=== PATIENT | female | born 1975 | race Hispanic/Latino ===

== ENCOUNTER 2021-07-12 13:44 | Emergency (ER) | payer OTHER ==
[2021-07-12 15:25] LABS: Absolute Lymphocytes (CBC) 1.6 K/uL (0.7-4.9); Basophils % 0.4 % (0-1.3); Hematocrit 39.4 % (36.0-45.0); Lymphocytes % 23.2 % (15.3-44.8); MPV 9.3 fL (7.6-11.3); RBC Red Blood Cell Count 4.36 M/uL (3.86-4.86)
[2021-07-12 15:27] LABS: Protime INR 1.03
[2021-07-12 15:28] LABS: Urine Blood 1+ (Negative); Urine Glucose 2+ (Negative); Urine Protein Negative (Negative)
--- NOTE | 2021-07-12 15:33 | RAD REPORT ---
EXAM DESCRIPTION: RAD - Chest Single View - 07/12/2021 3:18 pm CLINICAL HISTORY: CHEST PAIN Chest pain. COMPARISON: No comparisons FINDINGS: Portable technique limits examination quality. The lungs are grossly clear. The heart is normal in size. No displaced fractures. IMPRESSION: No acute intrathoracic process suspected.
[2021-07-12 15:42] LABS: ALT/SGPT 24 U/L (12-78); AST/SGOT 15 U/L (15-37); Albumin 4.1 g/dL (3.4-5.0); Alkaline Phosphatase 49 U/L (45-117); BUN Blood Urea Nitrogen 22 mg/dL (7-18); Bicarbonate 21 mmol/L (21-32); Bilirubin Direct < 0.1 mg/dL (0-0.2); Bilirubin Total 0.4 mg/dL (0.2-1.0); Glucose Level 186 mg/dL (74-106); Magnesium 2.2 mg/dL (1.8-2.4); NT PRO-BNP 55 pg/mL (<125); Potassium 3.6 mmol/L (3.5-5.1); Protein, Total 7.7 g/dL (6.4-8.2); Sodium Level 141 mmol/L (136-145); Troponin (Emerg Dept Use Only) < 0.02 ng/mL (0.0-0.045)
--- NOTE | 2021-07-12 16:28 | ER ---
Nurse's Notes [facility] Name: Pablito Bonner Age: 46 yrs Sex: Female : 1975 Arrival Date: 07/12/2021 Time: 13:48 Bed 5 Private MD: Diagnosis: Constipation Presentation: 07/12 14:09 Chief complaint: Patient states: intermittent shortness of breath x 2-3 weeks, worse ss today. Constipation, abd pain, R sided chest wall pain and headache x a couple of days. Coronavirus screen: Client denies travel out of the [place] in the last 14 days. Ebola Screen: Patient denies exposure to infectious person. Patient denies travel to an Ebola-affected area in the 21 days before illness onset. Initial Sepsis Screen: Does the patient meet any 2 criteria? No. Patient's initial sepsis screen is negative. Does the patient have a suspected source of infection? No. Patient's initial sepsis screen is negative. Risk Assessment: Do you want to hurt yourself or someone else? Patient reports no desire to harm self or others. Onset of symptoms is unknown. 14:09 Method Of Arrival: Ambulatory ss 14:09 Acuity: KALLI 3 ss Triage Assessment: 14:18 General: Appears in no apparent distress. Respiratory: Reports shortness of breath at 5 rest labored breathing since x3 weeks on and off Onset: The symptoms/episode began/occurred x3 weeks on and off, the patient has mild shortness of breath. 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 - Social history:: Smoking status: Patient denies any tobacco usage or history of. Patient/guardian denies using alcohol, street drugs, The patient lives with family, with spouse. - Family history:: not pertinent. Screenin:17 Abuse screen: Denies threats or abuse. Denies injuries from another. Nutritional jh5 screening: No deficits noted. Tuberculosis screening: No symptoms or risk factors identified. Fall Risk None identified. Assessment: 14:13 General: Appears distressed, well groomed, well developed, Behavior is calm, jh5 cooperative, appropriate for age, anxious. Pain: Denies pain. Neuro: No deficits noted. Level of Consciousness is awake, alert, obeys commands, Oriented to person, place, time, situation, Speech is normal. Cardiovascular: No deficits noted. Capillary refill < 3 seconds Patient's skin is warm and dry. Cardiovascular: Rhythm is regular. Respiratory: Airway is patent Trachea midline Respiratory effort is even, unlabored, Respiratory pattern is symmetrical. 14:15 Reassessment: 46 y/o female with PMHX; kidney stones, DM2, and migraines states she jh5 feels as if she isnt getting enough air. Pt 100% on room air, Pt respirations are even and unlabored, however, every so often, she will take an exaggerated breath. Pt is AAOX4, ambulatory without assist, color is appropriate for ethnicity, skin warm and dry, pt in NAD at this time. Respiratory: Breath sounds are clear bilaterally. Vital Signs: 14:09 Resp 16; Weight 66.22 kg; Height 5 ft. 3 in. (160.02 cm); Pain 5/10; ss 14:17 BP 174 / 81; Pulse 79; Resp 16; Pulse Ox 100% ; jh5 14:09 Body Mass Index 25.86 (66.22 kg, 160.02 cm) ED Course: 13:48 Patient arrived in ED. mr 14:12 Triage completed. 14:13 Anabel Farrell, RN is Primary Nurse. [facility] 14:13 Arm band placed on right wrist. 14:19 Patient has correct armband on for positive identification. Bed in low position. Call [facility] light in reach. Side rails up X 1. 14:19 No provider procedures requiring assistance completed. [facility] 14:27 Marcie Shafer MD is Attending Physician. [facility] 15:18 XRAY Chest (1 view) In Process Unspecified. EDMS Administered Medications: No medications were administered Outcome: 16:28 Discharge ordered by . [facility] 17:00 Patient left the ED. ss Signatures: Dispatcher [employer] EDMS Fabián Sanaz WilliamFarrah saunders, MANDY RN Marcie Shafer MD MD idAnabel De La Vega RN RN [facility] Corrections: (The following items were deleted from the chart) 18:08 18:07 Patient left the ED. ss ss
--- NOTE | 2021-07-12 16:28 | EDPHYS ---
Physician Documentation [facility] Name: Pablito Bonner Age: 46 yrs Sex: Female : 1975 Arrival Date: 07/12/2021 Time: 13:48 Bed 5 Private MD: ED Physician Marcie Shafer HPI: 07/12 14:55 This 46 yrs old Female presents to ER via Ambulatory with complaints of ma2 Breathing Difficulty. 14:55 Onset: The symptoms/episode began/occurred gradually, 3 month(s) ago. Associated signs ma2 and symptoms: Pertinent positives: constipation, Pertinent negatives: chest pain, non-productive cough, productive cough, diaphoresis, fever, hemoptysis, loss of consciousness, nausea, numbness in extremities, visual changes. Severity of symptoms: At their worst the symptoms were moderate in the emergency department the symptoms are unchanged. The patient has not experienced similar symptoms in the past. 14:56 Patient also patient has constipation last bowel movement was 7 days ago.. 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 - Social history:: Smoking status: Patient denies any tobacco usage or history of. Patient/guardian denies using alcohol, street drugs, The patient lives with family, with spouse. - Family history:: not pertinent. ROS: 14:55 Constitutional: Negative for fever, chills, and weight loss. ma2 14:55 All other systems are negative. Exam: 14:55 Constitutional: This is a well developed, well nourished patient who is awake, alert, ma2 and in no acute distress. Head/Face: Normocephalic, atraumatic. Eyes: Pupils equal round and reactive to light, extra-ocular motions intact. Lids and lashes normal. Conjunctiva and sclera are non-icteric and not injected. Cornea within normal limits. Periorbital areas with no swelling, redness, or edema. ENT: Nares patent. No nasal discharge, no septal abnormalities noted. Tympanic membranes are normal and external auditory canals are clear. Oropharynx with no redness, swelling, or masses, exudates, or evidence of obstruction, uvula midline. Mucous membranes moist. Neck: Trachea midline, no thyromegaly or masses palpated, and no cervical lymphadenopathy. Supple, full range of motion without nuchal rigidity, or vertebral point tenderness. No Meningismus. Chest/axilla: Normal chest wall appearance and motion. Nontender with no deformity. No lesions are appreciated. Cardiovascular: Regular rate and rhythm with a normal S1 and S2. No gallops, murmurs, or rubs. Normal PMI, no JVD. No pulse deficits. Respiratory: Lungs have equal breath sounds bilaterally, clear to auscultation and percussion. No rales, rhonchi or wheezes noted. No increased work of breathing, no retractions or nasal flaring. Abdomen/GI: Soft, non-tender, with normal bowel sounds. No distension or tympany. No guarding or rebound. No evidence of tenderness throughout. Back: No spinal tenderness. No costovertebral tenderness. Full range of motion. Skin: Warm, dry with normal turgor. Normal color with no rashes, no lesions, and no evidence of cellulitis. MS/ Extremity: Pulses equal, no cyanosis. Neurovascular intact. Full, normal range of motion. Neuro: Awake and alert, GCS 15, oriented to person, place, time, and situation. Cranial nerves II-XII grossly intact. Motor strength 5/5 in all extremities. Sensory grossly intact. Cerebellar exam normal. Normal gait. Psych: Awake, alert, with orientation to person, place and time. Behavior, mood, and affect are within normal limits. Vital Signs: 14:09 Resp 16; Weight 66.22 kg; Height 5 ft. 3 in. (160.02 cm); Pain 5/10; ss 14:17 BP 174 / 81; Pulse 79; Resp 16; Pulse Ox 100% ; jh5 14:09 Body Mass Index 25.86 (66.22 kg, 160.02 cm) ss MDM: 14:27 Patient medically screened. ma2 14:55 Differential diagnosis: Anemia Anxiety Reaction Bronchitis reactive airway disease. ma2 15:04 ED course: patient had negative covid test few days ado, symptoms are chronic for few ma2 months and she has seen many doctors and got tired and unable to find cause . 16:27 Data reviewed: vital signs, nurses notes, EMS record, [facility] records. Counseling: ma2 I had a detailed discussion with the patient and/or guardian regarding: the historical points, exam findings, and any diagnostic results supporting the discharge/admit diagnosis, the presence of at least one elevated blood pressure reading (>120/80) during this emergency department visit, the need for outpatient follow up. Response to treatment: the patient's symptoms have resolved after treatment. 07/12 14:54 Order name: Basic Metabolic Panel; Complete Time: 16:03 ak2 07/12 14:54 Order name: CBC with Diff; Complete Time: 16:03 ak2 07/12 14:54 Order name: LFT's; Complete Time: 16:03 [facility] 07/12 14:54 Order name: Magnesium; Complete Time: 16:03 ak2 07/12 14:54 Order name: NT PRO-BNP; Complete Time: 16:03 ak2 07/12 14:54 Order name: PT-INR; Complete Time: 16: [facility] 07/12 14:54 Order name: Troponin (emerg Dept Use Only); Complete Time: 16:03 ak2 07/12 14:54 Order name: XRAY Chest (1 view); Complete Time: 16:03 ak2 07/12 14:54 Order name: EKG; Complete Time: 14:54 ak2 07/12 14:54 Order name: Cardiac monitoring; Complete Time: 15:03 ak2 07/12 14:54 Order name: EKG - Nurse/Tech; Complete Time: 15:12 ak2 07/12 14:54 Order name: IV Saline Lock; Complete Time: 15:03 ak2 07/12 14:54 Order name: Labs collected and sent; Complete Time: 15:03 ak2 07/12 15:27 Order name: Urine Dipstick-Ancillary; Complete Time: 16:03 EDMS 07/12 14:54 Order name: O2 Per Protocol; Complete Time: 15:03 ak2 07/12 14:54 Order name: O2 Sat Monitoring; Complete Time: 15:03 ak2 07/12 14:54 Order name: Urine Dipstick-Ancillary (obtain specimen); Complete Time: 15:28 ma2 Administered Medications: No medications were administered Disposition Summary: 07/12/21 16:28 Discharge Ordered Location: Home ma2 Condition: Stable ma2 Diagnosis - Constipation ma2 Followup: ma2 - With: Private Physician - When: Tomorrow - Reason: If symptoms return, Continuance of care Discharge Instructions: - Discharge Summary Sheet ma2 - Constipation, Adult, [id number] ma2 Forms: - Medication Reconciliation Form ma2 - Thank You Letter ma2 - Antibiotic Education ma2 - Prescription Opioid Use ma2 Prescriptions: - Fleet Enema - take 2 unit by RECTAL route 2-4 times daily; 5 vial; Refills: 0, Product ma2 Selection Permitted - Colace 100 mg Oral Tablet - take 1 tablet by ORAL route every 12 hours; 14 tablet; Refills: 0, Product ma2 Selection Permitted Signatures: Dispatcher [employer] Farrah Herrera RN RN ss Alzahri, Mohammad, MD MD ma2
[2021-07-12 18:26] VITALS: BP 174/81; O2SAT 100
--- NOTE | 2021-07-14 20:43 | EKG ---
Test Date: 2021-07-12 Test Time: 15:12:09 Ciaio Lumite Injector: MANDY MEASUREMENT RESULTS: Intervals: Rate: 83 MA: 128 QRSD: 86 QT: 390 QTc: 458 [place]: P: 52 MA: 128 QRS: 71 T: 72 INTERPRETIVE STATEMENTS: Normal sinus rhythm Normal ECG No previous ECG available for comparison Electronically Signed On 07-14-21 20:35:45 APPLICATION DBA by Louis Clay
--- OUTSIDE RECORDS SUMMARY | 2021-07-15 19:35 | XMS REPORT | Continuity of Care Document ---
:1975 Author Organization [facility] t Address [facility] Stephan Malloy [address] [place] [id number] Care Team Providers Name Role Phone Daniel_Charlie Attending Clinician Unavailable Doctor Unassigned, Name Attending Clinician Unavailable Tye ESTEVEZ Attending Clinician RADIOLOGY Attending Clinician Unavailable Raoul SOLIS Attending Clinician Unavailable ARIES FIELDS Attending Clinician Unavailable Aries Fields DO Attending Clinician Beronica EVERETT, S Attending Clinician Stella Pagan MD Attending Clinician Eli FITTING ROOM OPERATOR, J Attending Clinician Lab, Fam Pob I Attending Clinician Unavailable [place] WILLIAM Attending Clinician Pc, Echo Room 1 - Attending Clinician Unavailable Casey ESTEVEZ, K.H. Attending Clinician TYE Attending Clinician Unavailable Stella PAGAN Attending Clinician Unavailable Genaro Attending Clinician Monique ESTEVEZ Attending Clinician MONIQUE Attending Clinician Unavailable Radiology Attending Clinician Unavailable KALI JOYCE Attending Clinician Unavailable Thomas ESTEVEZ Attending Clinician THOMAS Attending Clinician Unavailable KWADWO Attending Clinician Unavailable Dominic ESTEVEZ Attending Clinician Rolando WILLIAM Attending Clinician Pob1, [facility] Attending Clinician Unavailable ROLANDO Attending Clinician Unavailable Mesfin Damico MD Attending Clinician Unavailable Juan Admitting Clinician Unavailable Payers Payer Name Policy Type Policy Number Effective Date Expiration Date Vitor manuel [facility] [id number] 2020 BENEFITS MANAGEMENT 00:00:00 ADMINISTRATIVE [id number] 2019 [employer] 00:00:00 [place] [place] - OUT [id number] 2018 OF STATE 00:00:00 Problems Condition Condition Condition Status Onset Resolution Last Treating Co mments Source Name Details Category Date Date Treatment Clinician Date Abnormal Abnormal Disease Active 2019-09 Unive rs EKG EKG 0-22 ity of 00:00: [place] 00 Medical Branch Insomnia Insomnia Problem Active [place] ge 8-20 Family 00:00: Practic 00 e Finding Finding Problem Active [place] related to Related to 8-20 Fa merlin sleep Sleep 00:00: Practic 00 e Type 2 Type 2 Problem Active [facility] diabetes Diabetes 6-26 Family mellitus Mellitus 00:00: Practi c without without 00 e complicati Complicati on on Vitamin Vitamin Problem Active [place] deficiency Deficiency 6-26 Fa merlin 00:00: Practic 00 e Hyperlipid Hyperlipid Problem Active [facility] illage emia emia 6-26 Family 00:00: Practic 00 e Obesity Obesity Problem Active [place] 6-26 Family 00:00: Practic 00 e Anemia Anemia Problem Active [place] 6-26 Family 00:00: Practic 00 e Migraine Migraine Problem Active [place] 6-26 Family 00:00: Practic 00 e Essential Essential Problem Active Dave arjun hypertensi Hypertensi 6-26 Fa [place]lin on on 00:00: Practic 00 e Weight Weight Problem Active [place] gain Gain 6-26 Family 00:00: Practic 00 e Status Status Problem Active [place] migrainosu Migrainosu 6-26 Fa merlin s s 00:00: Practic 00 e Hypertensi Hypertensi Problem Active V illage ve ve 6-26 Family disorder Disorder 00:00: Practi c 00 e Abnormal Abnormal Problem Active [place] weight Weight 6-26 Family gain Gain 00:00: Practic 00 e Clinical Clinical Problem Active [place] [facility] finding Finding 6-26 Family 00:00: Practic 00 e General General Problem Active [place] finding of Finding of 6-26 Fa merlin observatio Observatio 00:00: Pr actic n of n of 00 e patient Patient Obesity Obesity Disease Active Univers (BMI (BMI 5-23 ity of 30-39.9) 30-39.9) 00:00: [place] 00 Medical Branch Vitamin D Vitamin D Disease Active Uni vers deficiency deficiency 5-13 it y of 00:00: [place] 00 Medical Branch Need for Need for Disease Active Unive rs hepatitis hepatitis 2-20 ity of A A 00:00: [place] immunizati immunizati 00 Me dical on on Branch Abnormal Abnormal Disease Active Unive rs liver liver 2-20 ity of function function 00:00: [place] test test 00 Medical Branch Nodule of Nodule of Disease Active Overview: Univers kidney kidney 1-16 Formattin ity of 00:00: g of this [place] 00 note Medical might be Branch different from the original. Right kidney, Per CT scan done 10/04/17 at [facility]: "focal fatty tissue is seen on the anterolat eral surface near the upper pole of the right kidney, consisten t with a developme ntal variation " Right Right Disease Active Univers flank pain flank pain -09 it y of 00:00: [place] Medical Branch Type 2 Type 2 Disease Active Univers diabetes diabetes 05-08 ity of mellitus mellitus 00:00: [place] with with 00 Medical proteinuri proteinuri Br anch c diabetic c diabetic nephropath nephropath y y Dyslipidem Dyslipidem Disease Active U nivers ia ia 05-08 ity of 00:00: [place] Medical [facility] Essential Essential Disease Active Uni vers hypertensi hypertensi 05-08 it y of on on 00:00: [place] Medical [facility] Proteinuri Proteinuri Disease Active U nivers a a 05-08 ity of 00:00: [place] 00 Medical Branch General General Disease Active 2015-09 Univers counseling counseling 2-21 it y of [place] advice [place] female 00 Medi marian contracept contracept Br anch ion ion Excessive Excessive Disease Active Uni vers or or 05-24 ity of frequent frequent 00:00: [place] menstruati menstruati 00 Me dical on on Branch On On Disease Active Univers Depo-Prove Depo-Prove 9 it y of ra for ra for 00:00: [place] contracept contracept 00 Me dical ion ion Branch Fatty Fatty Disease Active Univers liver liver ity of [place] [facility] H. pylori H. pylori Disease Active Uni vers infection infection ity [facility] Allergies, Adverse Reactions, Alerts Allergy Allergy Status Severity Reaction(s) Onset Inactive Treating Comm ents Source Name Type Date Date Clinician Amoxicil Propensi Active Nausea Univer s mehran-Pot ty to and/or 4-15 ity of Clavulan adverse Vomiting 00:00: [place] ate reaction 00 Medical s Branch AMOXICIL DRUG Active Med Diarrhea Univer s MEHRAN-POT 4-15 ity of CLAVULAN 00:00: [place] ATE 00 Medical Branch Amoxicil Allergy Active Anaphylaxis Vi llage mehran to Family substanc Practic e e Social History Social Habit Start Date Stop Date Quantity Comments Source Exposure to Not sure [facility] SARS-CoV-2 [facility] (event) Essie Alcohol intake 2020-09-16 2020-09-16 Current drinker of Un iversity of 00:00:00 00:00:00 alcohol (finding) [facility] Tobacco use and 2020-09-16 2020-09-16 Never used Universit y of exposure 00:00:00 00:00:00 [facility] Alcohol Comment 2018-07-08 2018-07-08 occaisonal Universit y of 00:00:00 00:00:00 [facility] Sex [birth year] At [birth year] Universit y of 00:00:00 00:00:00 [facility] Smoking Status Start Date Stop Date Source Never smoker [facility] Medications Ordered Filled Start Stop Current Ordering Indication Dosage Frequency Signature Comments Components Source Medication Medication Date Date Medication? Clinician (SIG) Name Name methocarbam Yes [id number] 500mg Take 1 Univers oL 500 mg 1-15 tablet by ity o f tablet 00:00: mouth 4 [place] 00 (four) Medical times Essie daily as needed for Pain (scale 4-6). naproxen Yes [id number] 500mg Take 1 U nivers (NAPROSYN) 1-15 tablet by ity of 500 mg 00:00: mouth 2 [place] tablet 00 (two) Medical times Essie daily with meals. methocarbam Yes [id number] 500mg Take 1 Univers oL 500 mg 1-15 tablet by ity o f tablet 00:00: mouth 4 [place] 00 (four) Medical times Branch daily as needed for Pain (scale 4-6). naproxen 2021-0 Yes [id number] 500mg Take 1 U nivers (NAPROSYN) 1-15 tablet by ity of 500 mg 00:00: mouth 2 [place] tablet 00 (two) Medical times Branch daily with meals. methocarbam 2021-0 Yes [id number] 500mg Take 1 Univers oL 500 mg 1-15 tablet by ity o f tablet 00:00: mouth (four) Medical times Branch daily as needed for Pain (scale 4-6). naproxen 2021-0 Yes [id number] 500mg Take 1 U nivers (NAPROSYN) 1-15 tablet by ity of 500 mg 00:00: mouth 2 [place] tablet 00 (two) Medical times Branch daily with meals. methocarbam 2021-0 Yes [id number] 500mg Take 1 Univers oL 500 mg 1-15 tablet by ity o f tablet 00:00: mouth (four) Medical times Branch daily as needed for Pain (scale 4-6). naproxen 2021-0 Yes [id number] 500mg Take 1 U nivers (NAPROSYN) 1-15 tablet by ity of 500 mg 00:00: mouth 2 [place] tablet 00 (two) Medical times Branch daily with meals. methocarbam 2021-0 Yes [id number] 500mg Take 1 Univers oL 500 mg 1-15 tablet by ity o f tablet 00:00: mouth (four) Medical times Branch daily as needed for Pain (scale 4-6). naproxen 2021-0 Yes [id number] 500mg Take 1 U nivers (NAPROSYN) 1-15 tablet by ity of 500 mg 00:00: mouth 2 [place] tablet 00 (two) Medical times Branch daily with meals. methocarbam 2021-0 Yes [id number] 500mg Take 1 Univers oL 500 mg 1-15 tablet by ity o f tablet 00:00: mouth 4 (four) Medical times Branch daily as needed for Pain (scale 4-6). naproxen 2021-0 Yes [id number] 500mg Take 1 U nivers (NAPROSYN) 1-15 tablet by ity of 500 mg 00:00: mouth 2 [place] tablet 00 (two) Medical times Branch daily with meals. methocarbam 2020-0 Yes [id number] 500mg Take 1 Univers oL 500 mg 1-15 tablet by ity o f tablet 00:00: mouth 4 [place] 00 (four) Medical times Branch daily as needed for Pain (scale 4-6). naproxen 2020-0 Yes [id number] 500mg Take 1 U nivers (NAPROSYN) 1-15 tablet by ity of 500 mg 00:00: mouth 2 [place] tablet 00 (two) Medical times Branch daily with meals. methocarbam 0 Yes [id number] 500mg Take 1 Univers oL 500 mg 1-15 tablet by ity o f tablet 00:00: mouth 4 [place] 00 (four) Medical times Branch daily as needed for Pain (scale 4-6). naproxen 2020- Yes [id number] 500mg Take 1 U nivers (NAPROSYN) 1-15 tablet by ity of 500 mg 00:00: mouth 2 [place] tablet 00 (two) Medical times Branch daily with meals. SITagliptin 2019-09 Yes [id number] 100mg Take 1 Univers (JANUVIA) 0-27 tablet by ity o f 100 mg 00:00: mouth [place] tablet 00 daily. Medical Branch SITagliptin 2019-09 Yes [id number] 100mg Take 1 Univers (JANUVIA) 0-27 tablet by ity o f 100 mg 00:00: mouth [place] tablet 00 daily. Medical Branch SITagliptin 2019-09 Yes [id number] 100mg Take 1 Univers (JANUVIA) 0-27 tablet by ity o f 100 mg 00:00: mouth [place] tablet 00 daily. Medical Branch SITagliptin 2019-09 Yes [id number] 100mg Take 1 Univers (JANUVIA) 0-27 tablet by ity o f 100 mg 00:00: mouth [place] tablet 00 daily. Medical Branch SITagliptin 2020- Yes [id number] 100mg Take 1 Univers (JANUVIA) 0-27 tablet by ity o f 100 mg 00:00: mouth [place] tablet 00 daily. Medical Branch SITagliptin 2019-09 Yes [id number] 100mg Take 1 Univers (JANUVIA) 0-27 tablet by ity o f 100 mg 00:00: mouth [place] tablet 00 daily. Medical Branch SITagliptin 2019-09 Yes [id number] 100mg Take 1 Univers (JANUVIA) 0-27 tablet by ity o f 100 mg 00:00: mouth [place] tablet 00 daily. Medical Branch SITagliptin 2019-09 Yes [id number] 100mg Take 1 Univers (JANUVIA) 0-27 tablet by ity o f 100 mg 00:00: mouth [place] tablet 00 daily. [facility] Branch SITagliptin 2019-09 Yes [id number] 100mg Take 1 Univers (JANUVIA) 0-27 tablet by ity o f 100 mg 00:00: mouth [place] tablet 00 daily. [facility] Branch SITagliptin 2019-09 Yes [id number] 100mg Take 1 Univers (JANUVIA) 0-27 tablet by ity o f 100 mg 00:00: mouth [place] tablet 00 daily. [facility] Branch SITagliptin 2019-09 Yes [id number] 100mg Take 1 Univers (JANUVIA) 0-27 tablet by ity o f 100 mg 00:00: mouth [place] tablet 00 daily. [facility] Branch SITagliptin 2019-09 Yes [id number] 100mg Take 1 Univers (JANUVIA) 0-27 tablet by ity o f 100 mg 00:00: mouth [place] tablet 00 daily. [facility] Branch SITagliptin 2019-09 Yes [id number] 100mg Take 1 Univers (JANUVIA) 0-27 tablet by ity o f 100 mg 00:00: mouth [place] tablet 00 daily. [facility] Branch SITagliptin 2019-09 Yes [id number] 100mg Take 1 Univers (JANUVIA) 0-27 tablet by ity o f 100 mg 00:00: mouth [place] tablet 00 daily. [facility] Branch SITagliptin 2019-09 Yes [id number] 100mg Take 1 Univers (JANUVIA) 0-27 tablet by ity o f 100 mg 00:00: mouth [place] tablet 00 daily. [facility] Branch SITagliptin 2019-09 Yes [id number] 100mg Take 1 Univers (JANUVIA) 0-27 tablet by ity o f 100 mg 00:00: mouth [place] tablet 00 daily. [facility] Branch SITagliptin 2019-09 Yes [id number] 100mg Take 1 Univers (JANUVIA) 0-27 tablet by ity o f 100 mg 00:00: mouth [place] tablet 00 daily. [facility] Branch SITagliptin 2019-09 Yes [id number] 100mg Take 1 Univers (JANUVIA) 0-27 tablet by ity o f 100 mg 00:00: mouth [place] tablet 00 daily. [facility] Branch SITagliptin 2019-09 Yes [id number] 100mg Take 1 Univers (JANUVIA) 0-27 tablet by ity o f 100 mg 00:00: mouth [place] tablet 00 daily. Medical Branch SITagliptin 2020-1 Yes [id number] 100mg Take 1 Univers (JANUVIA) 0-27 tablet by ity o f 100 mg 00:00: mouth [place] tablet 00 daily. Medical Branch nortriptyli 2020-1 Yes TAKE 1 Univ ers ne 10 mg 0-07 CAPSULE BY ity o f capsule 00:00: MOUTH AT [place] BEDTIME Medical INCREASE Branch TO 2 CAPSULES IN TWO WEEKS IF SYMPTOMS NOT IMPROVED nortriptyli 2020-1 Yes TAKE 1 Univ ers ne 10 mg 0-07 CAPSULE BY ity o f capsule 00:00: MOUTH AT [place] BEDTIME Medical INCREASE Branch TO 2 CAPSULES IN TWO WEEKS IF SYMPTOMS NOT IMPROVED nortriptyli 2020- Yes TAKE 1 Univ ers ne 10 mg 0-07 CAPSULE BY ity o f capsule 00:00: MOUTH AT [place] BEDTIME Medical INCREASE Branch TO 2 CAPSULES IN TWO WEEKS IF SYMPTOMS NOT IMPROVED nortriptyli 2020- Yes TAKE 1 Univ ers ne 10 mg 0-07 CAPSULE BY ity o f capsule 00:00: MOUTH AT [place] BEDTIME Medical INCREASE Branch TO 2 CAPSULES IN TWO WEEKS IF SYMPTOMS NOT IMPROVED nortriptyli 2020- Yes TAKE 1 Univ ers ne 10 mg 0-07 CAPSULE BY ity o f capsule 00:00: MOUTH AT [place] BEDTIME Medical INCREASE Branch TO 2 CAPSULES IN TWO WEEKS IF SYMPTOMS NOT IMPROVED nortriptyli 2020- Yes TAKE 1 Univ ers ne 10 mg 0-07 CAPSULE BY ity o f capsule 00:00: MOUTH AT [place] BEDTIME Medical INCREASE Branch TO 2 CAPSULES IN TWO WEEKS IF SYMPTOMS NOT IMPROVED nortriptyli 2020-1 Yes TAKE 1 Univ ers ne 10 mg 0-07 CAPSULE BY ity o f capsule 00:00: MOUTH AT [place] BEDTIME Medical INCREASE Branch TO 2 CAPSULES IN TWO WEEKS IF SYMPTOMS NOT IMPROVED nortriptyli 2020-1 Yes TAKE 1 Univ ers ne 10 mg 0-07 CAPSULE BY ity o f capsule 00:00: MOUTH AT [place] BEDTIME Medical INCREASE Branch TO 2 CAPSULES IN TWO WEEKS IF SYMPTOMS NOT IMPROVED nortriptyli 2020- Yes TAKE 1 Univ ers ne 10 mg 0-07 CAPSULE BY ity o f capsule 00:00: MOUTH AT BEDTIME Medical INCREASE Branch TO 2 CAPSULES IN TWO WEEKS IF SYMPTOMS NOT IMPROVED nortriptyli 2020-1 Yes TAKE 1 Univ ers ne 10 mg 0-07 CAPSULE BY ity o f capsule 00:00: MOUTH AT [place] BEDTIME Medical INCREASE Branch TO 2 CAPSULES IN TWO WEEKS IF SYMPTOMS NOT IMPROVED nortriptyli 2020-1 Yes TAKE 1 Univ ers ne 10 mg 0-07 CAPSULE BY ity o f capsule 00:00: MOUTH AT [place] BEDTIME Medical INCREASE Branch TO 2 CAPSULES IN TWO WEEKS IF SYMPTOMS NOT IMPROVED nortriptyli 2020-1 Yes TAKE 1 Univ ers ne 10 mg 0-07 CAPSULE BY ity o f capsule 00:00: MOUTH AT [place] BEDTIME Medical INCREASE Branch TO 2 CAPSULES IN TWO WEEKS IF SYMPTOMS NOT IMPROVED nortriptyli 2020-1 Yes TAKE 1 Univ ers ne 10 mg 0-07 CAPSULE BY ity o f capsule 00:00: MOUTH AT [place] BEDTIME Medical INCREASE Branch TO 2 CAPSULES IN TWO WEEKS IF SYMPTOMS NOT IMPROVED nortriptyli 2020- Yes TAKE 1 Univ ers ne 10 mg 0-07 CAPSULE BY ity o f capsule 00:00: MOUTH AT [place] BEDTIME Medical INCREASE Branch TO 2 CAPSULES IN TWO WEEKS IF SYMPTOMS NOT IMPROVED nortriptyli 2020-1 Yes TAKE 1 Univ ers ne 10 mg 0-07 CAPSULE BY ity o f capsule 00:00: MOUTH AT [place] BEDTIME Medical INCREASE Branch TO 2 CAPSULES IN TWO WEEKS IF SYMPTOMS NOT IMPROVED nortriptyli 2020-1 Yes TAKE 1 Univ ers ne 10 mg 0-07 CAPSULE BY ity o f capsule 00:00: MOUTH AT [place] BEDTIME Medical INCREASE Branch TO 2 CAPSULES IN TWO WEEKS IF SYMPTOMS NOT IMPROVED nortriptyli 2020-1 Yes TAKE 1 Univ ers ne 10 mg 0-07 CAPSULE BY ity o f capsule 00:00: MOUTH AT [place] BEDTIME Medical INCREASE Branch TO 2 CAPSULES IN TWO WEEKS IF SYMPTOMS NOT IMPROVED nortriptyli 2020-1 Yes TAKE 1 Univ ers ne 10 mg 0-07 CAPSULE BY ity o f capsule 00:00: MOUTH AT [place] BEDTIME Medical INCREASE Branch TO 2 CAPSULES IN TWO WEEKS IF SYMPTOMS NOT IMPROVED nortriptyli 2020-1 Yes TAKE 1 Univ ers ne 10 mg 0-07 CAPSULE BY ity o f capsule 00:00: MOUTH AT [place] BEDTIME Medical INCREASE Branch TO 2 CAPSULES IN TWO WEEKS IF SYMPTOMS NOT IMPROVED nortriptyli 2020-1 Yes TAKE 1 Univ ers ne 10 mg 0-07 CAPSULE BY ity o f capsule 00:00: MOUTH AT [place] 00 BEDTIME Medical INCREASE Branch TO 2 CAPSULES IN TWO WEEKS IF SYMPTOMS NOT IMPROVED nortriptyli 2020-1 Yes TAKE 1 Univ ers ne 10 mg 0-07 CAPSULE BY ity o f capsule 00:00: MOUTH AT [place] 00 BEDTIME Medical INCREASE Branch TO 2 CAPSULES IN TWO WEEKS IF SYMPTOMS NOT IMPROVED nortriptyli 2020- Yes TAKE 1 Univ ers ne 10 mg 0-07 CAPSULE BY ity o f capsule 00:00: MOUTH AT [place] 00 BEDTIME Medical INCREASE Branch TO 2 CAPSULES IN TWO WEEKS IF SYMPTOMS NOT IMPROVED nortriptyli 2020- Yes TAKE 1 Univ ers ne 10 mg 0-07 CAPSULE BY ity o f capsule 00:00: MOUTH AT [place] 00 BEDTIME Medical INCREASE Branch TO 2 CAPSULES IN TWO WEEKS IF SYMPTOMS NOT IMPROVED doxycycline 2020-0 Yes [id number] 100mg Take 1 Univers monohydrate 8-25 capsule by it y of 100 mg 00:00: mouth 2 [place] capsule 00 (two) Medical times Branch daily. doxycycline 2020-0 Yes [id number] 100mg Take 1 Univers monohydrate 8-25 capsule by it y of 100 mg 00:00: mouth 2 [place] capsule 00 (two) Medical times Branch daily. doxycycline 2020-0 Yes [id number] 100mg Take 1 Univers monohydrate 8-25 capsule by it y of 100 mg 00:00: mouth 2 [place] capsule 00 (two) Medical times Branch daily. doxycycline 2020-0 Yes [id number] 100mg Take 1 Univers monohydrate 8-25 capsule by it y of 100 mg 00:00: mouth 2 [place] capsule 00 (two) Medical times Branch daily. doxycycline 2020-0 Yes [id number] 100mg Take 1 Univers monohydrate 8-25 capsule by it y of 100 mg 00:00: mouth 2 [place] capsule 00 (two) Medical times Branch daily. doxycycline 2020-0 Yes [id number] 100mg Take 1 Univers monohydrate 8-25 capsule by it y of 100 mg 00:00: mouth 2 [place] capsule 00 (two) Medical times Branch daily. doxycycline 2020-0 Yes [id number] 100mg Take 1 Univers monohydrate 8-25 capsule by it y of 100 mg 00:00: mouth 2 [place] capsule 00 (two) Medical times Branch daily. doxycycline 2020-0 2020- No [id number] 100mg Take 1 Univers monohydrate 8-25 10-20 capsule by i ty of 100 mg 00:00: 00:00 mouth 2 [place] capsule 00 :00 (two) Medical times Branch daily. doxycycline 2020-0 2020- No [id number] 100mg Take 1 Univers monohydrate 8-25 10-20 capsule by i ty of 100 mg 00:00: 00:00 mouth 2 [place] capsule 00 :00 (two) Medical times Branch daily. doxycycline 2020-0 2020- No [id number] 100mg Take 1 Univers monohydrate 8-25 10-20 capsule by i ty of 100 mg 00:00: 00:00 mouth 2 [place] capsule 00 :00 (two) Medical times Branch daily. traMADol 50 2020-0 Yes [id number] 50mg Take 1 Univers mg tablet 6-03 9107 tablet by ity o f 00:00: mouth [place] 00 every 6 Medical (six) Branch hours as needed for Pain (scale 4-6). traMADol 50 2020-0 Yes [id number] 50mg Take 1 Univers mg tablet 6-03 9107 tablet by ity o f 00:00: mouth [place] 00 every 6 Medical (six) Branch hours as needed for Pain (scale 4-6). traMADol 50 2020-0 Yes [id number] 50mg Take 1 Univers mg tablet 6-03 9107 tablet by ity o f 00:00: mouth [place] 00 every 6 Medical (six) Branch hours as needed for Pain (scale 4-6). traMADol 50 2020-0 Yes [id number] 50mg Take 1 Univers mg tablet 6-03 9107 tablet by ity o f 00:00: mouth [place] 00 every 6 Medical (six) Branch hours as needed for Pain (scale 4-6). traMADol 50 2020-0 Yes [id number] 50mg Take 1 Univers mg tablet 6-03 9107 tablet by ity o f 00:00: mouth [place] 00 every 6 Medical (six) Branch hours as needed for Pain (scale 4-6). traMADol 50 2020-0 Yes [id number] 50mg Take 1 Univers mg tablet 6-03 9107 tablet by ity o f 00:00: mouth [place] 00 every 6 Medical (six) Branch hours as needed for Pain (scale 4-6). traMADol 50 2020-0 Yes [id number] 50mg Take 1 Univers mg tablet 02-02 9107 tablet by ity o f 00:00: mouth [place] 00 every 6 Medical (six) Branch hours as needed for Pain (scale 4-6). traMADol 50 2020-0 Yes [id number] 50mg Take 1 Univers mg tablet 02-02 9107 tablet by ity o f 00:00: mouth [place] 00 every 6 Medical (six) Branch hours as needed for Pain (scale 4-6). traMADol 50 2020-0 Yes [id number] 50mg Take 1 Univers mg tablet 02-02 9107 tablet by ity o f 00:00: mouth [place] 00 every 6 Medical (six) Branch hours as needed for Pain (scale 4-6). traMADol 50 2020-0 Yes [id number] 50mg Take 1 Univers mg tablet 02-02 9107 tablet by ity o f 00:00: mouth [place] 00 every 6 Medical (six) Branch hours as needed for Pain (scale 4-6). traMADol 50 2019-0 Yes [id number] 50mg Take 1 Univers mg tablet 02-02 9107 tablet by ity o f 00:00: mouth [place] 00 every 6 Medical (six) Branch hours as needed for Pain (scale 4-6). traMADol 50 2019-0 2020- No [id number] 50mg Take 1 Univers mg tablet 02-02 9107 tablet by ity of 00:00: 00:00 mouth [place] 00 :00 every 6 Medical (six) Branch hours as needed for Pain (scale 4-6). traMADol 50 2019-0 2020- No [id number] 50mg Take 1 Univers mg tablet 02-02 9107 tablet by ity of 00:00: 00:00 mouth [place] 00 :00 every 6 Medical (six) Branch hours as needed for Pain (scale 4-6). traMADol 50 2020-0 2020- No [id number] 50mg Take 1 Univers mg tablet 02-02 9107 tablet by ity of 00:00: 00:00 mouth [place] 00 :00 every 6 Medical (six) Branch hours as needed for Pain (scale 4-6). azithromyci 2020-0 Yes [id number] 250mg Take 1 Univers n 250 mg 4-06 tablet by ity of tablet 00:00: mouth [place] 00 daily. Medical Take 500 Branch mg day 1, then 250 mg days 2 to 5. azithromyci 2020-0 Yes [id number] 250mg Take 1 Univers n 250 mg 4-06 tablet by ity of tablet 00:00: mouth [place] 00 daily. Medical Take 500 Branch mg day 1, then 250 mg days 2 to 5. azithromyci 2020-0 Yes [id number] 250mg Take 1 Univers n 250 mg 4-06 tablet by ity of tablet 00:00: mouth [place] 00 daily. Medical Take 500 Branch mg day 1, then 250 mg days 2 to 5. azithromyci 2020-0 Yes [id number] 250mg Take 1 Univers n 250 mg 4-06 tablet by ity of tablet 00:00: mouth [place] 00 daily. Medical Take 500 Branch mg day 1, then 250 mg days 2 to 5. azithromyci 2020-0 Yes [id number] 250mg Take 1 Univers n 250 mg 4-06 tablet by ity of tablet 00:00: mouth [place] 00 daily. Medical Take 500 Branch mg day 1, then 250 mg days 2 to 5. azithromyci 2020-0 Yes [id number] 250mg Take 1 Univers n 250 mg 4-06 tablet by ity of tablet 00:00: mouth [place] 00 daily. Medical Take 500 Branch mg day 1, then 250 mg days 2 to 5. azithromyci 2020-0 Yes [id number] 250mg Take 1 Univers n 250 mg 4-06 tablet by ity of tablet 00:00: mouth [place] 00 daily. Medical Take 500 Branch mg day 1, then 250 mg days 2 to 5. azithromyci 2020-0 Yes [id number] 250mg Take 1 Univers n 250 mg 4-06 tablet by ity of tablet 00:00: mouth [place] 00 daily. Medical Take 500 Branch mg day 1, then 250 mg days 2 to 5. azithromyci 2020-0 Yes [id number] 250mg Take 1 Univers n 250 mg 4-06 tablet by ity of tablet 00:00: mouth [place] 00 daily. Medical Take 500 Branch mg day 1, then 250 mg days 2 to 5. azithromyci 2020-0 Yes [id number] 250mg Take 1 Univers n 250 mg 4-06 tablet by ity of tablet 00:00: mouth [place] 00 daily. Medical Take 500 Branch mg day 1, then 250 mg days 2 to 5. azithromyci 2020-0 Yes [id number] 250mg Take 1 Univers n 250 mg 4-06 tablet by ity of tablet 00:00: mouth [place] 00 daily. Medical Take 500 Branch mg day 1, then 250 mg days 2 to 5. azithromyci 2020-0 Yes [id number] 250mg Take 1 Univers n 250 mg 4-06 tablet by ity of tablet 00:00: mouth [place] 00 daily. Medical Take 500 Branch mg day 1, then 250 mg days 2 to 5. azithromyci 2020-0 Yes [id number] 250mg Take 1 Univers n 250 mg 4-06 tablet by [facility] tablet 00:00: mouth [place] 00 daily. Medical Take 500 Branch mg day 1, then 250 mg days 2 to 5. azithromyci 2020-0 2020- No [id number] 250mg Take 1 [facility] 250 mg 4-06 10-20 tablet by [facility] f tablet 00:00: 00:00 mouth [place] 00 :00 daily. Medical Take 500 Branch mg day 1, then 250 mg days 2 to 5. azithromyci 2020-0 2020- No [id number] 250mg Take 1 [facility] 250 mg 4-06 10-20 tablet by [facility] f tablet 00:00: 00:00 mouth [place] 00 :00 daily. Medical Take 500 Branch mg day 1, then 250 mg days 2 to 5. azithromyci 2020-0 2020- No [id number] 250mg Take 1 [facility] 250 mg 4-06 10-20 tablet by [facility] f tablet 00:00: 00:00 mouth [place] 00 :00 daily. Medical Take 500 Branch mg day 1, then 250 mg days 2 to 5. LISINOPRIL 2020-0 Yes [id number] TAKE 1 [facility] 10 mg 2-21 TABLET BY [facility] tablet 00:00: MOUTH ONCE [place] 00 DAILY Medical Branch LISINOPRIL 2020-0 Yes [id number] TAKE 1 [facility] 10 mg 2-21 TABLET BY [facility] tablet 00:00: MOUTH ONCE [place] 00 DAILY Medical Branch LISINOPRIL 2020-0 Yes [id number] TAKE 1 [facility] 10 mg 2-21 TABLET BY [facility] tablet 00:00: MOUTH ONCE [place] 00 DAILY Medical Branch LISINOPRIL 2020-0 Yes [id number] TAKE 1 [facility] 10 mg 2-21 TABLET BY [facility] tablet 00:00: MOUTH ONCE DAILY Medical Branch LISINOPRIL 2020-0 Yes [id number] TAKE 1 [facility] 10 mg 2-21 TABLET BY [facility] tablet 00:00: MOUTH ONCE DAILY [facility] LISINOPRIL 2020-0 Yes [id number] TAKE 1 [facility] 10 mg 2-21 TABLET BY [facility] tablet 00:00: MOUTH ONCE DAILY [facility] LISINOPRIL 2020-0 Yes [id number] TAKE 1 [facility] 10 mg 2-21 TABLET BY [facility] tablet 00:00: MOUTH ONCE DAILY [facility] LISINOPRIL 2020-0 Yes [id number] TAKE 1 [facility] 10 mg 2-21 TABLET BY [facility] tablet 00:00: MOUTH ONCE DAILY [facility] LISINOPRIL 2020-0 Yes [id number] TAKE 1 [facility] 10 mg 2-21 TABLET BY [facility] tablet 00:00: MOUTH ONCE DAILY [facility] LISINOPRIL 2020-0 Yes [id number] TAKE 1 [facility] 10 mg 2-21 TABLET BY [facility] tablet 00:00: MOUTH ONCE DAILY [facility] LISINOPRIL 2020-0 Yes [id number] TAKE 1 [facility] 10 mg 2-21 TABLET BY [facility] tablet 00:00: MOUTH ONCE DAILY [facility] LISINOPRIL 2020-0 Yes [id number] TAKE 1 [facility] 10 mg 2-21 TABLET BY [facility] tablet 00:00: MOUTH ONCE DAILY [facility] LISINOPRIL 2020-0 Yes [id number] TAKE 1 [facility] 10 mg 2-21 TABLET BY [facility] tablet 00:00: MOUTH ONCE DAILY [facility] LISINOPRIL 2020-0 Yes [id number] TAKE 1 [facility] 10 mg 2-21 TABLET BY [facility] tablet 00:00: MOUTH ONCE DAILY [facility] LISINOPRIL 2020-0 Yes [id number] TAKE 1 [facility] 10 mg 2-21 TABLET BY [facility] tablet 00:00: MOUTH ONCE DAILY [facility] LISINOPRIL 2020-0 Yes [id number] TAKE 1 [facility] 10 mg 2-21 TABLET BY [facility] tablet 00:00: MOUTH ONCE [place] 00 DAILY Medical [facility] LISINOPRIL 2019-0 2020- No [id number] TAKE 1 [facility] 10 mg 2-21 10-20 TABLET BY [facility] tablet 00:00: 00:[place] DA[place] [facility] LISINOPRIL 2019-0 2020- No [id number] TAKE 1 [facility] 10 mg 2-21 10-20 TABLET BY [facility] tablet 00:00: 00:[place]CE [place] 00 :[place] DAILY [facility] LISINOPRIL 2019-0 2020- No [id number] TAKE 1 [facility] 10 mg 2-21 10-20 TABLET BY [facility] tablet 00:00: 00:[place]TH [place]CE [place] 00 :00 DAILY [facility] lisinopril Yes [id number] 10mg Take 1 [facility] 10 mg 8-08 tablet by [facility] tablet 00:00: mouth [place] 00 daily. Medical [facility] lisinopril 2018- 2020- No [id number] 10mg Take 1 [facility] 10 mg 8-08 02-21 tablet by [facility] tablet 00:00: 00:00 mouth [place] 00 :00 daily. Medical Branch metroNIDAZO 2019-0 Yes [id number] 500mg Take 1 [facility] 500 mg 5-24 tablet by [facility] f tablet 00:00: mouth [place] 00 every 12 Medical (twelve) Branch hours. metroNIDAZO 2018-0 Yes [id number] 500mg Take 1 [facility] 500 mg 5-24 tablet by [facility] f tablet 00:00: mouth [place] 00 every 12 Medical (twelve) Branch hours. metroNIDAZO 2018- Yes [id number] 500mg Take 1 [facility] 500 mg 5-24 tablet by [facility] f tablet 00:00: mouth [place] 00 every 12 Medical (twelve) Branch hours. metroNIDAZO 2018- Yes [id number] 500mg Take 1 [facility] 500 mg 5-24 tablet by [facility] f tablet 00:00: mouth [place] 00 every 12 Medical (twelve) Branch hours. metroNIDAZO 2019-0 Yes [id number] 500mg Take 1 [facility] 500 mg 5-24 tablet by [facility] f tablet 00:00: mouth [place] 00 every 12 Medical (twelve) Branch hours. metroNIDAZO 2018-0 Yes [id number] 500mg Take 1 [facility] 500 mg 5-24 tablet by [facility] f tablet 00:00: mouth [place] 00 every 12 Medical (twelve) Branch hours. metroNIDAZO 2019-0 Yes [id number] 500mg Take 1 [facility] 500 mg 5-24 tablet by [facility] f tablet 00:00: mouth [place] 00 every 12 Medical (twelve) Branch hours. metroNIDAZO 2019-0 Yes [id number] 500mg Take 1 [facility] 500 mg 5-24 tablet by [facility] f tablet 00:00: mouth [place] 00 every 12 Medical (twelve) Branch hours. metroNIDAZO 2019-0 Yes [id number] 500mg Take 1 [facility] 500 mg 5-24 tablet by [facility] f tablet 00:00: mouth [place] 00 every 12 Medical (twelve) Branch hours. metroNIDAZO 2019-0 Yes [id number] 500mg Take 1 [facility] 500 mg 5-24 tablet by [facility] f tablet 00:00: mouth [place] 00 every 12 Medical (twelve) Branch hours. metroNIDAZO 2019-0 Yes [id number] 500mg Take 1 [facility] 500 mg 5-24 tablet by [facility] f tablet 00:00: mouth [place] 00 every 12 Medical (twelve) Branch hours. metroNIDAZO 2019-0 Yes [id number] 500mg Take 1 [facility] 500 mg 5-24 tablet by [facility] f tablet 00:00: mouth [place] 00 every 12 Medical (twelve) Branch hours. metroNIDAZO 2019-0 Yes [id number] 500mg Take 1 [facility] 500 mg 5-24 tablet by [facility] f tablet 00:00: mouth [place] 00 every 12 Medical (twelve) Branch hours. metroNIDAZO 2019-0 Yes [id number] 500mg Take 1 [facility] 500 mg 5-24 tablet by [facility] f tablet 00:00: mouth [place] 00 every 12 Medical (twelve) Branch hours. metroNIDAZO 2019-0 Yes [id number] 500mg Take 1 [facility] 500 mg 5-24 tablet by [facility] f tablet 00:00: mouth [place] 00 every 12 Medical (twelve) Branch hours. metroNIDAZO 2019-0 Yes [id number] 500mg Take 1 [facility] 500 mg 5-24 tablet by [facility] f tablet 00:00: mouth [place] 00 every 12 Medical (twelve) Branch hours. metroNIDAZO 2019-0 Yes [id number] 500mg Take 1 [facility] 500 mg 5-24 tablet by [facility] f tablet 00:00: mouth [place] 00 every 12 Medical (twelve) Branch hours. metroNIDAZO 2019-0 Yes [id number] 500mg Take 1 [facility] 500 mg 5-24 tablet by [facility] f tablet 00:00: mouth [place] 00 every 12 Medical (twelve) Branch hours. metroNIDAZO 2020- No [id number] 500mg Take 1 [facility] 500 mg 5-24 10-20 tablet by [facility] tablet 00:00: 00:00 mouth [place] 00 :00 every 12 Medical (twelve) Branch hours. metroNIDAZO 2018- 2020- No [id number] 500mg Take 1 [facility] 500 mg 5-24 10-20 tablet by [facility] tablet 00:00: 00:00 mouth [place] 00 :00 every 12 Medical (twelve) Branch hours. metroNIDAZO 2018- 2020- No [id number] 500mg Take 1 [facility] 500 mg 5-24 10-20 tablet by [facility] tablet 00:00: 00:00 mouth [place] 00 :00 every 12 Medical (twelve) Branch hours. METFORMIN 2019-0 Yes [id number] TAKE 1 [facility] 1,000 mg 4-22 TABLET BY [facility] tablet 00:00: MOUTH [place] 00 TWICE Medical DAILY WITH Branch MEALS METFORMIN 2019-0 Yes [id number] TAKE 1 [facility] 1,000 mg 4-22 TABLET BY [facility] tablet 00:00: MOUTH [place] 00 TWICE Medical DAILY WITH Branch MEALS METFORMIN 2019-0 Yes [id number] TAKE 1 [facility] 1,000 mg 4-22 TABLET BY [facility] tablet 00:00: MOUTH [place] 00 TWICE Medical DAILY WITH Branch MEALS METFORMIN 2019-0 Yes [id number] TAKE 1 [facility] 1,000 mg 4-22 TABLET BY [facility] tablet 00:00: MOUTH [place] 00 TWICE Medical DAILY WITH Branch MEALS METFORMIN 2019-0 Yes [id number] TAKE 1 [facility] 1,000 mg 4-22 TABLET BY [facility] tablet 00:00: MOUTH [place] 00 TWICE Medical DAILY WITH Branch MEALS METFORMIN 2019-0 Yes [id number] TAKE 1 [facility] 1,000 mg 4-22 TABLET BY [facility] tablet 00:00: MOUTH [place] 00 TWICE Medical DAILY WITH Branch MEALS METFORMIN 2019-0 Yes [id number] TAKE 1 [facility] 1,000 mg 4-22 TABLET BY [facility] tablet 00:00: MOUTH [place] 00 TWICE Medical DAILY WITH Branch MEALS METFORMIN 2019-0 Yes [id number] TAKE 1 [facility] 1,000 mg 4-22 TABLET BY [facility] tablet 00:00: MOUTH [place] 00 TWICE Medical DAILY WITH Branch MEALS METFORMIN 2019-0 Yes [id number] TAKE 1 [facility] 1,000 mg 4-22 TABLET BY [facility] tablet 00:00: MOUTH 00 TWICE Medical DAILY WITH Branch MEALS METFORMIN 2019-0 Yes [id number] TAKE 1 [facility] 1,000 mg 4-22 TABLET BY [facility] tablet 00:00: MOUTH 00 TWICE Medical DAILY WITH Branch MEALS METFORMIN 2019-0 Yes [id number] TAKE 1 [facility] 1,000 mg 4-22 TABLET BY [facility] tablet 00:00: MOUTH [place] 00 TWICE Medical DAILY WITH Branch MEALS METFORMIN 2019-0 Yes [id number] TAKE 1 [facility] 1,000 mg 4-22 TABLET BY [facility] tablet 00:00: MOUTH 00 TWICE Medical DAILY WITH Branch MEALS METFORMIN 2019-0 Yes [id number] TAKE 1 [facility] 1,000 mg 4-22 TABLET BY [facility] tablet 00:00: MOUTH 00 TWICE Medical DAILY WITH Branch MEALS METFORMIN 2019-0 Yes [id number] TAKE 1 [facility] 1,000 mg 4-22 TABLET BY [facility] tablet 00:00: MOUTH 00 TWICE Medical DAILY WITH Branch MEALS METFORMIN 2019-0 Yes [id number] TAKE 1 [facility] 1,000 mg 4-22 TABLET BY [facility] tablet 00:00: MOUTH 00 TWICE Medical DAILY WITH Branch MEALS METFORMIN 2019-0 Yes [id number] TAKE 1 [facility] 1,000 mg 4-22 TABLET BY [facility] tablet 00:00: MOUTH 00 TWICE Medical DAILY WITH Branch MEALS METFORMIN 2019-0 Yes [id number] TAKE 1 [facility] 1,000 mg 4-22 TABLET BY [facility] tablet 00:00: MOUTH 00 TWICE Medical DAILY WITH Branch MEALS METFORMIN 2019-0 Yes [id number] TAKE 1 [facility] 1,000 mg 4-22 TABLET BY [facility] tablet 00:00: MOUTH 00 TWICE Medical DAILY WITH Branch MEALS METFORMIN 2019-0 Yes [id number] TAKE 1 [facility] 1,000 mg 4-22 TABLET BY [facility] tablet 00:00: MOUTH [place] 00 TWICE Medical DAILY WITH Branch MEALS METFORMIN 2019-0 Yes [id number] TAKE 1 [facility] 1,000 mg 4-22 TABLET BY [facility] tablet 00:00: MOUTH 00 TWICE Medical DAILY WITH Branch MEALS METFORMIN 2019-0 Yes [id number] TAKE 1 [facility] 1,000 mg 4-22 TABLET BY [facility] tablet 00:00: MOUTH [place] 00 TWICE Medical DAILY WITH Branch MEALS METFORMIN 2019-0 Yes [id number] TAKE 1 [facility] 1,000 mg 4-22 TABLET BY [facility] tablet 00:00: MOUTH [place] 00 TWICE Medical DAILY WITH Branch MEALS METFORMIN 2019-0 Yes [id number] TAKE 1 [facility] 1,000 mg 4-22 TABLET BY [facility] tablet 00:00: MOUTH 00 TWICE Medical DAILY WITH Branch MEALS METFORMIN 2019-0 Yes [id number] TAKE 1 [facility] 1,000 mg 4-22 TABLET BY [facility] tablet 00:00: MOUTH [place] 00 TWICE Medical DAILY WITH Branch MEALS METFORMIN 2019-0 Yes [id number] TAKE 1 [facility] 1,000 mg 4-22 TABLET BY [facility] tablet 00:00: MOUTH 00 TWICE Medical DAILY WITH Branch MEALS METFORMIN 2019-0 Yes [id number] TAKE 1 [facility] 1,000 mg 4-22 TABLET BY [facility] tablet 00:00: MOUTH 00 TWICE Medical DAILY WITH Branch MEALS METFORMIN 2019-0 Yes [id number] TAKE 1 [facility] 1,000 mg 4-22 TABLET BY [facility] tablet 00:00: MOUTH 00 TWICE Medical DAILY WITH Branch MEALS METFORMIN 2019-0 Yes [id number] TAKE 1 [facility] 1,000 mg 4-22 TABLET BY [facility] tablet 00:00: MOUTH 00 TWICE Medical DAILY WITH Branch MEALS METFORMIN 2019-0 Yes [id number] TAKE 1 [facility] 1,000 mg 4-22 TABLET BY [facility] tablet 00:00: MOUTH 00 TWICE Medical DAILY WITH Branch MEALS METFORMIN 2019-0 Yes [id number] TAKE 1 [facility] 1,000 mg 4-22 TABLET BY [facility] tablet 00:00: MOUTH [place] 00 TWICE Medical DAILY WITH Branch MEALS METFORMIN 2019-0 Yes [id number] TAKE 1 [facility] 1,000 mg 4-22 TABLET BY [facility] tablet 00:00: MOUTH 00 TWICE Medical DAILY WITH Branch MEALS METFORMIN 2019-0 Yes [id number] TAKE 1 [facility] 1,000 mg 4-22 TABLET BY [facility] tablet 00:00: MOUTH [place] 00 TWICE Medical DAILY WITH Branch MEALS METFORMIN 2019-0 Yes [id number] TAKE 1 [facility] 1,000 mg 4-22 TABLET BY [facility] tablet 00:00: MOUTH 00 TWICE Medical DAILY WITH Branch MEALS METFORMIN 2019-0 Yes [id number] TAKE 1 [facility] 1,000 mg 4-22 TABLET BY [facility] tablet 00:00: MOUTH [place] 00 TWICE Medical DAILY WITH Branch MEALS METFORMIN 2019-0 Yes [id number] TAKE 1 [facility] 1,000 mg 4-22 TABLET BY [facility] tablet 00:00: MOUTH [place] 00 TWICE Medical DAILY WITH Branch MEALS METFORMIN 2019-0 Yes [id number] TAKE 1 [facility] 1,000 mg 4-22 TABLET BY [facility] tablet 00:00: MOUTH 00 TWICE Medical DAILY WITH Branch MEALS METFORMIN 2019-0 Yes [id number] TAKE 1 [facility] 1,000 mg 4-22 TABLET BY [facility] tablet 00:00: MOUTH [place] 00 TWICE Medical DAILY WITH Branch MEALS METFORMIN 2019-0 Yes [id number] TAKE 1 [facility] 1,000 mg 4-22 TABLET BY [facility] tablet 00:00: MOUTH 00 TWICE Medical DAILY WITH Branch MEALS METFORMIN 2019-0 Yes [id number] TAKE 1 [facility] 1,000 mg 4-22 TABLET BY [facility] tablet 00:00: MOUTH 00 TWICE Medical DAILY WITH Branch MEALS METFORMIN 2019-0 Yes [id number] TAKE 1 [facility] 1,000 mg 4-22 TABLET BY [facility] tablet 00:00: MOUTH 00 TWICE Medical DAILY WITH Branch MEALS METFORMIN 2019-0 Yes [id number] TAKE 1 [facility] 1,000 mg 4-22 TABLET BY [facility] tablet 00:00: MOUTH 00 TWICE Medical DAILY WITH Branch MEALS METFORMIN 2019-0 Yes [id number] TAKE 1 [facility] 1,000 mg 4-22 TABLET BY [facility] tablet 00:00: MOUTH 00 TWICE Medical DAILY WITH Branch MEALS METFORMIN 2019-0 Yes [id number] TAKE 1 [facility] 1,000 mg 4-22 TABLET BY [facility] tablet 00:00: MOUTH 00 TWICE Medical DAILY WITH Branch MEALS METFORMIN 2019-0 Yes [id number] TAKE 1 [facility] 1,000 mg 4-22 TABLET BY [facility] tablet 00:00: MOUTH 00 TWICE Medical DAILY WITH Branch MEALS METFORMIN 2019-0 Yes [id number] TAKE 1 [facility] 1,000 mg 4-22 TABLET BY [facility] tablet 00:00: MOUTH 00 TWICE Medical DAILY WITH Branch MEALS METFORMIN 2019-0 Yes [id number] TAKE 1 [facility] 1,000 mg 4-22 TABLET BY [facility] tablet 00:00: MOUTH 00 TWICE Medical DAILY WITH Branch MEALS METFORMIN 2019-0 Yes [id number] TAKE 1 [facility] 1,000 mg 4-22 TABLET BY [facility] tablet 00:00: MOUTH 00 TWICE Medical DAILY WITH Branch MEALS METFORMIN 2019-0 Yes [id number] TAKE 1 [facility] 1,000 mg 4-22 TABLET BY [facility] tablet 00:00: MOUTH 00 TWICE Medical DAILY WITH Branch MEALS topiramate 2019-0 Yes 50mg Take 1 [facility] 50 mg 1-28 tablet by [facility] tablet 00:00: mouth (two) Medical times Branch daily. topiramate 2019-0 Yes 50mg Take 1 [facility] 50 mg 1-28 tablet by [facility] tablet 00:00: mouth (two) Medical times Branch daily. topiramate 2019-0 Yes 50mg Take 1 [facility] 50 mg 1-28 tablet by [facility] tablet 00:00: mouth (two) Medical times Branch daily. topiramate 2019-0 Yes 50mg Take 1 [facility] 50 mg 1-28 tablet by [facility] tablet 00:00: mouth (two) Medical times Branch daily. topiramate 2019-0 Yes 50mg Take 1 [facility] 50 mg 1-28 tablet by [facility] tablet 00:00: mouth (two) Medical times Branch daily. topiramate 2019-0 Yes 50mg Take 1 [facility] 50 mg 1-28 tablet by [facility] tablet 00:00: mouth (two) Medical times Branch daily. topiramate 2019-0 Yes 50mg Take 1 [facility] 50 mg 1-28 tablet by [facility] tablet 00:00: mouth (two) Medical times Branch daily. topiramate 2019-0 Yes 50mg Take 1 [facility] 50 mg 1-28 tablet by [facility] tablet 00:00: mouth (two) Medical times Branch daily. topiramate 2019-0 Yes 50mg Take 1 [facility] 50 mg 1-28 tablet by [facility] tablet 00:00: mouth (two) Medical times Branch daily. topiramate 2019-0 Yes 50mg Take 1 [facility] 50 mg 1-28 tablet by [facility] tablet 00:00: mouth (two) Medical times Branch daily. topiramate 2019-0 Yes 50mg Take 1 [facility] 50 mg 1-28 tablet by [facility] tablet 00:00: mouth 2 00 (two) Medical times Branch daily. topiramate 2019-0 Yes 50mg Take 1 [facility] 50 mg 1-28 tablet by [facility] tablet 00:00: mouth 2 00 (two) Medical times Branch daily. topiramate 2019-0 Yes 50mg Take 1 [facility] 50 mg 1-28 tablet by [facility] tablet 00:00: mouth 2 00 (two) Medical times Branch daily. topiramate 2019-0 Yes 50mg Take 1 [facility] 50 mg 1-28 tablet by [facility] tablet 00:00: mouth 2 00 (two) Medical times Branch daily. topiramate 2018-0 Yes 50mg Take 1 [facility] 50 mg 1-28 tablet by [facility] tablet 00:00: mouth 2 00 (two) Medical times Branch daily. topiramate 2018-0 Yes 50mg Take 1 [facility] 50 mg 1-28 tablet by [facility] tablet 00:00: mouth 2 00 (two) Medical times Branch daily. topiramate 2018-0 Yes 50mg Take 1 [facility] 50 mg 1-28 tablet by [facility] tablet 00:00: mouth 2 00 (two) Medical times Branch daily. topiramate 2018-0 Yes 50mg Take 1 [facility] 50 mg 1-28 tablet by [facility] tablet 00:00: mouth 2 00 (two) Medical times Branch daily. topiramate 2018-0 2020- No 50mg Take 1 [facility] 50 mg 1-28 10-20 tablet by [facility] tablet 00:00: 00:00 mouth 2 [place] 00 :00 (two) Medical times Branch daily. topiramate 2018-0 2020- No 50mg Take 1 [facility] 50 mg 1-28 10-20 tablet by [facility] of tablet 00:00: 00:00 mouth 2 [place] 00 :00 (two) Medical times Branch daily. topiramate 2019-0 2020- No 50mg Take 1 [facility] 50 mg 1-28 10-20 tablet by [facility] of tablet 00:00: 00:00 mouth 2 [place] 00 :00 (two) Medical times Branch daily. LISINOPRIL 2018- Yes [id number] TAKE ONE [facility] 10 mg 2-17 TABLET BY [facility] tablet 00:00: MOUTH ONCE [place] 00 DAILY Medical Branch LISINOPRIL 2018- 2019- No [id number] TAKE ONE [facility] 10 mg 2-17 08-07 TABLET BY [facility] tablet 00:00: 00:00 MOUTH [place]CE [place] 00 :00 DAILY [facility] Fenofibrate 2017-09 Yes [id number] 160mg Take 1 [facility] 160 mg 0-23 tablet by [facility] tablet 00:00: mouth [place] 00 daily. Medical Branch pioglitazon 2017- Yes [id number] 15mg Take 1 [facility] e 15 mg 0-23 tablet by [facility] of tablet 00:00: mouth [place] 00 daily. Medical Branch Fenofibrate 2017-09 Yes [id number] 160mg Take 1 [facility] 160 mg 0-23 tablet by [facility] of tablet 00:00: mouth [place] 00 daily. Medical Branch pioglitazon 2017-09 Yes [id number] 15mg Take 1 [facility] e 15 mg 0-23 tablet by [facility] of tablet 00:00: mouth [place] 00 daily. Medical Branch Fenofibrate 2017- Yes [id number] 160mg Take 1 [facility] 160 mg 0-23 tablet by [facility] of tablet 00:00: mouth [place] 00 daily. Medical Branch pioglitazon 2017-09 Yes [id number] 15mg Take 1 [facility] e 15 mg 0-23 tablet by [facility] of tablet 00:00: mouth [place] 00 daily. Medical Branch Fenofibrate 2017-09 Yes [id number] 160mg Take 1 [facility] 160 mg 0-23 tablet by [facility] of tablet 00:00: mouth [place] 00 daily. Medical Branch pioglitazon 2017-09 Yes [id number] 15mg Take 1 [facility] e 15 mg 0-23 tablet by [facility] of tablet 00:00: mouth [place] 00 daily. Medical Branch Fenofibrate 2017-09 Yes [id number] 160mg Take 1 [facility] 160 mg 0-23 tablet by [facility] of tablet 00:00: mouth [place] 00 daily. Medical Branch pioglitazon 2017-09 Yes [id number] 15mg Take 1 [facility] e 15 mg 0-23 tablet by [facility] of tablet 00:00: mouth [place] 00 daily. Medical Branch Fenofibrate 2017-09 Yes [id number] 160mg Take 1 [facility] 160 mg 0-23 tablet by [facility] of tablet 00:00: mouth [place] 00 daily. Medical Branch pioglitazon 2017-09 Yes [id number] 15mg Take 1 [facility] e 15 mg 0-23 tablet by [facility] of tablet 00:00: mouth [place] 00 daily. [facility] Fenofibrate 2017-09 Yes [id number] 160mg Take 1 [facility] 160 mg 0-23 tablet by ity of tablet 00:00: mouth [place] 00 daily. [facility] Branch pioglitazon 2017-09 Yes [id number] 15mg Take 1 [facility] e 15 mg 0-23 tablet by [facility]y of tablet 00:00: mouth [place] 00 daily. [facility] Branch Fenofibrate 2017-09 Yes [id number] 160mg Take 1 [facility] 160 mg 0-23 tablet by [facility]y of tablet 00:00: mouth [place] 00 daily. [facility] Branch pioglitazon 2017-09 Yes [id number] 15mg Take 1 [facility] e 15 mg 0-23 tablet by ity of tablet 00:00: mouth [place] 00 daily. [facility] Branch Fenofibrate 2017-09 Yes [id number] 160mg Take 1 [facility] 160 mg 0-23 tablet by [facility] of tablet 00:00: mouth [place] 00 daily. [facility] Branch pioglitazon 2017-09 Yes [id number] 15mg Take 1 [facility] e 15 mg 0-23 tablet by [facility]y of tablet 00:00: mouth [place] 00 daily. [facility] Branch Fenofibrate 2017-09 Yes [id number] 160mg Take 1 [facility] 160 mg 0-23 tablet by [facility] of tablet 00:00: mouth [place] 00 daily. [facility] Branch pioglitazon 2017-09 Yes [id number] 15mg Take 1 [facility] e 15 mg 0-23 tablet by ity of tablet 00:00: mouth [place] 00 daily. [facility] Branch Fenofibrate 2017-09 Yes [id number] 160mg Take 1 [facility] 160 mg 0-23 tablet by [facility]y of tablet 00:00: mouth [place] 00 daily. [facility] Branch pioglitazon 2017-09 Yes [id number] 15mg Take 1 [facility] e 15 mg 0-23 tablet by ity of tablet 00:00: mouth [place] 00 daily. [facility] Branch Fenofibrate 2017-09 Yes [id number] 160mg Take 1 [facility] 160 mg 0-23 tablet by [facility]y of tablet 00:00: mouth [place] 00 daily. [facility] Branch pioglitazon 2017-09 Yes [id number] 15mg Take 1 [facility] e 15 mg 0-23 tablet by ity of tablet 00:00: mouth [place] 00 daily. [facility] Branch Fenofibrate 2017-09 Yes [id number] 160mg Take 1 [facility] 160 mg 0-23 tablet by ity of tablet 00:00: mouth [place] 00 daily. Medical Branch pioglitazon 2017-09 Yes [id number] 15mg Take 1 [facility] e 15 mg 0-23 tablet by ity of tablet 00:00: mouth [place] 00 daily. [facility] Branch Fenofibrate 2017-09 Yes [id number] 160mg Take 1 [facility] 160 mg 0-23 tablet by ity of tablet 00:00: mouth [place] 00 daily. [facility] Branch pioglitazon 2017-09 Yes [id number] 15mg Take 1 [facility] e 15 mg 0-23 tablet by ity of tablet 00:00: mouth [place] 00 daily. [facility] Branch Fenofibrate 2017-09 Yes [id number] 160mg Take 1 [facility] 160 mg 0-23 tablet by [facility]y of tablet 00:00: mouth [place] 00 daily. [facility] Branch pioglitazon 2017-09 Yes [id number] 15mg Take 1 [facility] e 15 mg 0-23 tablet by ity of tablet 00:00: mouth [place] 00 daily. [facility] Branch Fenofibrate 2017-09 Yes [id number] 160mg Take 1 [facility] 160 mg 0-23 tablet by ity of tablet 00:00: mouth [place] 00 daily. [facility] Branch pioglitazon 2017-09 Yes [id number] 15mg Take 1 [facility] e 15 mg 0-23 tablet by ity of tablet 00:00: mouth [place] 00 daily. [facility] Branch Fenofibrate 2017-09 Yes [id number] 160mg Take 1 [facility] 160 mg 0-23 tablet by ity of tablet 00:00: mouth [place] 00 daily. [facility] Branch pioglitazon 2017-09 Yes [id number] 15mg Take 1 [facility] e 15 mg 0-23 tablet by ity of tablet 00:00: mouth [place] 00 daily. [facility] Branch Fenofibrate 2017-09 Yes [id number] 160mg Take 1 [facility] 160 mg 0-23 tablet by [facility]y of tablet 00:00: mouth [place] 00 daily. Medical Branch pioglitazon 2017-09 Yes [id number] 15mg Take 1 [facility] e 15 mg 0-23 tablet by ity of tablet 00:00: mouth [place] 00 daily. [facility] Fenofibrate 2017-09 2020- No [id number] 160mg Take 1 [facility] 160 mg 0-23 10-20 tablet by ity of tablet 00:00: 00:00 mouth [place] 00 :00 daily. [facility] Branch pioglitazon 2017-09 2020- No [id number] 15mg Take 1 [facility] e 15 mg 0-23 10-20 tablet by ity of tablet 00:00: 00:00 mouth [place] 00 :00 daily. Medical Branch Fenofibrate 2017-09 2020- No [id number] 160mg Take 1 [facility] 160 mg 0-23 10-20 tablet by [facility]y of tablet 00:00: 00:00 mouth [place] 00 :00 daily. [facility] Branch pioglitazon 2017-09 2020- No [id number] 15mg Take 1 [facility] e 15 mg 0-23 10-20 tablet by ity of tablet 00:00: 00:00 mouth [place] 00 :00 daily. Medical Branch Fenofibrate 2017-09 2020- No [id number] 160mg Take 1 [facility] 160 mg 0-23 10-20 tablet by [facility]y of tablet 00:00: 00:00 mouth [place] 00 :00 daily. [facility] 2017-09 2020- No [id number] 15mg Take 1 [facility] e 15 mg 0-23 10-20 tablet by [facility] of tablet 00:00: 00:00 mouth [place] 00 :00 daily. Medical Branch GLIPIZIDE 2017-09 Yes [id number] TAKE ONE [facility] 10 mg 0-15 TABLET BY [facility] of tablet 00:00: MOUTH [place] 00 TWICE Medical DAILY Branch BEFORE BREAKFAST AND DINNER GLIPIZIDE 2017-09 Yes [id number] TAKE ONE [facility] 10 mg 0-15 TABLET BY [facility] of tablet 00:00: MOUTH [place] 00 TWICE Medical DAILY Branch BEFORE BREAKFAST AND DINNER GLIPIZIDE 2017-09 Yes [id number] TAKE ONE [facility] 10 mg 0-15 TABLET BY [facility] of tablet 00:00: MOUTH [place] 00 TWICE Medical DAILY Branch BEFORE BREAKFAST AND DINNER GLIPIZIDE 2017-09 Yes [id number] TAKE ONE [facility] 10 mg 0-15 TABLET BY [facility] of tablet 00:00: MOUTH [place] 00 TWICE Medical DAILY Branch BEFORE BREAKFAST AND DINNER GLIPIZIDE 2017-09 Yes [id number] TAKE ONE [facility] 10 mg 0-15 TABLET BY [facility] of tablet 00:00: MOUTH [place] 00 TWICE Medical DAILY Branch BEFORE BREAKFAST AND DINNER GLIPIZIDE 2017-09 Yes [id number] TAKE ONE [facility] 10 mg 0-15 TABLET BY [facility] of tablet 00:00: MOUTH [place] 00 TWICE Medical DAILY Branch BEFORE BREAKFAST AND DINNER GLIPIZIDE 2017-09 Yes [id number] TAKE ONE [facility] 10 mg 0-15 TABLET BY ity of tablet 00:00: MOUTH [place] 00 TWICE Medical DAILY Branch BEFORE BREAKFAST AND DINNER GLIPIZIDE 2017-09 Yes [id number] TAKE ONE [facility] 10 mg 0-15 TABLET BY ity of tablet 00:00: MOUTH [place] 00 TWICE Medical DAILY Branch BEFORE BREAKFAST AND DINNER GLIPIZIDE 2017-09 Yes [id number] TAKE ONE [facility] 10 mg 0-15 TABLET BY ity of tablet 00:00: MOUTH [place] 00 TWICE Medical DAILY Branch BEFORE BREAKFAST AND DINNER GLIPIZIDE 2017-09 Yes [id number] TAKE ONE [facility] 10 mg 0-15 TABLET BY ity of tablet 00:00: MOUTH [place] 00 TWICE Medical DAILY Branch BEFORE BREAKFAST AND DINNER GLIPIZIDE 2017-09 Yes [id number] TAKE ONE [facility] 10 mg 0-15 TABLET BY ity of tablet 00:00: MOUTH [place] 00 TWICE Medical DAILY Branch BEFORE BREAKFAST AND DINNER GLIPIZIDE 2017-09 Yes [id number] TAKE ONE [facility] 10 mg 0-15 TABLET BY ity of tablet 00:00: MOUTH [place] 00 TWICE Medical DAILY Branch BEFORE BREAKFAST AND DINNER GLIPIZIDE 2017-09 Yes [id number] TAKE ONE [facility] 10 mg 0-15 TABLET BY ity of tablet 00:00: MOUTH [place] 00 TWICE Medical DAILY Branch BEFORE BREAKFAST AND DINNER GLIPIZIDE 2017-09 Yes [id number] TAKE ONE [facility] 10 mg 0-15 TABLET BY ity of tablet 00:00: MOUTH [place] 00 TWICE Medical DAILY Branch BEFORE BREAKFAST AND DINNER GLIPIZIDE 2017-09 Yes [id number] TAKE ONE [facility] 10 mg 0-15 TABLET BY ity of tablet 00:00: MOUTH [place] 00 TWICE Medical DAILY Branch BEFORE BREAKFAST AND DINNER GLIPIZIDE 2017-09 Yes [id number] TAKE ONE [facility] 10 mg 0-15 TABLET BY ity of tablet 00:00: MOUTH [place] 00 TWICE Medical DAILY Branch BEFORE BREAKFAST AND DINNER GLIPIZIDE 2017-09 Yes [id number] TAKE ONE [facility] 10 mg 0-15 TABLET BY ity of tablet 00:00: MOUTH [place] 00 TWICE Medical DAILY Branch BEFORE BREAKFAST AND DINNER GLIPIZIDE 2017-09 Yes [id number] TAKE ONE [facility] 10 mg 0-15 TABLET BY ity of tablet 00:00: MOUTH [place] 00 TWICE Medical DAILY Branch BEFORE BREAKFAST AND DINNER GLIPIZIDE 2017-09 2020- No [id number] TAKE ONE [facility] 10 mg 0-15 10-20 TABLET BY ity of tablet 00:00: 00:00 MOUTH [place] 00 :00 TWICE Medical DAILY Branch BEFORE BREAKFAST AND DINNER GLIPIZIDE 2017-09 2020- No [id number] TAKE ONE [facility] 10 mg 0-15 10-20 TABLET BY ity of tablet 00:00: 00:00 MOUTH [place] 00 :00 TWICE Medical DAILY Branch BEFORE BREAKFAST AND DINNER GLIPIZIDE 2017-09- No [id number] TAKE ONE [facility] 10 mg 0-15 10-20 TABLET BY ity of tablet 00:00: 00:00 MOUTH [place] 00 :00 TWICE Medical DAILY Branch BEFORE BREAKFAST AND DINNER [facility] Yes [id number] TAKE ONE [facility] N 20 mg 9-17 TABLET BY ity of tablet 00:00: MOUTH ONCE 00 DAILY AT [facility] [place] [facility] 0 Yes [id number] TAKE ONE [facility] N 20 mg 9-17 TABLET BY ity of tablet 00:00: MOUTH ONCE 00 DAILY AT [facility] [place] [facility] 0 Yes [id number] TAKE ONE [facility] N 20 mg 9-17 TABLET BY ity of tablet 00:00: MOUTH ONCE 00 DAILY AT [facility] [place] [facility] [address] Yes [id number] TAKE ONE [facility] N 20 mg 9-17 TABLET BY ity of tablet 00:00: MOUTH ONCE 00 DAILY AT [facility] [place] [facility] [address] Yes [id number] TAKE ONE [facility] N 20 mg 9-17 TABLET BY ity of tablet 00:00: MOUTH ONCE 00 DAILY AT [facility] [place] [facility] [address] Yes [id number] TAKE ONE [facility] N 20 mg 9-17 TABLET BY ity of tablet 00:00: MOUTH ONCE [place] 00 DAILY AT [facility] [place] [facility] [address] Yes [id number] TAKE ONE [facility] N 20 mg 9-17 TABLET BY ity of tablet 00:00: MOUTH ONCE [place] 00 DAILY AT [facility] [place] [facility] 2018-0 Yes [id number] TAKE ONE [facility] N 20 mg 9-17 TABLET BY ity of tablet 00:00: MOUTH ONCE [place] 00 DAILY AT [facility] [place] [facility] 2018-0 Yes [id number] TAKE ONE [facility] N 20 mg 9-17 TABLET BY ity of tablet 00:00: MOUTH ONCE [place] 00 DAILY AT [facility] [place] [facility] 2018-0 Yes [id number] TAKE ONE [facility] N 20 mg 9-17 TABLET BY ity of tablet 00:00: MOUTH ONCE DAILY AT [facility] [place] [facility] 2018-0 Yes [id number] TAKE ONE [facility] N 20 mg 9-17 TABLET BY ity of tablet 00:00: MOUTH ONCE DAILY AT [facility] [place] [facility] [address] Yes [id number] TAKE ONE [facility] N 20 mg 9-17 TABLET BY ity of tablet 00:00: MOUTH ONCE DAILY AT [facility] [place] [facility] [address] Yes [id number] TAKE ONE [facility] N 20 mg 9-17 TABLET BY ity of tablet 00:00: MOUTH ONCE DAILY AT [facility] [place] [facility] [address] Yes [id number] TAKE ONE [facility] N 20 mg 9-17 TABLET BY ity of tablet 00:00: MOUTH ONCE DAILY AT [facility] [place] [facility] [address] Yes [id number] TAKE ONE [facility] N 20 mg 9-17 TABLET BY ity of tablet 00:00: MOUTH ONCE DAILY AT [facility] [place] [facility] [address] Yes [id number] TAKE ONE [facility] N 20 mg 9-17 TABLET BY ity of tablet 00:00: MOUTH ONCE DAILY AT [facility] [place] [facility] [address] Yes [id number] TAKE ONE [facility] N 20 mg 9-17 TABLET BY ity of tablet 00:00: MOUTH ONCE DAILY AT [facility] [place] [facility] [address] Yes [id number] TAKE ONE [facility] N 20 mg 9-17 TABLET BY ity of tablet 00:00: MOUTH ONCE DAILY AT [facility] [place] [facility] 2018-0 2020- No [id number] TAKE ONE [facility] N 20 mg 9-17 10-20 TABLET BY ity of tablet 00:00: 00:00 [place] AT [facility] [place] [facility] 2018-0 2020- No [id number] TAKE ONE [facility] N 20 mg 9-17 10-20 TABLET BY ity of tablet 00:00: 00:00 [place] 00 :[place] AT [facility] [place] [facility] [address] 2020- No [id number] TAKE ONE [facility] N 20 mg 9-17 10-20 TABLET BY ity of tablet 00:00: 00:00 [place] 00 :[place] DAILY AT Medical BEDTIME Branch fluticasone 2017- Yes [id number] 2{spray Use 2 [facility] 50 4-18 } Sprays in ity of mcg/actuati 00:00: each [place] on nasal 00 nostril Medical spray daily. Branch fluticasone 2017- Yes [id number] 2{spray Use 2 [facility] 50 4-18 } Sprays in ity of mcg/actuati 00:00: each [place] on nasal 00 nostril Medical spray daily. Branch fluticasone 2017- Yes [id number] 2{spray Use 2 [facility] 50 4-18 } Sprays in ity of mcg/actuati 00:00: each [place] on nasal 00 nostril Medical spray daily. Branch fluticasone 2017- Yes [id number] 2{spray Use 2 [facility] 50 4-18 } Sprays in ity of mcg/actuati 00:00: each [place] on nasal 00 nostril Medical spray daily. Branch fluticasone Yes [id number] 2{spray Use 2 [facility] 50 4-18 } Sprays in ity of mcg/actuati 00:00: each [place] on nasal 00 nostril Medical spray daily. Branch fluticasone 2017- Yes [id number] 2{spray Use 2 [facility] 50 4-18 } Sprays in ity of mcg/actuati 00:00: each [place] on nasal 00 nostril Medical spray daily. Branch fluticasone 2017- Yes [id number] 2{spray Use 2 [facility] 50 4-18 } Sprays in ity of mcg/actuati 00:00: each [place] on nasal 00 nostril Medical spray daily. Branch fluticasone 2017- Yes [id number] 2{spray Use 2 [facility] 50 4-18 } Sprays in ity of mcg/actuati 00:00: each [place] on nasal 00 nostril Medical spray daily. Branch fluticasone 2017- Yes [id number] 2{spray Use 2 [facility] 50 4-18 } Sprays in ity of mcg/actuati 00:00: each [place] on nasal 00 nostril Medical spray daily. Branch fluticasone 2017- Yes [id number] 2{spray Use 2 [facility] 50 4-18 } Sprays in ity of mcg/actuati 00:00: each [place] on nasal 00 nostril Medical spray daily. Branch fluticasone 2018- Yes [id number] 2{spray Use 2 [facility] 50 4-18 } Sprays in ity of mcg/actuati 00:00: each [place] on nasal 00 nostril Medical spray daily. Branch fluticasone 2017- Yes [id number] 2{spray Use 2 [facility] 50 4-18 } Sprays in ity of mcg/actuati 00:00: each [place] on nasal 00 nostril Medical spray daily. Branch fluticasone 2017- Yes [id number] 2{spray Use 2 [facility] 50 4-18 } Sprays in ity of mcg/actuati 00:00: each [place] on nasal 00 nostril Medical spray daily. Branch fluticasone 2017- Yes [id number] 2{spray Use 2 [facility] 50 4-18 } Sprays in ity of mcg/actuati 00:00: each [place] on nasal 00 nostril Medical spray daily. Branch fluticasone 2017- Yes [id number] 2{spray Use 2 [facility] 50 4-18 } Sprays in ity of mcg/actuati 00:00: each [place] on nasal 00 nostril Medical spray daily. Branch fluticasone 2017- Yes [id number] 2{spray Use 2 [facility] 50 4-18 } Sprays in ity of mcg/actuati 00:00: each [place] on nasal 00 nostril Medical spray daily. Branch fluticasone 2017- Yes [id number] 2{spray Use 2 [facility] 50 4-18 } Sprays in ity of mcg/actuati 00:00: each [place] on nasal 00 nostril Medical spray daily. Branch fluticasone 2018- Yes [id number] 2{spray Use 2 [facility] 50 4-18 } Sprays in ity of mcg/actuati 00:00: each [place] on nasal 00 nostril Medical spray daily. Branch fluticasone 2017-2019- No [id number] 2{spray Use 2 [facility] 50 4-18 10-20 } Sprays in ity of mcg/actuati 00:00: 00:00 each [place] on nasal 00 :00 nostril Medical spray daily. Branch fluticasone 2019- No [id number] 2{spray Use 2 [facility] 50 4-18 10-20 } Sprays in ity of mcg/actuati 00:00: 00:00 each [place] on nasal 00 :00 nostril Medical spray daily. Analy fluticasone 2019- No [id number] 2{spray Use 2 [facility] 50 4-18 10-20 } Sprays in ity of mcg/actuati 00:00: 00:00 each [place] on nasal 00 :00 nostril Medical spray daily. Analy acetaminoph acetaminoph No acetaminop [place] en 300 en 300 hen 300 Family mg-codeine mg-codeine mg-codeine [facility] 30 mg 30 mg 30 mg e tablet TAKE tablet TAKE tablet 1 TABLET BY 1 TABLET BY TAKE 1 MOUTH EVERY MOUTH EVERY TABLET BY 6 HOURS 6 HOURS MOUTH NEEDED FOR NEEDED FOR EVERY 6 MODERATE TO MODERATE TO HOURS SEVERE PAIN SEVERE PAIN NEEDED FOR FOR 7 DAYS FOR 7 DAYS MODERATE TO SEVERE PAIN FOR 7 DAYS famotidine famotidine No famotidine [facility] 20 mg 20 mg 20 mg Family tablet TAKE tablet TAKE tablet Pract[facility] 1 TABLET BY 1 TABLET BY TAKE 1 e MOUTH EVERY MOUTH EVERY TABLET BY NIGHT AT NIGHT AT MOUTH BEDTIME BEDTIME EVERY NIGHT AT BEDTIME meloxicam meloxicam No meloxicam [facility] 15 mg 15 mg 15 mg Family tablet TAKE tablet TAKE tablet [facility] 1 TABLET BY 1 TABLET BY TAKE 1 e MOUTH ONCE MOUTH ONCE TABLET BY DAILY DAILY MOUTH ONCE NEEDED FOR NEEDED FOR DAILY PAIN FOR 30 PAIN FOR 30 NEEDED FOR DAYS DAYS PAIN FOR 30 DAYS metformin metformin No metformin [facility] 1,000 mg 1,000 mg 1,000 mg Fam danny tablet TAKE tablet TAKE tablet Practic 1 TABLET BY 1 TABLET BY TAKE 1 e MOUTH TWICE MOUTH TWICE TABLET BY DAILY DAILY MOUTH TWICE DAILY metoclopram metoclopram No metoclopra [place] ian 10 mg ian 10 mg mide 10 mg Family tablet TAKE tablet TAKE tablet [facility] 3 TABLETS 3 TABLETS TAKE 3 e BY MOUTH BY MOUTH TABLETS BY DIRECTED DIRECTED MOUTH PER PER DIRECTED COLONOSCOPY COLONOSCOPY PER PACKET PACKET COLONOSCOP Y PACKET metronidazo metronidazo No metronidaz [place] le 500 mg le 500 mg ole 500 mg Family tablet TAKE tablet TAKE tablet [facility] 1 TABLET BY 1 TABLET BY TAKE 1 e MOUTH TWICE MOUTH TWICE TABLET BY DAILY FOR 7 DAILY FOR 7 MOUTH DAYS DAYS TWICE DAILY FOR 7 DAYS naproxen naproxen No naproxen [place] [facility] 500 mg 500 mg 500 mg Family tablet TAKE tablet TAKE tablet [facility] 1 TABLET BY 1 TABLET BY TAKE 1 e MOUTH EVERY MOUTH EVERY TABLET BY 12 HOURS 12 HOURS MOUTH WITH FOOD WITH FOOD EVERY 12 OR MILK OR MILK HOURS WITH NEEDED FOR NEEDED FOR FOOD OR PAIN PAIN MILK NEEDED FOR PAIN nitrofurant nitrofurant No nitrofuran [place] oin oin toin Family monohydrate monohydrate monohydrat Practic /macrocryst /macrocryst e/macrocry e als 100 mg als 100 mg stals 100 capsule capsule mg capsule TAKE 1 TAKE 1 TAKE 1 CAPSULE BY CAPSULE BY CAPSULE BY MOUTH TWICE MOUTH TWICE MOUTH DAILY FOR 7 DAILY FOR 7 TWICE DAYS DAYS DAILY FOR 7 DAYS nortriptyli nortriptyli No nortriptyl [facility] ne 10 mg ne 10 mg ine 10 mg Fa merlin capsule capsule capsule Practi c TAKE 2 TAKE 2 TAKE 2 e CAPSULES BY CAPSULES BY CAPSULES MOUTH AT MOUTH AT BY MOUTH BEDTIME BEDTIME AT BEDTIME INCREASE TO INCREASE TO INCREASE 3 CAPSULES 3 CAPSULES TO 3 IN A WEEK IN A WEEK CAPSULES IF NOT IF NOT IN A WEEK IMPROVED IMPROVED IF NOT THEN THEN IMPROVED INCREASE TO INCREASE TO THEN 4 CAPSULES 4 CAPSULES INCREASE IN 3 WEEKS IN 3 WEEKS TO 4 IF NOT IF NOT CAPSULES IMPROVED. IMPROVED. IN 3 WEEKS IF NOT IMPROVED. [place] 3 [place] 3 No [place] 3 [facility] omeprazole omeprazole No omeprazole [facility] 20 mg 20 mg 20 mg Family capsule,del capsule,del capsule,de Practic ayed ayed layed e release release release TAKE 1 TAKE 1 TAKE 1 CAPSULE BY CAPSULE BY CAPSULE BY MOUTH EVERY MOUTH EVERY MOUTH MORNING IN MORNING IN EVERY THE MORNING THE MORNING MORNING IN THE MORNING rosuvastati rosuvastati No 1 Q1D rosuvastat [facility] n 10 mg n 10 mg in 10 mg Famil y tablet Take tablet Take tablet Practic 1 tablet 1 tablet Take 1 e every day every day tablet by oral by oral every day route in route in by oral the evening the evening route in for 90 for 90 the days. days. evening for 90 days. Rybelsus 7 Rybelsus 7 No Rybelsus 7 [place] mg tablet mg tablet mg tablet Family TAKE 1 TAKE 1 TAKE 1 Practic TABLET BY TABLET BY TABLET BY e MOUTH EVERY MOUTH EVERY MOUTH DAY DAY EVERY DAY Suprep Suprep No Suprep [place] Bowel Prep Bowel Prep Bowel Prep Family Kit 17.5 Kit 17.5 Kit 17.5 Pra ctic gram-3.13 gram-3.13 gram-3.13 e gram-1.6 gram-1.6 gram-1.6 gram oral gram oral gram oral solution solution solution USE USE USE DIRECTED DIRECTED DIRECTED PER PER PER COLONOSCOPY COLONOSCOPY COLONOSCOP PACKET PACKET Y PACKET tizanidine tizanidine No tizanidine [place] 4 mg tablet 4 mg tablet 4 mg F amily TAKE 1 TAKE 1 tablet Practic TABLET BY TABLET BY TAKE 1 e MOUTH MOUTH TABLET BY NEEDED AT NEEDED AT MOUTH BEDTIME FOR BEDTIME FOR NEEDED AT MUSCLE MUSCLE BEDTIME SPASM FOR SPASM FOR FOR MUSCLE 30 DAYS 30 DAYS SPASM FOR 30 DAYS Trijardy XR Trijardy XR No 2 Q1D Trijardy [facility] 12.5 mg-2.5 12.5 mg-2.5 XR 12.5 Family mg-1,000 mg mg-1,000 mg mg-2.5 Practic tablet, tablet, mg-1,000 e extended extended mg tablet, release release extended Take 2 Take 2 release tablets tablets Take 2 every day every day tablets by oral by oral every day route in route in by oral the morning the morning route in for 90 for 90 the days. days. morning for 90 days. Vitamin D3 Vitamin D3 No Vitamin D3 [facility] Family Practic e Immunizations Ordered Filled Immunization Date Status Comments [facility] e Immunization Name Name SARS-COV-2 SARS-COV-2 2021-01-09 Completed [place] (COVID-19) vaccine, (COVID-19) vaccine, 00:00:00 Practice UNSPECIFIED UNSPECIFIED SARS-COV-2 COVID-19 2021-01-09 Completed Unive rsity of PFIZER VACCINE 00:00:00 [facility] SARS-COV-2 COVID-19 2021-01-09 Completed Unive rsity of PFIZER VACCINE 00:00:00 [facility] SARS-COV-2 COVID-19 2021-01-09 Completed Unive rsity of PFIZER VACCINE 00:00:00 [facility] SARS-COV-2 COVID-19 2021-01-09 Completed Unive rsity of PFIZER VACCINE 00:00:00 [facility] SARS-COV-2 SARS-COV-2 2020-12-20 Completed [place] (COVID-19) vaccine, (COVID-19) vaccine, 00:00:00 Practice UNSPECIFIED UNSPECIFIED SARS-COV-2 COVID-19 2020-12-20 Completed Unive rsity of PFIZER VACCINE 00:00:00 [facility] SARS-COV-2 COVID-19 2020-12-20 Completed Unive rsity of PFIZER VACCINE 00:00:00 [facility] SARS-COV-2 COVID-19 2020-12-20 Completed Unive rsity of PFIZER VACCINE 00:00:00 [facility] SARS-COV-2 COVID-19 2020-12-20 Completed Unive rsity of PFIZER VACCINE 00:00:00 [facility] Influenza Virus 2020-06-21 Completed Universit y of Vaccine Quad .5 mL 00:00:00 [place] [facility] IM 6+ MO Branch Influenza Virus 2020-06-21 Completed Universit y of Vaccine Quad .5 mL 00:00:00 [place] [facility] IM 6+ MO Branch Influenza Virus 2020-06-21 Completed Universit y of Vaccine Quad .5 mL 00:00:00 [place] [facility] IM 6+ MO Branch Influenza Virus 2020-06-21 Completed Universit y of Vaccine Quad .5 mL 00:00:00 [place] [facility] IM 6+ MO Branch Influenza Virus 2020-06-21 Completed Universit y of Vaccine [place] .5 mL 00:00:00 [place] [facility] IM 6+ MO Branch Influenza Virus 2020-06-21 Completed Universit y of Vaccine Quad .5 mL 00:00:00 [place] [facility] IM 6+ MO Branch Influenza Virus 2020-06-21 Completed Universit y of Vaccine [place] .5 mL 00:00:00 [place] [facility] IM 6+ MO Branch Influenza Virus 2020-06-21 Completed Universit y of Vaccine [place] .5 mL 00:00:00 [place] [facility] IM 6+ MO Branch Influenza Virus 2020-06-21 Completed Universit y of Vaccine Quad .5 mL 00:00:00 [place] [facility] IM 6+ MO Branch Influenza Virus 2020-06-21 Completed Universit y of Vaccine [place] .5 mL 00:00:00 [place] [facility] IM 6+ MO Branch Influenza Virus 2020-06-21 Completed Universit y of Vaccine Quad .5 mL 00:00:00 [place] [facility] IM 6+ MO Branch Influenza Virus 2020-06-21 Completed Universit y of Vaccine Quad .5 mL 00:00:00 [place] [facility] IM 6+ MO Branch Influenza Virus 2020-06-21 Completed Universit y of Vaccine [place] .5 mL 00:00:00 [place] [facility] IM 6+ MO Branch Influenza Virus 2020-06-21 Completed Universit y of Vaccine [place] .5 mL 00:00:00 [place] [facility] IM 6+ MO Branch Influenza Virus 2020-06-21 Completed Universit y of Vaccine [place] .5 mL 00:00:00 [place] [facility] IM 6+ MO Branch Influenza Virus 2020-06-21 Completed Universit y of Vaccine [place] .5 mL 00:00:00 [place] [facility] IM 6+ MO Branch Influenza Virus 2020-06-21 Completed Universit y of Vaccine [place] .5 mL 00:00:00 [place] [facility] IM 6+ MO Branch Influenza Virus 2020-06-21 Completed Universit y of Vaccine [place] .5 mL 00:00:00 [place] [facility] IM 6+ MO Branch Influenza Virus 2020-06-21 Completed Universit y of Vaccine [place] .5 mL 00:00:00 [place] [facility] IM 6+ MO Branch Influenza Virus 2020-06-21 Completed Universit y of Vaccine [place] .5 mL 00:00:00 [place] [facility] IM 6+ MO Branch Influenza Virus 2020-06-21 Completed Universit y of Vaccine [place] .5 mL 00:00:00 [place] [facility] IM 6+ MO Branch Influenza Virus 2020-06-21 Completed Universit y of Vaccine Quad .5 mL 00:00:00 [place] [facility] IM 6+ MO Branch Influenza Virus 2020-06-21 Completed Universit y of Vaccine [place] .5 mL 00:00:00 [place] [facility] IM 6+ MO Branch Influenza Virus 2020-06-21 Completed Universit y of Vaccine Quad .5 mL 00:00:00 [place] [facility] IM 6+ MO Branch Influenza Virus 2020-06-21 Completed Universit y of Vaccine Quad .5 mL 00:00:00 [place] [facility] IM 6+ MO Branch Influenza Virus 2020-06-21 Completed Universit y of Vaccine Quad .5 mL 00:00:00 [place] [facility] IM 6+ MO Branch Influenza Virus 2020-06-21 Completed Universit y of Vaccine Quad .5 mL 00:00:00 [place] [facility] IM 6+ MO Branch Influenza Virus 2020-06-21 Completed Universit y of Vaccine Quad .5 mL 00:00:00 [place] [facility] IM 6+ MO Branch Influenza Virus 2020-06-21 Completed Universit y of Vaccine Quad .5 mL 00:00:00 [place] [facility] 6+ MO Branch influenza, influenza, 2020-06-02 Completed [facility] Family injectable, injectable, 00:00:00 Practice quadrivalent quadrivalent TDAP (ADACEL) 2018-12-25 Completed University of VACCINE 00:00:00 [facility] Pneumococcal 2018-12-25 Completed University o f Polysaccharide, 00:00:00 [place] [facility] ical PPSV23 (PNEUMOVAX) Branch TDAP (ADACEL) 2018-12-25 Completed University of VACCINE 00:00:00 [facility] TDAP (ADACEL) 2018-12-25 Completed University of VACCINE 00:00:00 [facility] Pneumococcal 2018-12-25 Completed University o f Polysaccharide, 00:00:00 [place] [facility] ical PPSV23 (PNEUMOVAX) Branch TDAP (ADACEL) 2018-12-25 Completed University of VACCINE 00:00:00 [facility] Pneumococcal 2018-12-25 Completed University o f Polysaccharide, 00:00:00 [place] [facility] ical PPSV23 (PNEUMOVAX) Branch TDAP (ADACEL) 2018-12-25 Completed University of VACCINE 00:00:00 [facility] Pneumococcal 2018-12-25 Completed University o f Polysaccharide, 00:00:00 [place] [facility] ical PPSV23 (PNEUMOVAX) Branch TDAP (ADACEL) 2018-12-25 Completed University of VACCINE 00:00:00 [facility] Pneumococcal 2018-12-25 Completed University o f Polysaccharide, 00:00:00 [place] [facility] ical PPSV23 (PNEUMOVAX) Branch TDAP (ADACEL) 2018-12-25 Completed University of VACCINE 00:00:00 [facility] Pneumococcal 2018-12-25 Completed University o f Polysaccharide, 00:00:00 [place] [facility] ical PPSV23 (PNEUMOVAX) Branch TDAP (ADACEL) 2018-12-25 Completed University of VACCINE 00:00:00 [facility] Pneumococcal 2018-12-25 Completed University o f Polysaccharide, 00:00:00 [place] [facility] ical PPSV23 (PNEUMOVAX) Branch TDAP (ADACEL) 2018-12-25 Completed University of VACCINE 00:00:00 [facility] Pneumococcal 2018-12-25 Completed University o f Polysaccharide, 00:00:00 [place] [facility] ical PPSV23 (PNEUMOVAX) Branch TDAP (ADACEL) 2018-12-25 Completed University of VACCINE 00:00:00 [facility] Pneumococcal 2018-12-25 Completed University o f Polysaccharide, 00:00:00 [place] [facility] ical PPSV23 (PNEUMOVAX) Branch TDAP (ADACEL) 2018-12-25 Completed University of VACCINE 00:00:00 [facility] Pneumococcal 2018-12-25 Completed University o f Polysaccharide, 00:00:00 [place] [facility] ical PPSV23 (PNEUMOVAX) Branch TDAP (ADACEL) 2018-12-25 Completed University of VACCINE 00:00:00 [facility] Pneumococcal 2018-12-25 Completed University o f Polysaccharide, 00:00:00 [place] [facility] ical PPSV23 (PNEUMOVAX) Branch TDAP (ADACEL) 2018-12-25 Completed University of VACCINE 00:00:00 [facility] Pneumococcal 2018-12-25 Completed University o f Polysaccharide, 00:00:00 [place] [facility] ical PPSV23 (PNEUMOVAX) Branch TDAP (ADACEL) 2018-12-25 Completed University of VACCINE 00:00:00 [facility] Pneumococcal 2018-12-25 Completed University o f Polysaccharide, 00:00:00 [place] [facility] ical PPSV23 (PNEUMOVAX) Branch TDAP (ADACEL) 2018-12-25 Completed University of VACCINE 00:00:00 [facility] Pneumococcal 2018-12-25 Completed University o f Polysaccharide, 00:00:00 [place] [facility] ical PPSV23 (PNEUMOVAX) Branch TDAP (ADACEL) 2018-12-25 Completed University of VACCINE 00:00:00 [facility] Pneumococcal 2018-12-25 Completed University o f Polysaccharide, 00:00:00 [place] [facility] ical PPSV23 (PNEUMOVAX) Branch Pneumococcal 2018-12-25 Completed University o f Polysaccharide, 00:00:00 [place] [facility] ical PPSV23 (PNEUMOVAX) Branch TDAP (ADACEL) 2018-12-25 Completed University of VACCINE 00:00:00 [facility] Pneumococcal 2018-12-25 Completed University o f Polysaccharide, 00:00:00 [place] [facility] ical PPSV23 (PNEUMOVAX) Branch TDAP (ADACEL) 2018-12-25 Completed University of VACCINE 00:00:00 [facility] TDAP (ADACEL) 2018-12-25 Completed University of VACCINE 00:00:00 [facility] Pneumococcal 2018-12-25 Completed University o f Polysaccharide, 00:00:00 [place] [facility] ical PPSV23 (PNEUMOVAX) Branch TDAP (ADACEL) 2018-12-25 Completed University of VACCINE 00:00:00 [facility] Pneumococcal 2018-12-25 Completed University o f Polysaccharide, 00:00:00 [place] [facility] ical PPSV23 (PNEUMOVAX) Branch TDAP (ADACEL) 2018-12-25 Completed University of VACCINE 00:00:00 [facility] Pneumococcal 2018-12-25 Completed University o f Polysaccharide, 00:00:00 [place] [facility] ical PPSV23 (PNEUMOVAX) Branch TDAP (ADACEL) 2018-12-25 Completed University of VACCINE 00:00:00 [facility] Pneumococcal 2018-12-25 Completed University o f Polysaccharide, 00:00:00 [place] [facility] ical PPSV23 (PNEUMOVAX) Branch TDAP (ADACEL) 2018-12-25 Completed University of VACCINE 00:00:00 [facility] Pneumococcal 2018-12-25 Completed University o f Polysaccharide, 00:00:00 [place] [facility] PPSV23 (PNEUMOVAX) Branch TDAP (ADACEL) 2018-12-25 Completed University of VACCINE 00:00:00 [facility] Pneumococcal 2018-12-25 Completed University o f Polysaccharide, 00:00:00 [place] [facility] PPSV23 (PNEUMOVAX) Branch TDAP (ADACEL) 2018-12-25 Completed University of VACCINE 00:00:00 [facility] Pneumococcal 2018-12-25 Completed University o f Polysaccharide, 00:00:00 [place] [facility] PPSV23 (PNEUMOVAX) Branch TDAP (ADACEL) 2018-12-25 Completed University of VACCINE 00:00:00 [facility] Pneumococcal 2018-12-25 Completed University o f Polysaccharide, 00:00:00 [place] [facility] PPSV23 (PNEUMOVAX) Branch TDAP (ADACEL) 2018-12-25 Completed University of VACCINE 00:00:00 [facility] Pneumococcal 2018-12-25 Completed University o f Polysaccharide, 00:00:00 [place] [facility] PPSV23 (PNEUMOVAX) Branch TDAP (ADACEL) 2018-12-25 Completed University of VACCINE 00:00:00 [facility] Pneumococcal 2018-12-25 Completed University o f Polysaccharide, 00:00:00 [place] [facility] PPSV23 (PNEUMOVAX) Branch TDAP (ADACEL) 2018-12-25 Completed University of VACCINE 00:00:00 [facility] Pneumococcal 2018-12-25 Completed University o f Polysaccharide, 00:00:00 [place] [facility] PPSV23 (PNEUMOVAX) Branch TDAP (ADACEL) 2018-12-25 Completed University of VACCINE 00:00:00 [facility] Pneumococcal 2018-12-25 Completed University o f Polysaccharide, 00:00:00 [place] [facility] PPSV23 (PNEUMOVAX) Branch TDAP (ADACEL) 2018-12-25 Completed University of VACCINE 00:00:00 [facility] Pneumococcal 2018-12-25 Completed University o f Polysaccharide, 00:00:00 [place] [facility] PPSV23 (PNEUMOVAX) Branch TDAP (ADACEL) 2018-12-25 Completed University of VACCINE 00:00:00 [facility] Pneumococcal 2018-12-25 Completed University o f Polysaccharide, 00:00:00 [place] [facility] PPSV23 (PNEUMOVAX) Branch TDAP (ADACEL) 2018-12-25 Completed University of VACCINE 00:00:00 [facility] Pneumococcal 2018-12-25 Completed University o f Polysaccharide, 00:00:00 [place] [facility] PPSV23 (PNEUMOVAX) Branch TDAP (ADACEL) 2018-12-25 Completed University of VACCINE 00:00:00 [facility] Pneumococcal 2018-12-25 Completed University o f Polysaccharide, 00:00:00 [place] [facility] PPSV23 (PNEUMOVAX) Branch TDAP (ADACEL) 2018-12-25 Completed University of VACCINE 00:00:00 [facility] Pneumococcal 2018-12-25 Completed University o f Polysaccharide, 00:00:00 [facility] ical PPSV23 (PNEUMOVAX) Branch TDAP (ADACEL) 2018-12-25 Completed University of VACCINE 00:00:00 [facility] Pneumococcal 2018-12-25 Completed University o f Polysaccharide, 00:00:00 [place] [facility] PPSV23 (PNEUMOVAX) Branch TDAP (ADACEL) 2018-12-25 Completed University of VACCINE 00:00:00 [facility] Pneumococcal 2018-12-25 Completed University o f Polysaccharide, 00:00:00 [place] [facility] PPSV23 (PNEUMOVAX) Branch TDAP (ADACEL) 2018-12-25 Completed University of VACCINE 00:00:00 [facility] Pneumococcal 2018-12-25 Completed University o f Polysaccharide, 00:00:00 [place] [facility] PPSV23 (PNEUMOVAX) Branch TDAP (ADACEL) 2018-12-25 Completed University of VACCINE 00:00:00 [facility] Pneumococcal 2018-12-25 Completed University o f Polysaccharide, 00:00:00 [place] [facility] PPSV23 (PNEUMOVAX) Branch TDAP (ADACEL) 2018-12-25 Completed University of VACCINE 00:00:00 [facility] Pneumococcal 2018-12-25 Completed University o f Polysaccharide, 00:00:00 [place] [facility] PPSV23 (PNEUMOVAX) Branch TDAP (ADACEL) 2018-12-25 Completed University of VACCINE 00:00:00 [facility] Pneumococcal 2018-12-25 Completed University o f Polysaccharide, 00:00:00 [place] [facility] PPSV23 (PNEUMOVAX) Branch TDAP (ADACEL) 2018-12-25 Completed University of VACCINE 00:00:00 [facility] Pneumococcal 2018-12-25 Completed University o f Polysaccharide, 00:00:00 [place] [facility] PPSV23 (PNEUMOVAX) Branch TDAP (ADACEL) 2018-12-25 Completed University of VACCINE 00:00:00 [facility] Pneumococcal 2018-12-25 Completed University o f Polysaccharide, 00:00:00 [place] [facility] PPSV23 (PNEUMOVAX) Branch TDAP (ADACEL) 2018-12-25 Completed University of VACCINE 00:00:00 [facility] Pneumococcal 2018-12-25 Completed University o f Polysaccharide, 00:00:00 [place] [facility] PPSV23 (PNEUMOVAX) Branch TDAP (ADACEL) 2018-12-25 Completed University of VACCINE 00:00:00 [facility] Pneumococcal 2018-12-25 Completed University o f Polysaccharide, 00:00:00 [place] [facility] PPSV23 (PNEUMOVAX) Branch TDAP (ADACEL) 2018-12-25 Completed University of VACCINE 00:00:00 [facility] Pneumococcal 2018-12-25 Completed University o f Polysaccharide, 00:00:00 [place] [facility] PPSV23 (PNEUMOVAX) Branch TDAP (ADACEL) 2018-12-25 Completed University of VACCINE 00:00:00 [facility] Pneumococcal 2018-12-25 Completed University o f Polysaccharide, 00:00:00 [place] [facility] PPSV23 (PNEUMOVAX) Branch TDAP (ADACEL) 2018-12-25 Completed University of VACCINE 00:00:00 [facility] Pneumococcal 2018-12-25 Completed University o f Polysaccharide, 00:00:00 [place] [facility] PPSV23 (PNEUMOVAX) Branch Pneumococcal 2018-12-25 Completed University o f Polysaccharide, 00:00:00 [place] [facility] PPSV23 (PNEUMOVAX) Branch Vital Signs Vital Name Observation Time Observation Value Comments Source BP Diastolic 2021-05-11 00:00:00 74 mm[Hg] [facility] Height 2021-05-11 00:00:00 63 [in_i] [facility] BMI (Body Mass 2021-05-11 00:00:00 25.9 kg/m2 [facility] BP Systolic 2021-05-11 00:00:00 124 mm[Hg] [facility] Body Weight 2021-05-11 00:00:00 146 [lb_av] [facility] BP Diastolic 2021-02-13 00:00:00 75 mm[Hg] [facility] Height 2021-02-13 00:00:00 63 [in_i] [facility] BMI (Body Mass 2021-02-13 00:00:00 27.8 kg/m2 [facility] BP Systolic 2021-02-13 00:00:00 113 mm[Hg] [facility] Body Weight 2021-02-13 00:00:00 157 [lb_av] [facility] BP Diastolic 2020-10-06 00:00:00 85 mm[Hg] [facility] Height 2020-10-06 00:00:00 63 [in_i] [facility] BMI (Body Mass 2020-10-06 00:00:00 27.1 kg/m2 [facility] BP Systolic 2020-10-06 00:00:00 119 mm[Hg] [facility] Body Weight 2020-10-06 00:00:00 153 [lb_av] [facility] Systolic blood 2020-09-16 17:00:00 162 mm[Hg] Univer sity of pressure [facility] Diastolic blood 2020-09-16 17:00:00 89 mm[Hg] Unive rsity of pressure [facility] Heart rate 2020-09-16 17:00:00 100 /min Universi [facility] Body temperature 2020-09-16 17:00:00 36.5 Radha Univ ersity [facility] Respiratory rate 2020-09-16 17:00:00 16 /min Univ ersity of [place] [facility] Body weight 2020-09-16 17:00:00 68.04 kg Universi ty [facility] [place] [facility] BMI 2020-09-16 17:00:00 26.57 kg/m2 Universi ty of [facility] Oxygen saturation in 2020-09-16 17:00:00 100 /min University Arterial blood by [facility] Pulse oximetry Branch Systolic blood 2020-07-20 14:15:00 126 mm[Hg] Univer sity of pressure [facility] Diastolic blood 2020-07-20 14:15:00 81 mm[Hg] Unive rsity of [facility] Heart rate 2020-07-20 14:15:00 89 /min Universi ty of [facility] Body height 2020-07-20 14:15:00 160 cm Universi ty of [facility] Body weight 2020-07-20 14:15:00 69.854 kg Universi ty [facility] BMI 2020-07-20 14:15:00 27.28 kg/m2 Universi ty [facility] BP Diastolic 2020-07-05 00:00:00 82 mm[Hg] [facility] Height 2020-07-05 00:00:00 63 [in_i] [facility] BMI (Body Mass 2020-07-05 00:00:00 28.3 kg/m2 [facility] BP Systolic 2020-07-05 00:00:00 138 mm[Hg] [facility] Body Weight 2020-07-05 00:00:00 159.6 [lb_av] [facility] Systolic blood 2020-06-28 20:25:00 148 mm[Hg] Univer sity of [facility] Diastolic blood 2020-06-28 20:25:00 85 mm[Hg] Unive rsity of [facility] Heart rate 2020-06-28 20:24:00 81 /min Universi ty of [facility] Respiratory rate 2020-06-28 20:24:00 19 /min Univ ersity of [facility] Body height 2020-06-28 20:24:00 160 cm Universi ty of [facility] Body weight 2020-06-28 20:24:00 71.895 kg Universi ty of [facility] BMI 2020-06-28 20:24:00 28.08 kg/m2 Universi ty [facility] [place] [facility] Oxygen saturation in 2020-06-28 20:24:00 99 /min University of Arterial blood by [facility] Pulse oximetry Branch Systolic blood 2020-06-21 14:01:00 118 mm[Hg] Univer sity of pressure [facility] [place] [facility] Diastolic blood 2020-06-21 14:01:00 76 mm[Hg] Unive rsity of pressure [facility] Heart rate 2020-06-21 14:01:00 95 /min Universi ty [facility] [place] [facility] Body temperature 2020-06-21 14:01:00 36.33 Radha Univ ersity of [place] [facility] Body height 2020-06-21 14:01:00 160 cm [facility]i ty [facility] [place] [facility] Body weight 2020-06-21 14:01:00 69.854 kg [facility]i [facility] [place] [facility] BMI 2020-06-21 14:01:00 27.28 kg/m2 [facility]i [facility] [place] [facility] Systolic blood 2020-02-03 18:05:00 141 mm[Hg] Univer sity of pressure [facility] [place] [facility] Diastolic blood 2020-02-03 18:05:00 87 mm[Hg] Unive rsity of pressure [facility] Heart rate 2020-02-03 18:05:00 86 /min Universi ty [facility] [place] [facility] Body temperature 2020-02-03 18:05:00 37.17 Radha Univ ersity [facility] [place] [facility] Body height 2020-02-03 18:05:00 160 cm [facility]i ty [facility] [place] [facility] Body weight 2020-02-03 18:05:00 70.308 kg [facility]i ty [facility] [place] [facility] BMI 2020-02-03 18:05:00 27.46 kg/m2 [facility] [place] [facility] Oxygen saturation in 2020-02-03 18:05:00 98 /min University of Arterial blood by [facility] Pulse oximetry Branch Systolic blood 2019-12-07 15:26:00 135 mm[Hg] Univer sity of pressure [facility] [place] [facility] Diastolic blood 2019-12-07 15:26:00 79 mm[Hg] Unive rsity of pressure [facility] Heart rate 2019-12-07 15:26:00 91 /min [facility]i ty [facility] [place] [facility] Body temperature 2019-12-07 15:26:00 36.83 Radha Univ ersity of [facility] Respiratory rate 2019-12-07 15:26:00 17 /min [facility] Body height 2019-12-07 15:26:00 160 cm [facility] Body weight 2019-12-07 15:26:00 67.132 kg [facility] BMI 2019-12-07 15:26:00 26.22 kg/m2 [facility] Oxygen saturation in 2019-12-07 15:26:00 98 /min [facility] Arterial blood by [facility] Pulse oximetry Branch Procedures Procedure Date / Time Performing Clinician Source Performed MEDICAL RELEASE/CLEARANCE 2021-03-29 05:01:00 Doctor Slade, [facility] FORMS [place] [facility] EXTERNAL PROVIDER RECORDS 2021-03-17 05:01:00 Doctor June [facility] [place] [facility] REFERRAL- REQUEST/RESPONSE 2021-02-13 05:01:00 Doctor June , [facility] [place] [facility] EXTERNAL PROVIDER RECORDS 2020-10-28 06:01:00 Doctor Ganntobias, [facility] [place] [facility] AUTHORIZATION FOR RELEASE 2020-10-07 06:01:00 Doctor Slade, [facility] OF [facility] [place] [facility] NOTICE OF PRIVACY 2020-09-16 16:50:32 Doctor Slade, [facility] [place] [facility] CONSENT/REFUSAL FOR 2020-09-16 16:50:23 Doctor Slade, [facility] DIAGNOSIS AND TREATMENT [place] [facility] MEDICAL RELEASE/CLEARANCE 2020-07-21 06:01:00 Doctor June [facility] FORMS [place] [facility] FLU VACC ([id number]), 6+ 2020-06-21 14:20:16 Geri Pagan [facility] MONTHS, IM, QUAD Medical Branch DISCLOSURE AND CONSENT, 2020-06-14 05:01:00 Doctor Unacecilia, [facility] MED[facility] SURGICAL [place] [facility] PROCEDURES BI SCREENING MAMMOGRAM 2020-05-03 20:47:04 [facility] Branch US PELVIS COMPLETE WITH 2020-05-03 20:37:12 Requisition, Paper U [facility] TRANSVAGINAL Medical Branch NOTICE OF PRIVACY 2020-05-03 19:43:39 Doctor Unacecilia, [facility] [place] [facility] CONSENT/REFUSAL FOR 2020-05-03 19:43:31 Doctor Unassigned, Pamela [facility] DIAGNOSIS AND TREATMENT [place] [facility] ASSIGNMENT OF BENEFITS 2020-05-03 19:43:21 Doctor [facility], [facility] [place] [facility] ASSIGNMENT OF BENEFITS 2020-02-22 15:09:41 Doctor Unassigned, Un [facility] [place] [facility] NOTICE OF PRIVACY 2020-02-03 17:58:02 Doctor Unassigned, [facility] [place] [facility] CONSENT/REFUSAL FOR 2020-02-03 17:57:50 Doctor Unassigned, Pamela [facility] DIAGNOSIS AND TREATMENT [place] [facility] Ligation of Fallopian Tube 1996-09-02 00:00:00 [facility]oscopic 1991-09-02 00:00:00 Marly saul Cholecystectomy Practice Tonsillectomy [facility] Plan of Care Planned Activity Planned Date Details Comments Source Diagnostic Test 2021-05-11 Marly vidales Pending 00:00:00 fingerstick, blood Practice [code = glucose, fingerstick, blood] Future Appointment 2021-08-10 [facility] 00:00:[id number]; [address], [place] [address] Encounters Start End Encounter Admission Attending Care Care Encounter Source Date/Time Date/Time Type Type Clinicians Facility Department ID 2021-07-15 Outpatient Daniel_T [facility] [id number] [facility] 17:15:22 [id number] Family Practic e 2021-07-15 Outpatient Daniel_T VFP VFP [id number] [facility] 12:30:01 [id number] Family Practic e 2021-07-15 Outpatient Daniel_T VFP VFP [id number] [facility] 03:19:58 [id number] Family Practic e 2021-07-14 Outpatient Daniel_T VFP VFP [id number] [facility] 23:51:55 [id number] Family Practic e 2021-07-14 Outpatient Daniel_T VFP VFP [id number] [facility] 19:12:24 [id number] Family Practic e 2021-07-14 Outpatient Daniel_T VFP VFP [id number] [facility] 18:46:58 [id number] Family Practic e 2021-07-14 Outpatient Jam_T VFP [facility] [id number] [facility] 17:50:57 [id number] Family Sarika e 2021-07-01 Emergency [facility] [id number] Univers 17:33:08 ity of [facility] 2021-06-29 Emergency [facility] [id number] Univers 23:22:16 ity of [facility] 2021-05-11 2021-05-11 Ang [facility] [place] - [id number] V illage 00:00:00 00:00:00 Zofia [facility] [place], Medical - Practi jacinto ESTEVEZ: [id number] VM_HOU_Shaian e [address] [facility], [address], [place] [address] , Ph. 2021-03-29 2021-03-29 Orders Doctor KAUR [id number] Univers 00:00:00 00:00:00 Only Unassigned, [place] [id number] ity of [place] [facility] [id number] Dank as [phone] [address] 2021-03-28 2021-03-28 [place] [facility] [id number] Univers 00:00:00 00:00:00 Nkechi [place] [id number] ity [id number] [phone] Md dical [facility] 059 [facility] 2021-03-17 2021-03-17 Outpatient R RADIOLOGY [facility] [id number] Univers 11:00:00 11:00:00 [id number] ity of [facility] 2021-03-17 2021-03-17 Outpatient R RADIOLOGY [facility] [id number] Univers 00:00:00 00:00:00 ity of [facility] 2021-03-17 2021-03-17 Orders Doctor KAUR [id number] Univers 00:00:00 00:00:00 Only Unassigned, [place] [id number] ity of [place] [facility] [id number] Dank as [phone] [facility] 009 Essie 2021-02-13 2021-02-13 Ang VFP [place] - [id number] V illage 00:00:00 00:00:00 Zofia [facility] [place], Medical - Prackelvin casey MD: [id number] VM_HOU_Shad e [address], [address], [place] [address] , Ph. 2021-02-13 2021-02-13 Orders Doctor KAUR 1.2.840.114 [id number] Univers 00:00:00 00:00:00 Only Unassigned, [place] [id number] ity of [place] [facility] [id number] Dank as [phone] [address] 2021-01-09 2021-01-09 Outpatient Jacob SOLIS [facility] [id number] Univers 08:00:00 08:00:00 CIRO [facility] 2020-12-21 2020-12-21 [facility] [id number] Univers 08:00:00 08:00:00 [facility] 2020-12-20 2020-12-20 Outpatient Jacob SOLIS [facility] [id number] Univers 08:30:00 08:30:00 [facility] 2020-11-17 2020-11-17 [facility] [id number] Univers 00:00:00 00:00:00 Outreach José [facility] [id number] [facility] [id number] [phone] Md dical 388 Branch 2020-10-28 2020-10-28 Orders Doctor DIETRICH 1.2.840.114 [id number] Univers 00:00:00 00:00:00 Only Unassigned, [place] [id number] ity of [place] [facility] [id number] Dank as [phone] [address] 2020-10-07 2020-10-07 Orders Doctor DIETRICH 1.2.840.114 [id number] Univers 00:00:00 00:00:00 Only Unassigned, [place] [id number] ity of [place] [facility] [id number] Dank as [phone] [facility] 009 Essie 2020-10-06 2020-10-06 Ang VFP [place] - [id number] V illage 00:00:00 00:00:00 Zofia [facility] Family [place], Medical - Practi jacinto SETEVEZ: [id number] VM_HOU_Shaian e [address], [address], [place] [address] , Ph. 2020-09-16 2020-09-16 Emergency [facility] [id number] Univers 11:02:00 11:57:00 Rachel S [place] [id number] i ty [id number] [phone] [facility] 084 Branch 2020-09-16 2020-09-16 Orders Doctor KAUR 1.2.840.114 [id number] Univers 00:00:00 00:00:00 Only Unassigned, [place] [id number] ity of [place] [facility] [id number] Dank as [phone] [facility] 009 Essie 2020-09-13 2020-09-13 Patient [facility] 1.2.840.114 [id number] Univers 00:00:00 00:00:00 Secure Msg [facility] [id number] ity of [place] [id number] [place]ank [place] Professio [phone] Md rodolfoal nal 044 Branch Office Building One 2020-08-05 2020-08-05 Telephone [facility] [id number] Univers 00:00:00 00:00:00 Marbella J [facility] [id number] ity of Surgical [id number] Dank as Specialti [phone] Md dical es [address] [facility] 2020-08-05 2020-08-05 Telephone [facility] 1.2840.114 [id number] Univers 00:00:00 00:00:00 [facility] [id number] ity of [place] [id number] [place]ank as Professio [phone] Md dical nal 044 Essie Office [facility] 2020-08-04 2020-08-04 Letter Latasha [facility] 1.2840.114 [id number] Univers 00:00:00 00:00:00 (Out) [facility] [id number] ity of [place] [id number] [place] Professio [phone] Md dical nal 044 Essie Office [facility] One 2020-08-03 2020-08-03 Laboratory Lab, Adc Fam Pob I [facility] 1.2 840.114 [id number] Univers 18:24:15 18:44:15 Only Jose [facility] [id number] ity of [place] [id number] [place]ank as Professio [phone] Md dical nal 044 Essie Office [facility] 2020-08-03 2020-08-03 Outpatient R [facility] [id number] Univers 18:20:00 18:20:00 [id number] ity of [facility] 2020-08-03 2020-08-03 Outpatient R [facility] [id number] Univers 18:20:00 18:20:00 ity of [facility] 2020-07-21 2020-07-21 [facility] [id number] Univers 00:00:00 00:00:00 Nkechi Audrey [id number] ity [id number] [phone] [facility] nal 059 [facility] 2020-07-21 2020-07-21 Orders Doctor DIETRICH 1.2.840.114 [id number] Univers 00:00:00 00:00:00 Only Unassigned, [place] [id number] ity of [place] [facility] [id number] Dank as [phone] [address] 2020-07-20 2020-07-20 Laboratory Pc, Adc Echo Room 1 - [facility] 1 .2.840.114 [id number] Univers 07:59:54 08:59:54 Only Shaw Peña 350.1.13. 10 ity of [id number] [phone] Md dical nal 059 [facility] 2020-07-20 2020-07-20 Outpatient R [facility] [id number] Univers 08:00:00 08:00:00 [id number] ity of [facility] 2020-07-20 2020-07-20 Outpatient R [facility] [id number] Univers 08:00:00 08:00:00 ity of [facility] 2020-07-08 2020-07-08 Outpatient R [facility] [id number] Univers 09:00:00 09:00:00 ity of [facility] 2020-07-08 2020-07-08 Outpatient R [facility] [id number] Univers 09:00:00 09:00:00 ity of [facility] 2020-07-05 2020-07-05 Ang [facility] - [id number] V illage 00:00:00 00:00:00 [facility] Korey [place] - Prackelvin casey MD: [id number] VM_HOEvelia_Milad guadarrama [address] [address] , Ph. 2020-06-28 2020-06-28 Office [facility] 1.2.840.114 [id number] Univers 14:42:48 15:45:21 Visit Nkechi [place] [id number] ity [id number] [phone] Md dical nal [address] [place] [address] 2020-06-28 2020-06-28 [facility] [id number] Univers 15:00:00 15:00:00 NKECHI [id number] ity o f [facility] 2020-06-28 2020-06-28 Outpatient [facility] [id number] Univers 15:00:00 15:00:00 NKECHI ity o f [facility] 2020-06-28 2020-06-28 Patient Latasha [facility] 1.2.840.114 [id number] Univers 00:00:00 00:00:00 Secure Msg [facility] [id number] ity of [place] [id number] [place]ank [place] Professio [phone] [address] Office [facility] One 2020-06-23 2020-06-23 Case Latasha [facility] 1.2.840.114 [id number] Univers 00:00:00 00:00:00 Management [facility] [id number] ity of [place] [id number] [place]ank as Professio [phone] [address] 2020-06-21 2020-06-21 [facility] Lab, Adc Fam Pob I [facility] 1.2. 840.114 [id number] Univers 09:40:32 10:00:32 Visit Geri [facility] [id number] 0 ity of [place] [id number] [place]ank as Professio [phone] [address] Office [facility] 2020-06-21 2020-06-21 Office Latasha [facility] 1.2.840.114 [id number] Univers 08:28:04 09:40:39 Visit Geri [facility] 350.1.13.10 ity of [place] 4.2.7.2.686 Dank as Professio [phone] [address] 2020-06-21 2020-06-21 Outpatient R LATASHA [facility] [id number] Univers 08:30:00 08:30:00 WONDIFUL ity o brayan [facility] 2020-06-21 2020-06-21 Outpatient R LATASHA [facility] [id number] Univers 08:30:00 08:30:00 WONDIFUL ity o f [facility] 2020-06-17 2020-06-17 Letter Genaro [facility] [id number] Univers 00:00:00 00:00:00 (Out) Krjennifera MULTISPEC 350.1.13.10 ity of [place]AL[place] 4.2.7.2.686 [facility] [phone] [address] [facility] 2020-06-16 2020-06-16 Telephone Genaro [facility] 1.2.840.114 [id number] Univers 00:00:00 00:00:00 Maxx MULTISPEC 350.1.13.10 ity of [place] 4.2.7.2.686 [facility] [phone] [address] [facility] 2020-06-14 2020-06-14 Office Maxx Lam [facility] 1.2.840 .114 [id number] Univers 13:14:25 16:06:03 Visit Yusra WanPEC 350.1.13.10 ity of [place] 4.2.7.2.686 [facility] [phone] [address] [facility] 2020-06-14 2020-06-14 Outpatient R [facility] [id number] Univers 13:30:00 13:30:00 [id number] ity of [facility] 2020-06-14 2020-06-14 Outpatient R MONIQUE [facility] [id number] Univers 13:30:00 13:30:00 YUSRA gonzalez f [facility] 2020-06-14 2020-06-14 Orders Doctor KAUR 1.2.840.114 [id number] Univers 00:00:00 00:00:00 Only Unassigned, [place] 350.1.13.10 ity of [place] [facility] 4.2.7.2.686 Dank [phone] [facility] [address] 2020-05-03 2020-05-03 Hospital Radiology [facility] 1.2.840.114 [id number] Univers 14:48:28 23:59:00 Encounter Audrey 350.1.13.10 ity of [place] 4.2.7.2.686 [facility] [phone] [facility] [address] 2020-05-03 2020-05-03 Outpatient [facility] [id number] Univers 15:40:00 15:40:00 ity of [facility] 2020-05-03 2020-05-03 Hospital Radiology [facility] 1.2.840.114 [id number] Univers 14:47:35 14:47:35 Encounter [place] 350.1.13.10 ity of [place] 4.2.7.2.686 [facility] [phone] [facility] [address] 2020-05-03 2020-05-03 Outpatient R RADIOLOGY [facility] [id number] Univers 00:00:00 00:00:00 ity of [facility] 2020-04-26 2020-04-26 Outpatient R [facility] [id number] Univers 10:30:00 10:30:00 [id number] ity of [facility] 2020-04-26 2020-04-26 Outpatient R MONIQUE [facility] [id number] Univers 10:30:00 10:30:00 YUSRA daly o f [facility] 2020-04-26 2020-04-26 Case Genaro [facility] [id number] Univers 00:00:00 00:00:00 Management Maxx MULTISPEC 350.1.13.10 ity of [place] 4.2.7.2.686 [facility] [phone] [facility] AND [address] DI[facility]ETES [facility]IC 2020-03-16 2020-03-16 Outpatient R MARIA DEL CARMEN [facility] [id number] Univers 15:20:00 15:20:00 TOO [id number] ity [facility] 2020-02-22 2020-02-22 Office Maxx Lam UNIVERSIT 1.2.8 40.114 [id number] Univers 10:08:06 10:30:23 Visit Randy Deutsch [facility] 350.1.13.10 ity of [facility] 4.2.7.2.686 [facility] [phone] [facility] [address] 2020-02-22 2020-02-22 Outpatient R [facility] [id number] Univers 10:00:00 10:00:00 [id number] ity [facility] 2020-02-22 2020-02-22 Outpatient R THOMAS [facility] [id number] Univers 10:00:00 10:00:00 RANDY ity [facility] 2020-02-22 2020-02-22 Orders Doctor KAUR 1.2.840.114 [id number] Univers 00:00:00 00:00:00 Only Unassigned, [place] 350.1.13.10 ity [place] [facility] 4.2.7.2.686 Dank as [phone] [facility] [address] 2020-02-11 2020-02-11 Outpatient R KWADWO, [facility] [id number] Univers 09:00:00 09:00:00 RYAN [id number] ity of [facility] 2020-02-11 2020-02-11 [facility] [id number] Univers 09:00:00 09:00:00 RYAN ity [facility] 2020-02-10 2020-02-10 Outpatient R MARIA DEL CARMEN [facility] [id number] Univers 15:00:00 15:00:00 TOO ity [facility] 2020-02-03 2020-02-03 Emergency [facility] [id number] [id number] Univers 13:08:16 14:01:00 Josias [place] 350.1.13.10 i ty of [place] 4.2.7.2.686 [facility] [phone] [facility] 0[address] 2019-12-09 2019-12-09 Telephone KAUR [place] [id number] Univers 00:00:00 00:00:00 Anoop [place] 350.1.13.10 it y of [facility] 4.2.7.2.686 Dank as [phone] [facility] 019 [address] 2019-12-07 2019-12-07 Urgent Pob1, Acute Care Clinic [facility] 1. 2.840.114 [id number] Univers 10:14:57 10:34:57 [facility] 350.1.13.10 ity of [place] 4.2.7.2.686 Dank as Professio [phone] Md dical [facility] [address] 2019-12-07 2019-12-07 Outpatient R [facility] [id number] Univers 10:20:00 10:20:00 [id number] ity of [facility] 2019-12-07 2019-12-07 Outpatient R ROLANDO [facility] [id number] Univers 10:20:00 10:20:00 ANOOP ity of [facility] 2019-12-07 2019-12-07 Telephone Pob1, Acute [facility] 1.2.840.114 [id number] Univers 00:00:00 00:00:00 Care Clinic Health 350.1.13.10 ity of [place] 4.2.7.2.686 Dank as Professio [phone] [address] Office [facility] One 2019-12-07 2019-12-07 Patient Latasha [facility] 1.2.840.114 [id number] Univers 00:00:00 00:00:00 Secure Msg Wondiful A [place] 350.1.13.10 ity [place]2.7.2.[place] [phone] [facility] 044 [facility] 2019-10-22 2019-10-22 [facility] 1.2.840.114 [id number] Univers 00:00:00 00:00:00 Wondiful A Health 350.1.13.10 ity of [place] 4.2.7.2.686 [place]ank as Professio [phone] [facility] 044 [facility] One 2019-04-08 2019-04-08 [facility] 1.2.840.114 [id number] Univers 00:00:00 00:00:00 Judy [place] 350.1.13.10 i ty of [place]2.7.2.[place] [phone] [facility] 220 [facility] 2019-04-08 2019-04-08 [facility] 1.2.840.114 [id number] Univers 00:00:00 00:00:00 Wondiful A Health 350.1.13.10 ity of [place] 4.2.7.2.686 [place]ank as Professio [phone] [address] Office [facility] One Results Test Description Test Time Test Comments Results Result Sour e Comments BI SCREENING Examination:BI Universi ty of MAMMOGRAM 1 SCREENING MAMMOGRAM [facility] BILATERAL 20:56:23 BILATERAL Branch History:Patient is 44 year old and is seen for: ?Encounter for screening mammogram for breast cancer. Computer-aided detection (CAD) utilized. Comparisons: 01/29/2019 BI SCREENING MAMMOGRAM BILATERAL, 05/17/2017 DIGITAL MAMMOGRAM, SCREENING, and 01/24/2016 DIGITAL MAMMOGRAM, SCREENING Findings:The breasts have scattered areas of fibroglandular density. LeftThere are vascular calcifications seen in the upper outer quadrant of the left breast in the posterior depth. Compared to the previous study, there are no significant changes. RightThere are vascular calcifications seen in the upper inner quadrant of the right breast in the posterior depth on the CC view. Compared to the previous study, there are no significant changes. Impression:No signs of malignancy. Recommendation:Krista poon mammographic follow-up - Bilateral BI-RADS Category: Both 2 - Benign US PELVIS HISTORY: Pelvic Universit y of COMPLETE WITH 1 pain. TECHNIQUE: [facility] TRANSVAGINAL 20:43:20 Both transabdominal Bra nc and transvaginal pelvic ultrasound studieswere completed by the technologist. FINDINGS: Uterus is slightly enlarged, lying in retroverted position in thepelvis, best visualized with endovaginal technique, measures approximately8.4 x 5.3 x 6.7 cm in size with heterogeneous echo texture of themyometrium, particularly of the anterior wall of the fundus and upper bodywithout a discrete fibroid visualized. IUD appears to be in good position within the uterine cavity. Endometrialecho complex is 4.5 mm. No free fluid in the cul-de-sac. 5 mm nabothiancyst noted in the posterior wall of the cervix. Right ovary is 3 x 2.1 x 2.0 cm (6.94 ml) and left ovary is 4.3 x 2.0 x 1.6cm (7.58 ml). Calcifications are seen around the surface of the rightovary. Lower pole of the left ovary showed partially decompressed 16 mmsize corpus luteum. CONCLUSIONS: 1. Slightly enlarged uterus, lying in retroverted position within thepelvis, with heterogeneous myometrial texture without a discrete fibroidconfirmed.2. No endometrial hyperplasia. IUD is in good position within the uterus.3. 16mm corpus luteum in the left ovary. [facility], Radiant Results Inft User - 05/03/2020 3:44 PM CDTHISTORY: Pelvic pain.TECHNIQUE: Both transabdominal and transvaginal pelvic ultrasound studieswere completed by the technologist.FINDING S: Uterus is slightly enlarged, lying in retroverted position in thepelvis, best visualized with endovaginal technique, measures approximately8.4 x 5.3 x 6.7 cm in size with heterogeneous echo texture of themyometrium, particularly of the anterior wall of the fundus and upper bodywithout a discrete fibroid visualized.IUD appears to be in good position within the uterine cavity. Endometrialecho complex is 4.5 mm. No free fluid in the cul-de-sac. 5 mm nabothiancyst noted in the posterior wall of the cervix.Right ovary is 3 x 2.1 x 2.0 cm (6.94 ml) and left ovary is 4.3 x 2.0 x 1.6cm (7.58 ml). Calcifications are seen around the surface of the rightovary. Lower pole of the left ovary showed partially decompressed 16 mmsize corpus luteum.CONCLUSIONS: 1. Slightly enlarged uterus, lying in retroverted position within thepelvis, with heterogeneous myometrial texture without a discrete fibroidconfirmed.2. No endometrial hyperplasia. IUD is in good position within the uterus.3. 16mm corpus luteum in the left ovary.
== END 2021-07-12 18:07 | disposition home or self-care (01) ==
LOC: ER 13:44
DX: K59.00 Constipation, unspecified (principal); D64.9 Anemia, unspecified; E78.00 Pure hypercholesterolemia, unspecified
CPT/HCPCS: 36415; 71045; 80048; 80076; 81003; 83735; 83880; 84484; 85025; 85610; 93005; 99282

== ENCOUNTER 2023-04-03 10:24 | Emergency (ER) | payer SELFPAY ==
--- OUTSIDE RECORDS SUMMARY | 2023-04-03 10:31 | XMS REPORT | Continuity of Care Document ---
:1975 Author Organization [facility] t Address [address] [place] [address] Care Team Providers Name Role Phone SILVANO PEREZ Primary Care Physician Unavailable TORSTEN CATHERINE Attending Clinician Unavailable Torsten Ovalles Attending Clinician Juan Attending Clinician Unavailable Doctor Unassigned, [place] Attending Clinician Unavailable Nkechi De Los Santos MD Attending Clinician RADIOLOGY Attending Clinician Unavailable CIRO SOLIS Attending Clinician Unavailable JOSÉ FIELDS Attending Clinician Unavailable José Fields DO Attending Clinician Rachel Mims Attending Clinician Neymar Pagan MD Attending Clinician Marbella Parks Attending Clinician Lab, Adc Fam Pob I Attending Clinician Unavailable Jose J Aguilar Attending Clinician , Adc Echo Room 1 - Attending Clinician Unavailable Casey ESTEVEZ, Shaw Quiñonez Attending Clinician NKECHI DE LOS SANTOS Attending Clinician Unavailable NEYMAR PAGAN Attending Clinician Unavailable Maxx Lam Attending Clinician Yusra Amaya MD Attending Clinician YUSRA AMAYA Attending Clinician Unavailable Radiology Attending Clinician Unavailable Randy Deutsch MD Attending Clinician RANDY DEUTSCH Attending Clinician Unavailable RYAN BURKETT Attending Clinician Unavailable Josias Alfaro MD Attending Clinician Anoop Landin Attending Clinician Pob1, [facility] Attending Clinician Unavailable ANOOP MIX Attending Clinician Unavailable Judy Damico MD Attending Clinician Unavailable TORSTEN CATHERINE Admitting Clinician Unavailable Juan Admitting Clinician Unavailable Payers Payer Name Policy Type Policy Number Effective Date Expiration Date S [facility] [place] [facility] [id number] 2019 [employer] 00:00:00 [employer] OUT [id number] 2020 OF NETWORK 00:00:00 [employer] [id number] 2020 BENEFITS MANAGEMENT 00:00:00 [employer] [place] - OUT [id number] 2018 OF STATE 00:00:00 Problems Condition Condition Condition Status Onset Resolution Last Treating Co mments Source Name Details Category Date Date Treatment Clinician Date Type 2 Type 2 Problem Active [facility] diabetes Diabetes 6-17 Family mellitus Mellitus 00:00: Practi c 00 e Abnormal Abnormal Disease Active 2019-09 Unive rs EKG EKG 0-22 ity of 00:00: [place] [address] Medical Branch Insomnia Insomnia Problem Active Scott neff 8-20 Family 00:00: Practic 00 e Finding Finding Problem Active [facility] related to Related to 8-20 Fa merlin sleep Sleep 00:00: Practic 00 e Type 2 Type 2 Problem Active [facility] diabetes Diabetes 6-26 Family mellitus Mellitus 00:00: [...] (BMI 5-23 ity of 30-39.9) 30-39.9) 00:00: [place] 00 Medical Branch Vitamin D Vitamin D Disease Active Uni vers deficiency deficiency 5-13 it y of 00:00: [place] 00 Medical Branch Need for Need for Disease Active Unive rs hepatitis hepatitis 2-20 ity of A A 00:00: [place] immunizati immunizati 00 Me dical on on Branch Abnormal Abnormal Disease Active Unive rs liver liver 2-20 ity of function function 00:00: [place] test test 00 Medical Branch Nodule of Nodule of Disease Active Overview: Univers kidney kidney 1-16 Formattin ity of 00:00: g of this 00 note Medical might be Branch different from the original. Right kidney, Per CT scan done 10/04/17 at [facility]: "focal fatty tissue is seen on the anterolat eral surface near the upper pole of the right kidney, consisten t with a developme ntal variation " Right Right Disease Active Univers flank pain flank pain 1-09 it y of 00:00: [place] 00 Medical Branch Type 2 Type 2 Disease Active Univers diabetes diabetes 9-06 ity of mellitus mellitus 00:00: [place] with with 00 Medical proteinuri proteinuri Br anch c diabetic c diabetic nephropath nephropath y y Dyslipidem Dyslipidem Disease Active U nivers ia ia 05-08 ity of 00:00: [place] 00 Medical Branch Essential Essential Disease Active Uni vers hypertensi hypertensi 05-08 it y of on on 00:00: [place] 00 Medical [place] Proteinuri Proteinuri Disease Active U nivers a a 05-08 ity of 00:00: [place] 00 [facility] General General Disease Active 2015-09 Univers counseling counseling 10-23 it y of [place] advice [place] female 00 Medi marian contracept contracept Br anch ion ion Excessive Excessive Disease Active Uni vers or or 05-24 ity of frequent frequent 00:00: [place] menstruati menstruati 00 Me dical on on Branch On On Disease Active Univers Depo-Prove Depo-Prove 05-22 it y of ra for ra for 00:00: [place] contracept contracept 00 Me dical ion ion Branch Fatty Fatty Disease Active Univers liver liver ity of [facility] H. pylori H. pylori Disease Active Uni vers infection infection ity of [facility] Allergies, Adverse Reactions, Alerts Allergy Allergy Status Severity Reaction(s) Onset Inactive Treating Comm ents Source Name Type Date Date Clinician Amoxicil Propensi Active Nausea Univer s mehran-Pot ty to and/or 4-15 ity of Clavulan adverse Vomiting 00:00: [place] ate reaction 00 [facility] s Branch AMOXICIL DRUG Active Med Diarrhea 0 Univer s MEHRAN-POT 4-15 ity of CLAVULAN 00:00: [place] ATE 00 Medical [place] Amoxicil Allergy Active Anaphylaxis Vi llage mehran to Family substanc Practic e e Social History Social Habit Start Date Stop Date Quantity Comments Source Exposure to Not sure [place] of SARS-CoV-2 [facility] (event) [place] Alcohol intake 2022-12-10 2022-12-10 0 /d University of 00:00:00 00:00:00 [facility] Alcohol Comment 2018-07-08 2018-07-08 occaisonal Universit y of 00:00:00 00:00:00 [facility] Tobacco use and 2016-08-22 2016-08-22 Smokeless tobacco Un iversity of exposure 00:00:00 00:00:00 non-user [facility] Sex Ass[birth year] Universit y of 00:00:00 00:00:00 [facility] Smoking Status Start Date Stop Date Source Never smoked tobacco [facility] Medications Ordered Filled Start Stop Current Ordering Indication Dosage Frequency Signature Comments Components Source Medication Medication Date Date Medication? Clinician (SIG) Name Name nathaniel 2022- No 1000mg 1,000 mg, Univers en 4- 04-10 Oral, ity of (TYLENOL) 19:00: 18:11 ONCE, [place] :[place] dose, On Medical 1,000 mg Mon Branch 12/10/22 at 1400, Routine traMADoL 50 2022-0 Yes [id number] 50mg Take 1 Univ ers mg tablet 4-10 tablet by ity o f 00:00: mouth 00 every 6 Medical (six) Branch hours as needed for Pain (scale 7-10). Indication s: acute pain methocarbam Yes [id number] 500mg Take 1 Univers oL 500 mg 1-15 tablet by ity o f tablet 00:00: mouth (four) Medical times Branch daily as needed for Pain (scale 4-6). naproxen Yes [id number] 500mg Take 1 U nivers (NAPROSYN) 1-15 tablet by ity of 500 mg 00:00: mouth 2 [place] tablet 00 (two) Medical times Branch daily with meals. methocarbam Yes [id number] 500mg Take 1 Univers oL 500 mg 1-15 tablet by ity o f tablet 00:00: mouth (four) Medical times Branch daily as needed for Pain (scale 4-6). naproxen Yes [id number] 500mg Take 1 U nivers (NAPROSYN) 1-15 tablet by ity of 500 mg 00:00: mouth 2 [place] tablet 00 (two) Medical times Branch daily with meals. methocarbam 0 Yes [id number] 500mg Take 1 Univers oL 500 mg 1-15 tablet by ity o f tablet 00:00: mouth 4 (four) Medical times Branch daily as needed for Pain (scale 4-6). naproxen 2020- Yes [id number] 500mg Take 1 U nivers (NAPROSYN) 1-15 tablet by ity of 500 mg 00:00: mouth 2 [place] tablet 00 (two) Medical times Branch daily with meals. methocarbam 2021-0 Yes [id number] 500mg Take 1 Univers oL 500 mg 1-15 tablet by ity o f tablet 00:00: mouth 4 (four) Medical times Branch daily as needed for Pain (scale 4-6). naproxen 2021-0 Yes [id number] 500mg Take 1 U nivers (NAPROSYN) 1-15 tablet by ity of 500 mg 00:00: mouth 2 [place] tablet 00 (two) Medical times Branch daily with meals. methocarbam 2021-0 Yes [id number] 500mg Take 1 Univers oL 500 mg 1-15 tablet by ity o f tablet 00:00: mouth (four) Medical times Branch daily as needed for Pain (scale 4-6). naproxen 2021-0 Yes [id number] 500mg Take 1 U nivers (NAPROSYN) 1-15 tablet by ity of 500 mg 00:00: mouth 2 [place] tablet 00 (two) Medical times Branch daily with meals. methocarbam 1-0 Yes [id number] 500mg Take 1 Univers oL 500 mg 1-15 tablet by ity o f tablet 00:00: mouth (four) Medical times Branch daily as needed for Pain (scale 4-6). naproxen 2021-0 Yes [id number] 500mg Take 1 U nivers (NAPROSYN) 1-15 tablet by ity of 500 mg 00:00: mouth 2 [place] tablet 00 (two) Medical times Branch daily with meals. methocarbam 2021-0 Yes [id number] 500mg Take 1 Univers oL 500 mg 1-15 tablet by ity o f tablet 00:00: mouth 4 (four) Medical times Branch daily as needed for Pain (scale 4-6). naproxen 2021-0 Yes [id number] 500mg Take 1 U nivers (NAPROSYN) 1-15 tablet by ity of 500 mg 00:00: mouth 2 [place] tablet 00 (two) Medical times Branch daily with meals. methocarbam 2021-0 Yes [id number] 500mg Take 1 Univers oL 500 mg 1-15 tablet by ity o f tablet 00:00: mouth (four) Medical times Branch daily as needed for Pain (scale 4-6). naproxen Yes [id number] 500mg Take 1 U nivers (NAPROSYN) 1-15 tablet by ity of 500 mg 00:00: mouth 2 [place] tablet 00 (two) Medical times Branch daily with meals. methocarbam Yes [id number] 500mg Take 1 Univers oL 500 mg 1-15 tablet by ity o f tablet 00:00: mouth 4 [place] 00 (four) Medical times Branch daily as needed for Pain (scale 4-6). naproxen Yes [id number] 500mg Take 1 U nivers (NAPROSYN) 1-15 tablet by ity of 500 mg 00:00: mouth 2 [place] tablet 00 (two) Medical times Branch daily with meals. SITagliptin 2019-09 Yes [id number] 100mg Take 1 Univers (JANUVIA) 0-27 tablet by ity o f 100 mg 00:00: mouth [place] tablet 00 daily. Medical Branch SITagliptin 2019-09 Yes [id number] 100mg Take 1 Univers (JANUVIA) 0-27 tablet by ity o f 100 mg 00:00: mouth [place] tablet 00 daily. Medical Branch SITagliptin 2019-09 Yes [id number] 100mg Take 1 Univers (JANUVIA) 0-27 tablet by ity o f 100 mg 00:00: mouth [place] tablet 00 daily. Medical Branch SITagliptin 2019-09 Yes [id number] 100mg Take 1 Univers (JANUVIA) 0-27 tablet by ity o f 100 mg 00:00: mouth [place] tablet 00 daily. Medical Branch SITagliptin 2019-09 Yes [id number] 100mg Take 1 Univers (JANUVIA) 0-27 tablet by ity o f 100 mg 00:00: mouth [place] tablet 00 daily. Medical Branch SITagliptin 2019-09 Yes [id number] 100mg Take 1 Univers (JANUVIA) 0-27 tablet by ity o f 100 mg 00:00: mouth [place] tablet 00 daily. Medical Branch SITagliptin 2019-09 Yes [id number] 100mg Take 1 Univers (JANUVIA) 0-27 tablet by ity o f 100 mg 00:00: mouth [place] tablet 00 daily. Medical Branch SITagliptin 2019-09 Yes [id number] 100mg Take 1 Univers (JANUVIA) 0-27 tablet by ity o f 100 mg 00:00: mouth [place] tablet 00 daily. [facility] Branch SITagliptin 2019-09 Yes [id number] 100mg Take 1 Univers (JANUVIA) 0-27 tablet by ity o f 100 mg 00:00: mouth [place] tablet 00 daily. [facility] Branch SITagliptin 2019-09 Yes [id number] 100mg Take 1 Univers (JANUVIA) 0-27 tablet by ity o f 100 mg 00:00: mouth [place] tablet 00 daily. [facility] Branch SITagliptin 2019-09 Yes [id number] 100mg Take 1 Univers (JANUVIA) 0-27 tablet by ity o f 100 mg 00:00: mouth [place] tablet 00 daily. [facility] Branch SITagliptin 2019-09 Yes [id number] 100mg Take 1 Univers (JANUVIA) 0-27 tablet by ity o f 100 mg 00:00: mouth [place] tablet 00 daily. [facility] Branch SITagliptin 2019-09 Yes [id number] 100mg Take 1 Univers (JANUVIA) 0-27 tablet by ity o f 100 mg 00:00: mouth [place] tablet 00 daily. [facility] Branch SITagliptin 2019-09 Yes [id number] 100mg Take 1 Univers (JANUVIA) 0-27 tablet by ity o f 100 mg 00:00: mouth [place] tablet 00 daily. Medical Branch SITagliptin 2019-09 Yes [id number] 100mg Take 1 Univers (JANUVIA) 0-27 tablet by ity o f 100 mg 00:00: mouth [place] tablet 00 daily. [facility] Branch SITagliptin 2019-09 Yes [id number] 100mg Take 1 Univers (JANUVIA) 0-27 tablet by ity o f 100 mg 00:00: mouth [place] tablet 00 daily. [facility] Branch SITagliptin 2019-09 Yes [id number] 100mg Take 1 Univers (JANUVIA) 0-27 tablet by ity o f 100 mg 00:00: mouth [place] tablet 00 daily. Medical Branch SITagliptin 2019-09 Yes [id number] 100mg Take 1 Univers (JANUVIA) 0-27 tablet by ity o f 100 mg 00:00: mouth [place] tablet 00 daily. [facility] Branch SITagliptin 2019-09 Yes [id number] 100mg Take 1 Univers (JANUVIA) 0-27 tablet by ity o f 100 mg 00:00: mouth [place] tablet 00 daily. [facility] Branch SITagliptin 2019-09 Yes [id number] 100mg Take 1 Univers (JANUVIA) 0-27 tablet by ity o f 100 mg 00:00: mouth [place] tablet 00 daily. Medical Branch SITagliptin 2020-1 Yes [id number] 100mg Take 1 Univers (JANUVIA) 0-27 tablet by ity o f 100 mg 00:00: mouth [place] tablet 00 daily. Medical Branch nortriptyli 2020-1 Yes TAKE 1 Univ ers ne 10 mg 0-07 CAPSULE BY ity o f capsule 00:00: MOUTH AT [place] BEDTIME Medical INCREASE Branch TO 2 CAPSULES IN TWO WEEKS IF SYMPTOMS NOT IMPROVED nortriptyli 2020-1 Yes TAKE 1 Univ ers ne 10 mg 0-07 CAPSULE BY ity o f capsule 00:00: MOUTH AT [place] BEDTIME Medical INCREASE Branch TO 2 CAPSULES IN TWO WEEKS IF SYMPTOMS NOT IMPROVED nortriptyli 2020-1 Yes TAKE 1 Univ ers ne 10 mg 0-07 CAPSULE BY ity o f capsule 00:00: MOUTH AT [place] BEDTIME Medical INCREASE Branch TO 2 CAPSULES IN TWO WEEKS IF SYMPTOMS NOT IMPROVED nortriptyli 2020-1 Yes TAKE 1 Univ ers ne 10 mg 0-07 CAPSULE BY ity o f capsule 00:00: MOUTH AT [place] BEDTIME Medical INCREASE Branch TO 2 CAPSULES IN TWO WEEKS IF SYMPTOMS NOT IMPROVED nortriptyli 2020-1 Yes TAKE 1 Univ ers ne 10 mg 0-07 CAPSULE BY ity o f capsule 00:00: MOUTH AT [place] BEDTIME Medical INCREASE Branch TO 2 CAPSULES IN TWO WEEKS IF SYMPTOMS NOT IMPROVED nortriptyli 2020-1 Yes TAKE 1 Univ ers ne 10 mg 0-07 CAPSULE BY ity o f capsule 00:00: MOUTH AT [place] BEDTIME Medical INCREASE Branch TO 2 CAPSULES IN TWO WEEKS IF SYMPTOMS NOT IMPROVED nortriptyli 2020-1 Yes TAKE 1 Univ ers ne 10 mg 0-07 CAPSULE BY ity o f capsule 00:00: MOUTH AT [place] BEDTIME Medical INCREASE Branch TO 2 CAPSULES IN TWO WEEKS IF SYMPTOMS NOT IMPROVED nortriptyli 2020-1 Yes TAKE 1 Univ ers ne 10 mg 0-07 CAPSULE BY ity o f capsule 00:00: MOUTH AT [place] BEDTIME Medical INCREASE Branch TO 2 CAPSULES IN TWO WEEKS IF SYMPTOMS NOT IMPROVED nortriptyli 2020-1 Yes TAKE 1 Univ ers ne 10 mg 0-07 CAPSULE BY ity o f capsule 00:00: MOUTH AT [place] BEDTIME Medical INCREASE Branch TO 2 CAPSULES IN TWO WEEKS IF SYMPTOMS NOT IMPROVED nortriptyli 2020-1 Yes TAKE 1 Univ ers ne 10 mg 0-07 CAPSULE BY ity o f capsule 00:00: MOUTH AT [place] BEDTIME Medical INCREASE Branch TO 2 CAPSULES IN TWO WEEKS IF SYMPTOMS NOT IMPROVED nortriptyli 2020-1 Yes TAKE 1 Univ ers ne 10 mg 0-07 CAPSULE BY ity o f capsule 00:00: MOUTH AT [place] BEDTIME Medical INCREASE Branch TO 2 CAPSULES IN TWO WEEKS IF SYMPTOMS NOT IMPROVED nortriptyli 2020- Yes TAKE 1 Univ ers ne 10 mg 0-07 CAPSULE BY ity o f capsule 00:00: MOUTH AT [place] BEDTIME Medical INCREASE Branch TO 2 CAPSULES IN TWO WEEKS IF SYMPTOMS NOT IMPROVED nortriptyli 2020- Yes TAKE 1 Univ ers ne 10 mg 0-07 CAPSULE BY ity o f capsule 00:00: MOUTH AT [place] BEDTIME Medical INCREASE Branch TO 2 CAPSULES IN TWO WEEKS IF SYMPTOMS NOT IMPROVED nortriptyli 2020- Yes TAKE 1 Univ ers ne 10 mg 0-07 CAPSULE BY ity o f capsule 00:00: MOUTH AT [place] BEDTIME Medical INCREASE Branch TO 2 CAPSULES IN TWO WEEKS IF SYMPTOMS NOT IMPROVED nortriptyli 2020-1 Yes TAKE 1 Univ ers ne 10 mg 0-07 CAPSULE BY ity o f capsule 00:00: MOUTH AT [place] BEDTIME Medical INCREASE Branch TO 2 CAPSULES IN TWO WEEKS IF SYMPTOMS NOT IMPROVED nortriptyli 2020- Yes TAKE 1 Univ ers ne 10 mg 0-07 CAPSULE BY ity o f capsule 00:00: MOUTH AT [place] BEDTIME Medical INCREASE Branch TO 2 CAPSULES IN TWO WEEKS IF SYMPTOMS NOT IMPROVED nortriptyli 2020- Yes TAKE 1 Univ ers ne 10 mg 0-07 CAPSULE BY ity o f capsule 00:00: MOUTH AT [place] BEDTIME Medical INCREASE Branch TO 2 CAPSULES IN TWO WEEKS IF SYMPTOMS NOT IMPROVED nortriptyli 2020-1 Yes TAKE 1 Univ ers ne 10 mg 0-07 CAPSULE BY ity o f capsule 00:00: MOUTH AT [place] BEDTIME Medical INCREASE Branch TO 2 CAPSULES IN TWO WEEKS IF SYMPTOMS NOT IMPROVED nortriptyli 2020-1 Yes TAKE 1 Univ ers ne 10 mg 0-07 CAPSULE BY ity o f capsule 00:00: MOUTH AT [place] BEDTIME Medical INCREASE Branch TO 2 CAPSULES [...] ity o f capsule 00:00: MOUTH AT [place] 00 BEDTIME Medical INCREASE Branch TO 2 CAPSULES IN TWO WEEKS IF SYMPTOMS NOT IMPROVED nortriptyli 2020-1 Yes TAKE 1 Univ ers ne 10 mg 0-07 CAPSULE BY ity o f capsule 00:00: MOUTH AT [place] BEDTIME Medical INCREASE Branch TO 2 CAPSULES IN TWO WEEKS IF SYMPTOMS NOT IMPROVED nortriptyli 2020-1 Yes TAKE 1 Univ ers ne 10 mg 0-07 CAPSULE BY ity o f capsule 00:00: MOUTH AT [place] BEDTIME Medical INCREASE Branch TO 2 CAPSULES IN TWO WEEKS IF SYMPTOMS NOT IMPROVED nortriptyli 2020-1 Yes TAKE 1 Univ ers ne 10 mg 0-07 CAPSULE BY ity o f capsule 00:00: MOUTH AT [place] BEDTIME Medical INCREASE Branch TO 2 CAPSULES IN TWO WEEKS IF SYMPTOMS NOT IMPROVED doxycycline 2020-0 Yes [id number] 100mg Take 1 Univers monohydrate 8-25 capsule by it y of 100 mg 00:00: mouth 2 [place] capsule 00 (two) Medical times Branch daily. doxycycline 2020-0 Yes [id number] 100mg Take 1 Univers monohydrate 8-25 capsule by it y of 100 mg 00:00: mouth 2 [place] capsule 00 (two) Medical times Branch daily. doxycycline 2020-0 Yes [id number] 100mg Take 1 Univers monohydrate 8-25 capsule by it y of 100 mg 00:00: mouth 2 [place] capsule 00 (two) Medical times Branch daily. doxycycline 2020-0 Yes [id number] 100mg Take 1 Univers monohydrate 8-25 capsule by it y of 100 mg 00:00: mouth 2 [place] capsule 00 (two) Medical times Branch daily. doxycycline 2020-0 Yes [id number] 100mg Take 1 Univers monohydrate 8-25 capsule by it y of 100 mg 00:00: mouth 2 [place] capsule 00 (two) Medical times Branch daily. doxycycline 2020-0 Yes [id number] 100mg Take 1 Univers monohydrate 8-25 capsule by it y of 100 mg 00:00: mouth 2 [place] capsule 00 (two) Medical times Branch daily. doxycycline 2020-0 Yes [id number] 100mg Take 1 Univers monohydrate 8-25 capsule by it y of 100 mg 00:00: mouth 2 [place] capsule 00 (two) Medical times Branch daily. doxycycline 2020-0 2020- No [id number] 100mg Take 1 Univers monohydrate 8-25 10-20 capsule by i ty of 100 mg 00:00: 00:00 mouth 2 [place] capsule 00 :00 (two) Medical times Branch daily. doxycycline 2020-0 2020- No [id number] 100mg Take 1 Univers monohydrate 8-25 10-20 capsule by i ty of 100 mg 00:00: 00:00 mouth 2 [place] capsule 00 :00 (two) Medical times Branch daily. doxycycline 2020-0 2020- No [id number] 100mg Take 1 Univers monohydrate 8-25 10-20 capsule by i ty of 100 mg 00:00: 00:00 mouth 2 [place] capsule 00 :00 (two) Medical times Branch daily. traMADol 50 2020-0 Yes [id number] 50mg Take 1 Univers mg tablet 6-03 9107 tablet by ity o f 00:00: mouth [place] 00 every 6 Medical (six) Branch hours as needed for Pain (scale 4-6). traMADol 50 2020-0 Yes [id number] 50mg Take 1 Univers mg tablet 6-03 9107 tablet by ity o f 00:00: mouth [place] 00 every 6 Medical (six) Branch hours as needed for Pain (scale 4-6). traMADol 50 2020-0 Yes [id number] 50mg Take 1 Univers mg tablet 6-03 9107 tablet by ity o f 00:00: mouth [place] 00 every 6 Medical (six) Branch hours as needed for Pain (scale 4-6). traMADol 50 2020-0 Yes [id number] 50mg Take 1 Univers mg tablet 6-03 9107 tablet by ity o f 00:00: mouth [place] 00 every 6 Medical (six) Branch hours as needed for Pain (scale 4-6). traMADol 50 2020-0 Yes [id number] 50mg Take 1 Univers mg tablet 6-03 9107 tablet by ity o f 00:00: mouth [place] 00 every 6 Medical (six) Branch hours as needed for Pain (scale 4-6). traMADol 50 2020-0 Yes [id number] 50mg Take 1 Univers mg tablet 6-03 9107 tablet by ity o f 00:00: mouth [place] 00 every 6 Medical (six) Branch hours as needed for Pain (scale 4-6). traMADol 50 2020-0 Yes [id number] 50mg Take 1 Univers mg tablet 6- 9107 tablet by ity o f 00:00: mouth [place] 00 every 6 Medical (six) Branch hours as needed for Pain (scale 4-6). traMADol 50 2020-0 Yes [id number] 50mg Take 1 Univers mg tablet 6- 9107 tablet by ity o f 00:00: mouth [place] 00 every 6 Medical (six) Branch hours as needed for Pain (scale 4-6). traMADol 50 2020-0 Yes [id number] 50mg Take 1 Univers mg tablet 6- 9107 tablet by ity o f 00:00: mouth [place] 00 every 6 Medical (six) Branch hours as needed for Pain (scale 4-6). traMADol 50 2020-0 Yes [id number] 50mg Take 1 Univers mg tablet 6- 9107 tablet by ity o f 00:00: mouth [place] 00 every 6 Medical (six) Branch hours as needed for Pain (scale 4-6). traMADol 50 2020-0 Yes [id number] 50mg Take 1 Univers mg tablet 6- 9107 tablet by ity o f 00:00: mouth [place] 00 every 6 Medical (six) Branch hours as needed for Pain (scale 4-6). traMADol 50 2020-0 2020- No [id number] 50mg Take 1 Univers mg tablet 6-06-21 9107 tablet by ity of 00:00: 00:00 mouth [place] 00 :00 every 6 Medical (six) Branch hours as needed for Pain (scale 4-6). traMADol 50 2020-0 2020- No [id number] 50mg Take 1 Univers mg tablet 6- 10- 9107 tablet by ity of 00:00: 00:00 mouth [place] 00 :00 every 6 Medical (six) Branch hours as needed for Pain (scale 4-6). traMADol 50 2020-0 2020- No [id number] 50mg Take 1 Univers mg tablet 6- 10- 9107 tablet by ity of 00:00: 00:00 mouth [place] 00 :00 every 6 Medical (six) Branch hours as needed for Pain (scale 4-6). azithromyci 2020-0 Yes [id number] 250mg Take 1 Univers n 250 mg 4-06 tablet by ity of tablet 00:00: mouth [place] 00 daily. Medical Take 500 Branch mg day 1, then 250 mg days 2 to 5. azithromyci 2020-0 Yes [id number] 250mg Take 1 Univers n 250 mg 4-06 tablet by ity of tablet 00:00: mouth [place] 00 daily. Medical Take 500 Branch mg day 1, then 250 mg days 2 to 5. azithromyci 2020-0 Yes [id number] 250mg Take 1 Univers n 250 mg 4-06 tablet by ity of tablet 00:00: mouth [place] 00 daily. Medical Take 500 Branch mg day 1, then 250 mg days 2 to 5. azithromyci 2020-0 Yes [id number] 250mg Take 1 Univers n 250 mg 4-06 tablet by ity of tablet 00:00: mouth [place] 00 daily. Medical Take 500 Branch mg day 1, then 250 mg days 2 to 5. azithromyci 2020-0 Yes [id number] 250mg Take 1 Univers n 250 mg 4-06 tablet by ity of tablet 00:00: mouth [place] 00 daily. Medical Take 500 Branch mg day 1, then 250 mg days 2 to 5. azithromyci 2020-0 Yes [id number] 250mg Take 1 Univers n 250 mg 4-06 tablet by ity of tablet 00:00: mouth [place] 00 daily. Medical Take 500 Branch mg day 1, then 250 mg days 2 to 5. azithromyci 2020-0 Yes [id number] 250mg Take 1 Univers n 250 mg 4-06 tablet by ity of tablet 00:00: mouth [place] 00 daily. Medical Take 500 Branch mg day 1, then 250 mg days 2 to 5. azithromyci 2020-0 Yes [id number] 250mg Take 1 Univers n 250 mg 4-06 tablet by ity of tablet 00:00: mouth [place] 00 daily. Medical Take 500 Branch mg day 1, then 250 mg days 2 to 5. azithromyci 2020-0 Yes [id number] 250mg Take 1 Univers n 250 mg 4-06 tablet by ity of tablet 00:00: mouth [place] 00 daily. Medical Take 500 Branch mg day 1, then 250 mg days 2 to 5. azithromyci 2020-0 Yes [id number] 250mg Take 1 Univers n 250 mg 4-06 tablet by ity of tablet 00:00: mouth [place] 00 daily. Medical Take 500 Branch mg day 1, then 250 mg days 2 to 5. azithromyci 2020-0 Yes [id number] 250mg Take 1 Univers n 250 mg 4-06 tablet by ity of tablet 00:00: mouth [place] 00 daily. Medical Take 500 Branch mg day 1, then 250 mg days 2 to 5. azithromyci 2020-0 Yes [id number] 250mg Take 1 Univers n 250 mg 4-06 tablet by ity of tablet 00:00: mouth [place] 00 daily. Medical Take 500 Branch mg day 1, then 250 mg days 2 to 5. azithromyci 2020-0 Yes [id number] 250mg Take 1 Univers n 250 mg 4-06 tablet by ity of tablet 00:00: mouth [place] 00 daily. Medical Take 500 Branch mg day 1, then 250 mg days 2 to 5. azithromyci 2020-0 2019- No [id number] 250mg Take 1 Univers n 250 mg 4-06 10-20 tablet by ity o f tablet 00:00: 00:00 mouth [place] 00 :00 daily. Medical Take 500 Branch mg day 1, then 250 mg days 2 to 5. azithromyci 2020-0 2020- No [id number] 250mg Take 1 [facility] 250 mg 4-06 10-20 tablet by [facility] tablet 00:00: 00:00 mouth [place] 00 :00 daily. Medical Take 500 Branch mg day 1, then 250 mg days 2 to 5. azithromyci 2020-0 2019- No [id number] 250mg Take 1 [facility] 250 mg 4-06 10-20 tablet by [facility] tablet 00:00: 00:00 mouth [place] 00 :00 daily. Medical Take 500 Branch mg day 1, then 250 mg days 2 to 5. LISINOPRIL 2020-0 Yes [id number] TAKE 1 [facility] 10 mg 2-21 TABLET BY [facility] tablet 00:00: MOUTH ONCE [place] 00 DAILY Medical Branch LISINOPRIL 2020-0 Yes [id number] TAKE 1 [facility] 10 mg 2-21 TABLET BY [facility] tablet 00:00: MOUTH ONCE [place] 00 DAILY Medical Branch LISINOPRIL 2020-0 Yes [id number] TAKE 1 [facility] 10 mg 2-21 TABLET BY [facility] tablet 00:00: MOUTH ONCE DAILY Medical Branch LISINOPRIL 2020-0 Yes [id number] TAKE 1 [facility] 10 mg 2-21 TABLET BY [facility] tablet 00:00: MOUTH ONCE DAILY Medical Branch LISINOPRIL 2020-0 Yes [id number] TAKE 1 [facility] 10 mg 2-21 TABLET BY [facility] tablet 00:00: MOUTH ONCE DAILY [facility] LISINOPRIL 2020-0 Yes [id number] TAKE 1 [facility] 10 mg 2-21 TABLET BY [facility] tablet 00:00: MOUTH ONCE DAILY [facility] LISINOPRIL 2020-0 Yes [id number] TAKE 1 [facility] 10 mg 2-21 TABLET BY [facility] tablet 00:00: MOUTH ONCE DAILY [facility] LISINOPRIL 2020-0 Yes [id number] TAKE 1 [facility] 10 mg 2-21 TABLET BY [facility] tablet 00:00: MOUTH ONCE DAILY [facility] LISINOPRIL 2020-0 Yes [id number] TAKE 1 [facility] 10 mg 2-21 TABLET BY [facility] tablet 00:00: MOUTH ONCE DAILY [facility] LISINOPRIL 2020-0 Yes [id number] TAKE 1 [facility] 10 mg 2-21 TABLET BY [facility] tablet 00:00: MOUTH ONCE DAILY [facility] LISINOPRIL 2020-0 Yes [id number] TAKE 1 [facility] 10 mg 2-21 TABLET BY [facility] tablet 00:00: MOUTH ONCE DAILY [facility] LISINOPRIL 2020-0 Yes [id number] TAKE 1 [facility] 10 mg 2-21 TABLET BY [facility] tablet 00:00: MOUTH ONCE DAILY [facility] Branch LISINOPRIL 2020-0 Yes [id number] TAKE 1 [facility] 10 mg 2-21 TABLET BY [facility] tablet 00:00: MOUTH ONCE DAILY [facility] LISINOPRIL 2020-0 Yes [id number] TAKE 1 [facility] 10 mg 2-21 TABLET BY [facility] tablet 00:00: MOUTH ONCE DAILY [facility] LISINOPRIL 2020-0 Yes [id number] TAKE 1 [facility] 10 mg 2-21 TABLET BY [facility] tablet 00:00: MOUTH ONCE DAILY [facility] LISINOPRIL 2020-0 Yes [id number] TAKE 1 [facility] 10 mg 2-21 TABLET BY [facility] tablet 00:00: MOUTH ONCE [place] 00 DAILY Medical Branch LISINOPRIL 2019-0 2020- No [id number] TAKE 1 [facility] 10 mg 2-21 10-20 TABLET BY [facility] tablet 00:00: 00:[place] :[place] DA[place] [facility] LISINOPRIL 2019-0 2020- No [id number] TAKE 1 [facility] 10 mg 2-21 10-20 TABLET BY [facility] tablet 00:00: 00:[place]CE [place] 00 :[place] DAILY [facility] LISINOPRIL 2019-0 2020- No [id number] TAKE 1 [facility] 10 mg 2-21 10-20 TABLET BY [facility] tablet 00:00: 00:[place]CE [place] 00 :[place] DAILY [facility] lisinopril Yes [id number] 10mg Take 1 [facility] 10 mg 8-08 tablet by [facility] tablet 00:00: mouth [place] 00 daily. Medical [facility] lisinopril 2018- 2020- No [id number] 10mg Take 1 [facility] 10 mg 8-08 02-21 tablet by [facility] tablet 00:00: 00:00 mouth [place] 00 :00 daily. Medical Branch metroNIDAZO Yes [id number] 500mg Take 1 [facility] 500 mg 5-24 tablet by [facility] f tablet 00:00: mouth [place] 00 every 12 Medical (twelve) Branch hours. metroNIDAZO Yes [id number] 500mg Take 1 [facility] 500 mg 5-24 tablet by [facility] f tablet 00:00: mouth [place] 00 every 12 Medical (twelve) Branch hours. metroNIDAZO Yes [id number] 500mg Take 1 [facility] 500 mg 5-24 tablet by [facility] f tablet 00:00: mouth [place] 00 every 12 Medical (twelve) Branch hours. metroNIDAZO Yes [id number] 500mg Take 1 [facility] 500 mg 5-24 tablet by [facility] o f tablet 00:00: mouth [place] 00 every 12 Medical (twelve) Branch hours. metroNIDAZO Yes [id number] 500mg Take 1 [facility] 500 mg 5-24 tablet by [facility] f tablet 00:00: mouth [place] 00 every 12 Medical (twelve) Branch hours. metroNIDAZO Yes [id number] 500mg Take 1 [facility] 500 mg 5-24 tablet by [facility] f tablet 00:00: mouth [place] 00 every 12 Medical (twelve) Branch hours. metroNIDAZO 2019-0 Yes [id number] 500mg Take 1 [facility] 500 mg 5-24 tablet by [facility] o f tablet 00:00: mouth [place] 00 every 12 Medical (twelve) Branch hours. metroNIDAZO 2019-0 Yes [id number] 500mg Take 1 [facility] 500 mg 5-24 tablet by [facility] tablet 00:00: mouth [place] 00 every 12 Medical (twelve) Branch hours. metroNIDAZO 2018-0 Yes [id number] 500mg Take 1 [facility] 500 mg 5-24 tablet by [facility] o f tablet 00:00: mouth [place] 00 every 12 Medical (twelve) Branch hours. metroNIDAZO 2019-0 Yes [id number] 500mg Take 1 [facility] 500 mg 5-24 tablet by [facility] o f tablet 00:00: mouth [place] 00 every 12 Medical (twelve) Branch hours. metroNIDAZO 2018-0 Yes [id number] 500mg Take 1 [facility] 500 mg 5-24 tablet by [facility] o f tablet 00:00: mouth [place] 00 every 12 Medical (twelve) Branch hours. metroNIDAZO 2018-0 Yes [id number] 500mg Take 1 [facility] 500 mg 5-24 tablet by [facility] f tablet 00:00: mouth [place] 00 every 12 Medical (twelve) Branch hours. metroNIDAZO 2019-0 Yes [id number] 500mg Take 1 [facility] 500 mg 5-24 tablet by [facility] f tablet 00:00: mouth [place] 00 every 12 Medical (twelve) Branch hours. metroNIDAZO 2019-0 Yes [id number] 500mg Take 1 [facility] 500 mg 5-24 tablet by [facility] f tablet 00:00: mouth [place] 00 every 12 Medical (twelve) Branch hours. metroNIDAZO 2019-0 Yes [id number] 500mg Take 1 [facility] 500 mg 5-24 tablet by [facility] o f tablet 00:00: mouth [place] 00 every 12 Medical (twelve) Branch hours. metroNIDAZO 2019-0 Yes [id number] 500mg Take 1 [facility] 500 mg 5-24 tablet by [facility] o f tablet 00:00: mouth [place] 00 every 12 Medical (twelve) Branch hours. metroNIDAZO 2019-0 Yes [id number] 500mg Take 1 [facility] 500 mg 5-24 tablet by [facility] o f tablet 00:00: mouth [place] 00 every 12 Medical (twelve) Branch hours. metroNIDAZO 2019-0 Yes [id number] 500mg Take 1 [facility] 500 mg 5-24 tablet by [facility] o f tablet 00:00: mouth [place] 00 every 12 Medical (twelve) Branch hours. metroNIDAZO 2018- 2020- No [id number] 500mg Take 1 [facility] 500 mg 5-24 10-20 tablet by [facility] tablet 00:00: 00:00 mouth [place] 00 :00 every 12 Medical (twelve) Branch hours. metroNIDAZO 2018-0 2020- No [id number] 500mg Take 1 [facility] 500 mg 5-24 10-20 tablet by [facility] tablet 00:00: 00:00 mouth [place] 00 :00 every 12 Medical (twelve) Branch hours. metroNIDAZO 2018- 2020- No [id number] 500mg Take 1 [facility] 500 mg 5-24 10-20 tablet by [facility] tablet 00:00: 00:00 mouth [place] 00 :00 every 12 Medical (twelve) Branch hours. METFORMIN 2019-0 Yes [id number] TAKE 1 [facility] 1,000 mg 4-22 TABLET BY [facility] tablet 00:00: MOUTH [place] 00 TWICE Medical DAILY WITH Branch MEALS METFORMIN 2019-0 Yes [id number] TAKE 1 [facility] 1,000 mg 4-22 TABLET BY [facility] tablet 00:00: MOUTH [place] 00 TWICE Medical DAILY WITH Branch MEALS METFORMIN 2019-0 Yes [id number] TAKE 1 [facility] 1,000 mg 4-22 TABLET BY [facility] tablet 00:00: MOUTH [place] 00 TWICE Medical DAILY WITH Branch MEALS METFORMIN 2019-0 Yes [id number] TAKE 1 [facility] 1,000 mg 4-22 TABLET BY [facility] tablet 00:00: MOUTH [place] 00 TWICE Medical DAILY WITH Branch MEALS METFORMIN 2019-0 Yes [id number] TAKE 1 [facility] 1,000 mg 4-22 TABLET BY [facility] tablet 00:00: MOUTH [place] 00 TWICE Medical DAILY WITH Branch MEALS METFORMIN 2019-0 Yes [id number] TAKE 1 [facility] 1,000 mg 4-22 TABLET BY [facility] tablet 00:00: MOUTH [place] 00 TWICE Medical DAILY WITH Branch MEALS METFORMIN 2019-0 Yes [id number] TAKE 1 [facility] 1,000 mg 4-22 TABLET BY [facility] tablet 00:00: MOUTH [place] 00 TWICE Medical DAILY WITH Branch MEALS METFORMIN 2019-0 Yes [id number] TAKE 1 [facility] 1,000 mg 4-22 TABLET BY [facility] tablet 00:00: MOUTH [place] 00 TWICE Medical DAILY WITH Branch MEALS METFORMIN 2019-0 Yes [id number] TAKE 1 [facility] 1,000 mg 4-22 TABLET BY [facility] tablet 00:00: MOUTH [place] 00 TWICE Medical DAILY WITH Branch MEALS METFORMIN 2019-0 Yes [id number] TAKE 1 [facility] 1,000 mg 4-22 TABLET BY [facility] tablet 00:00: MOUTH 00 TWICE Medical DAILY WITH Branch MEALS METFORMIN 2019-0 Yes [id number] TAKE 1 [facility] 1,000 mg 4-22 TABLET BY [facility] tablet 00:00: MOUTH 00 TWICE Medical DAILY WITH Branch MEALS METFORMIN 2019-0 Yes [id number] TAKE 1 [facility] 1,000 mg 4-22 TABLET BY [facility] tablet 00:00: MOUTH 00 TWICE Medical DAILY WITH Branch MEALS METFORMIN 2019-0 Yes [id number] TAKE 1 [facility] 1,000 mg 4-22 TABLET BY [facility] tablet 00:00: MOUTH 00 TWICE Medical DAILY WITH Branch MEALS METFORMIN 2019-0 Yes [id number] TAKE 1 [facility] 1,000 mg 4-22 TABLET BY [facility] tablet 00:00: MOUTH 00 TWICE Medical DAILY WITH Branch MEALS METFORMIN 2019-0 Yes [id number] TAKE 1 [facility] 1,000 mg 4-22 TABLET BY [facility] tablet 00:00: MOUTH 00 TWICE Medical DAILY WITH Branch MEALS METFORMIN 2019-0 Yes [id number] TAKE 1 [facility] 1,000 mg 4-22 TABLET BY [facility] tablet 00:00: MOUTH 00 TWICE Medical DAILY WITH Branch MEALS METFORMIN 2019-0 Yes [id number] TAKE 1 [facility] 1,000 mg 4-22 TABLET BY [facility] tablet 00:00: MOUTH 00 TWICE Medical DAILY WITH Branch MEALS METFORMIN 2019-0 Yes [id number] TAKE 1 [facility] 1,000 mg 4-22 TABLET BY [facility] tablet 00:00: MOUTH 00 TWICE Medical DAILY WITH Branch MEALS METFORMIN 2019-0 Yes [id number] TAKE 1 [facility] 1,000 mg 4-22 TABLET BY [facility] tablet 00:00: MOUTH 00 TWICE Medical DAILY WITH Branch MEALS METFORMIN 2019-0 Yes [id number] TAKE 1 [facility] 1,000 mg 4-22 TABLET BY [facility] tablet 00:00: MOUTH [place] 00 TWICE Medical DAILY WITH Branch MEALS METFORMIN 2019-0 Yes [id number] TAKE 1 [facility] 1,000 mg 4-22 TABLET BY [facility] tablet 00:00: MOUTH 00 TWICE Medical DAILY WITH Branch MEALS METFORMIN 2019-0 Yes [id number] TAKE 1 [facility] 1,000 mg 4-22 TABLET BY [facility] tablet 00:00: MOUTH 00 TWICE Medical DAILY WITH Branch MEALS METFORMIN 2019-0 Yes [id number] TAKE 1 [facility] 1,000 mg 4-22 TABLET BY [facility] tablet 00:00: MOUTH 00 TWICE Medical DAILY WITH Branch MEALS METFORMIN 2019-0 Yes [id number] TAKE 1 [facility] 1,000 mg 4-22 TABLET BY [facility] tablet 00:00: MOUTH 00 TWICE Medical DAILY WITH Branch MEALS METFORMIN 2019-0 Yes [id number] TAKE 1 [facility] 1,000 mg 4-22 TABLET BY [facility] tablet 00:00: MOUTH 00 TWICE Medical DAILY WITH Branch MEALS METFORMIN 2019-0 Yes [id number] TAKE 1 [facility] 1,000 mg 4-22 TABLET BY [facility] tablet 00:00: MOUTH 00 TWICE Medical DAILY WITH Branch MEALS METFORMIN 2019-0 Yes [id number] TAKE 1 [facility] 1,000 mg 4-22 TABLET BY [facility] tablet 00:00: MOUTH 00 TWICE Medical DAILY WITH Branch MEALS METFORMIN 2019-0 Yes [id number] TAKE 1 [facility] 1,000 mg 4-22 TABLET BY [facility] tablet 00:00: MOUTH 00 TWICE Medical DAILY WITH Branch MEALS METFORMIN 2019-0 Yes [id number] TAKE 1 [facility] 1,000 mg 4-22 TABLET BY [facility] tablet 00:00: MOUTH 00 TWICE Medical DAILY WITH Branch MEALS METFORMIN 2019-0 Yes [id number] TAKE 1 [facility] 1,000 mg 4-22 TABLET BY [facility] tablet 00:00: MOUTH 00 TWICE Medical DAILY WITH Branch MEALS METFORMIN 2019-0 Yes [id number] TAKE 1 [facility] 1,000 mg 4-22 TABLET BY [facility] tablet 00:00: MOUTH 00 TWICE Medical DAILY WITH Branch MEALS METFORMIN 2019-0 Yes [id number] TAKE 1 [facility] 1,000 mg 4-22 TABLET BY [facility] tablet 00:00: MOUTH 00 TWICE Medical DAILY WITH Branch MEALS METFORMIN 2019-0 Yes [id number] TAKE 1 [facility] 1,000 mg 4-22 TABLET BY [facility] tablet 00:00: MOUTH [place] 00 TWICE Medical DAILY WITH Branch MEALS METFORMIN 2019-0 Yes [id number] TAKE 1 [facility] 1,000 mg 4-22 TABLET BY [facility] tablet 00:00: MOUTH [place] 00 TWICE Medical DAILY WITH Branch MEALS METFORMIN 2019-0 Yes [id number] TAKE 1 [facility] 1,000 mg 4-22 TABLET BY [facility] tablet 00:00: MOUTH [place] 00 TWICE Medical DAILY WITH Branch MEALS METFORMIN 2019-0 Yes [id number] TAKE 1 [facility] 1,000 mg 4-22 TABLET BY [facility] tablet 00:00: MOUTH [place] 00 TWICE Medical DAILY WITH Branch MEALS METFORMIN 2019-0 Yes [id number] TAKE 1 [facility] 1,000 mg 4-22 TABLET BY [facility] tablet 00:00: MOUTH 00 TWICE Medical DAILY WITH Branch MEALS METFORMIN 2019-0 Yes [id number] TAKE 1 [facility] 1,000 mg 4-22 TABLET BY [facility] tablet 00:00: MOUTH 00 TWICE Medical DAILY WITH Branch MEALS METFORMIN 2019-0 Yes [id number] TAKE 1 [facility] 1,000 mg 4-22 TABLET BY [facility] tablet 00:00: MOUTH 00 TWICE Medical DAILY WITH Branch MEALS METFORMIN 2019-0 Yes [id number] TAKE 1 [facility] 1,000 mg 4-22 TABLET BY [facility] tablet 00:00: MOUTH 00 TWICE Medical DAILY WITH Branch MEALS METFORMIN 2019-0 Yes [id number] TAKE 1 [facility] 1,000 mg 4-22 TABLET BY [facility] tablet 00:00: MOUTH [place] 00 TWICE Medical DAILY WITH Branch MEALS METFORMIN 2019-0 Yes [id number] TAKE 1 [facility] 1,000 mg 4-22 TABLET BY [facility] tablet 00:00: MOUTH [place] 00 TWICE Medical DAILY WITH Branch MEALS METFORMIN 2019-0 Yes [id number] TAKE 1 [facility] 1,000 mg 4-22 TABLET BY [facility] tablet 00:00: MOUTH 00 TWICE Medical DAILY WITH Branch MEALS METFORMIN 2019-0 Yes [id number] TAKE 1 [facility] 1,000 mg 4-22 TABLET BY [facility] tablet 00:00: MOUTH [place] 00 TWICE Medical DAILY WITH Branch MEALS METFORMIN 2019-0 Yes [id number] TAKE 1 [facility] 1,000 mg 4-22 TABLET BY [facility] of tablet 00:00: MOUTH 00 TWICE Medical DAILY WITH Branch MEALS METFORMIN 2019-0 Yes [id number] TAKE 1 [facility] 1,000 mg 4-22 TABLET BY [facility] tablet 00:00: MOUTH 00 TWICE Medical DAILY WITH Branch MEALS METFORMIN 2019-0 Yes [id number] TAKE 1 [facility] 1,000 mg 4-22 TABLET BY [facility] of tablet 00:00: MOUTH 00 TWICE Medical DAILY WITH Branch MEALS METFORMIN 2019-0 Yes [id number] TAKE 1 [facility] 1,000 mg 4-22 TABLET BY [facility] of tablet 00:00: MOUTH 00 TWICE Medical DAILY WITH Branch MEALS METFORMIN 2019-0 Yes [id number] TAKE 1 [facility] 1,000 mg 4-22 [...] by [facility] of tablet 00:00: mouth 2 (two) Medical times Branch daily. topiramate 2019-0 Yes 50mg Take 1 [facility] 50 mg 1-28 tablet by [facility] of tablet 00:00: mouth 2 (two) Medical times Branch daily. topiramate 2019-0 Yes 50mg Take 1 [facility] 50 mg 1-28 tablet by [facility] of tablet 00:00: mouth 2 (two) Medical times Branch daily. topiramate 2019-0 [...] by [facility] of tablet 00:00: mouth 2 (two) Medical times Branch daily. topiramate 2019-0 Yes 50mg Take 1 [facility] 50 mg 1-28 tablet by [facility] of tablet 00:00: mouth 2 [place] (two) Medical times Branch daily. topiramate 2019-0 Yes 50mg Take 1 [facility] 50 mg 1-28 tablet by [facility] of tablet 00:00: mouth [place] (two) Medical times Branch daily. topiramate 2019-0 Yes 50mg Take 1 [facility] 50 mg 1-28 tablet by [facility] of tablet 00:00: mouth [place] (two) Medical times Branch daily. topiramate 2019-0 Yes 50mg Take 1 [facility] 50 mg 1-28 tablet by [facility] of tablet 00:00: mouth [place] (two) Medical times Branch daily. topiramate 2019-0 Yes 50mg Take 1 [facility] 50 mg 1-28 tablet by [facility] of tablet 00:00: mouth [place] (two) Medical times Branch daily. topiramate 2019-0 Yes 50mg Take 1 [facility] 50 mg 1-28 tablet by [facility] of tablet 00:00: mouth 2 [place] (two) Medical times Branch daily. topiramate 2019-0 2020- No 50mg Take 1 [facility] 50 mg 1-28 10-20 tablet by [facility] of tablet 00:00: 00:00 mouth 2 [place] 00 :00 (two) Medical times Branch daily. topiramate 2019-0 2020- No 50mg Take 1 [facility] 50 mg 1-28 10-20 tablet by [facility] of tablet 00:00: 00:00 mouth 2 [place] 00 :00 (two) Medical times Branch daily. topiramate 2019-0 2020- No 50mg Take 1 [facility] 50 mg 1-28 10-20 tablet by [facility] of tablet 00:00: 00:00 mouth 2 [place] 00 :00 (two) Medical times Branch daily. LISINOPRIL 2017-09 Yes [id number] TAKE ONE [facility] 10 mg 2-17 TABLET BY [facility] of tablet 00:00: MOUTH ONCE [place] 00 DAILY Medical Branch LISINOPRIL 2017-09 2019- No [id number] TAKE ONE [facility] 10 mg 2-17 08-07 TABLET BY [facility] tablet 00:00: 00:00 MOUTH [place]CE [place] 00 :[place] DAILY [facility] Fenofibrate 2017-09 Yes [id number] 160mg Take 1 [facility] 160 mg 0-23 tablet by [facility] of tablet 00:00: mouth [place] 00 daily. Medical Branch pioglitazon 2017-09 Yes [id number] 15mg Take 1 [facility] e 15 mg 0-23 tablet by [facility] of tablet 00:00: mouth [place] 00 daily. Medical Branch Fenofibrate 2017-09 Yes [id number] 160mg Take 1 [facility] 160 mg 0-23 tablet by [facility] of tablet 00:00: mouth [place] 00 daily. Medical Branch pioglitazon 2017-09 Yes [id number] 15mg Take 1 [facility] e 15 mg 0-23 tablet by [facility] of tablet 00:00: mouth [place] 00 daily. Medical Branch Fenofibrate 2017-09 Yes [id number] 160mg Take 1 [facility] 160 mg 0-23 tablet by [facility] of tablet 00:00: mouth [place] 00 daily. Medical Branch pioglitazon 2017-09 Yes [id number] 15mg Take 1 [facility] e 15 mg 0-23 tablet by [facility] of tablet 00:00: mouth [place] 00 daily. Medical Branch Fenofibrate 2017-09 Yes [id number] 160mg Take 1 [facility] 160 mg 0-23 tablet by [facility] of tablet 00:00: mouth [place] 00 daily. Medical Branch pioglitazon 2017-09 Yes [id number] 15mg Take 1 [facility] e 15 mg 0-23 tablet by [facility] of tablet 00:00: mouth [place] 00 daily. Medical Branch Fenofibrate 2017-09 Yes [id number] 160mg Take 1 [facility] 160 mg 0-23 tablet by [facility] of tablet 00:00: mouth [place] 00 daily. Medical Branch pioglitazon 2017-09 Yes [id number] 15mg Take 1 [facility] e 15 mg 0-23 tablet by [facility]y of tablet 00:00: mouth [place] 00 daily. [facility] Fenofibrate 2017-09 Yes [id number] 160mg Take 1 [facility] 160 mg 0-23 tablet by ity of tablet 00:00: mouth [place] 00 daily. [facility] pioglitazon 2017-09 Yes [id number] 15mg Take 1 [facility] e 15 mg 0-23 tablet by ity of tablet 00:00: mouth [place] 00 daily. [facility] Fenofibrate 2017-09 Yes [id number] 160mg Take 1 [facility] 160 mg 0-23 tablet by [facility]y of tablet 00:00: mouth [place] 00 daily. [facility] pioglitazon 2017-09 Yes [id number] 15mg Take 1 [facility] e 15 mg 0-23 tablet by [facility]y of tablet 00:00: mouth [place] 00 daily. [facility] Fenofibrate 2017-09 Yes [id number] 160mg Take 1 [facility] 160 mg 0-23 tablet by [facility] of tablet 00:00: mouth [place] 00 daily. [facility] pioglitazon 2017-09 Yes [id number] 15mg Take 1 [facility] e 15 mg 0-23 tablet by [facility]y of tablet 00:00: mouth [place] 00 daily. [facility] Fenofibrate 2017-09 Yes [id number] 160mg Take 1 [facility] 160 mg 0-23 tablet by [facility]y of tablet 00:00: mouth [place] 00 daily. [facility] pioglitazon 2017-09 Yes [id number] 15mg Take 1 [facility] e 15 mg 0-23 tablet by [facility] of tablet 00:00: mouth [place] 00 daily. [facility] Fenofibrate 2017-09 Yes [id number] 160mg Take 1 [facility] 160 mg 0-23 tablet by [facility] of tablet 00:00: mouth [place] 00 daily. [facility] pioglitazon 2017-09 Yes [id number] 15mg Take 1 [facility] e 15 mg 0-23 tablet by [facility]y of tablet 00:00: mouth [place] 00 daily. [facility] Fenofibrate 2017-09 Yes [id number] 160mg Take 1 [facility] 160 mg 0-23 tablet by [facility] of tablet 00:00: mouth [place] 00 daily. [facility] pioglitazon 2017-09 Yes [id number] 15mg Take 1 [facility] e 15 mg 0-23 tablet by [facility]y of tablet 00:00: mouth [place] 00 daily. [facility] Fenofibrate 2017-09 Yes [id number] 160mg Take 1 [facility] 160 mg 0-23 tablet by [facility]y of tablet 00:00: mouth [place] 00 daily. [facility] pioglitazon 2017-09 Yes [id number] 15mg Take 1 [facility] e 15 mg 0-23 tablet by [facility]y of tablet 00:00: mouth [place] 00 daily. [facility] Fenofibrate 2017-09 Yes [id number] 160mg Take 1 [facility] 160 mg 0-23 tablet by [facility]y of tablet 00:00: mouth [place] 00 daily. [facility] pioglitazon 2017-09 Yes [id number] 15mg Take 1 [facility] e 15 mg 0-23 tablet by [facility]y of tablet 00:00: mouth [place] 00 daily. [facility] Fenofibrate 2017-09 Yes [id number] 160mg Take 1 [facility] 160 mg 0-23 tablet by [facility] of tablet 00:00: mouth [place] 00 daily. [facility] pioglitazon 2017-09 Yes [id number] 15mg Take 1 [facility] e 15 mg 0-23 tablet by [facility]y of tablet 00:00: mouth [place] 00 daily. [facility] Fenofibrate 2017-09 Yes [id number] 160mg Take 1 [facility] 160 mg 0-23 tablet by [facility]y of tablet 00:00: mouth [place] 00 daily. [facility] pioglitazon 2017-09 Yes [id number] 15mg Take 1 [facility] e 15 mg 0-23 tablet by [facility] of tablet 00:00: mouth [place] 00 daily. [facility] Fenofibrate 2017-09 Yes [id number] 160mg Take 1 [facility] 160 mg 0-23 tablet by [facility] of tablet 00:00: mouth [place] 00 daily. [facility] Branch pioglitazon 2017-09 Yes [id number] 15mg Take 1 [facility] e 15 mg 0-23 tablet by [facility]y of tablet 00:00: mouth [place] 00 daily. [facility] Fenofibrate 2017-09 Yes [id number] 160mg Take 1 [facility] 160 mg 0-23 tablet by [facility] of tablet 00:00: mouth [place] 00 daily. [facility] pioglitazon 2017-09 Yes [id number] 15mg Take 1 [facility] e 15 mg 0-23 tablet by [facility]y of tablet 00:00: mouth [place] 00 daily. [facility] Fenofibrate 2017-09 Yes [id number] 160mg Take 1 [facility] 160 mg 0-23 tablet by [facility] of tablet 00:00: mouth [place] 00 daily. [facility] Branch pioglitazon 2017-09 Yes [id number] 15mg Take 1 [facility] e 15 mg 0-23 tablet by [facility]y of tablet 00:00: mouth [place] 00 daily. [facility] Fenofibrate 2017-09 2020- No [id number] 160mg Take 1 [facility] 160 mg 0-23 10-20 tablet by [facility] of tablet 00:00: 00:00 mouth [place] 00 :00 daily. [facility] pioglitazon 2017-09 2020- No [id number] 15mg Take 1 [facility] e 15 mg 0-23 10-20 tablet by [facility]y of tablet 00:00: 00:00 mouth [place] 00 :00 daily. [facility] Fenofibrate 2017-09 2020- No [id number] 160mg Take 1 [facility] 160 mg 0-23 10-20 tablet by [facility]y of tablet 00:00: 00:00 mouth [place] 00 :00 daily. [facility] pioglitazon 2017-09 2020- No [id number] 15mg Take 1 [facility] e 15 mg 0-23 10-20 tablet by [facility] of tablet 00:00: 00:00 mouth [place] 00 :00 daily. [facility] Fenofibrate 2017-09 2020- No [id number] 160mg Take 1 [facility] 160 mg 0-23 10-20 tablet by [facility]y of tablet 00:00: 00:00 mouth [place] 00 :00 daily. [facility] pioglitazon 2017-09 2020- No [id number] 15mg Take 1 [facility] e 15 mg 0-23 10-20 tablet by [facility] of tablet 00:00: 00:00 mouth [place] 00 :00 daily. [facility] Branch GLIPIZIDE 2017-09 Yes [id number] TAKE ONE [facility] 10 mg 0-15 TABLET BY [facility]y of tablet 00:00: MOUTH [place] 00 TWICE Medical DAILY Branch BEFORE BREAKFAST AND DINNER GLIPIZIDE 2017-09 Yes [id number] TAKE ONE [facility] 10 mg 0-15 TABLET BY ity of tablet 00:00: MOUTH [place] 00 TWICE Medical DAILY Branch BEFORE BREAKFAST AND DINNER GLIPIZIDE 2017-09 Yes [id number] TAKE ONE [facility] 10 mg 0-15 TABLET BY [facility]y of tablet 00:00: MOUTH [place] 00 TWICE Medical DAILY Branch BEFORE BREAKFAST AND DINNER GLIPIZIDE 2017-09 Yes [id number] TAKE ONE [facility] 10 mg 0-15 TABLET BY [facility] of tablet 00:00: MOUTH [place] 00 TWICE Medical DAILY Branch BEFORE BREAKFAST AND DINNER GLIPIZIDE 2017-09 Yes [id number] TAKE ONE [facility] 10 mg 0-15 TABLET BY [facility] of tablet 00:00: MOUTH [place] 00 TWICE Medical DAILY Branch BEFORE BREAKFAST AND DINNER GLIPIZIDE 2017-09 Yes [id number] TAKE ONE [facility] 10 mg 0-15 TABLET BY [facility] of tablet 00:00: MOUTH [place] 00 TWICE Medical DAILY Branch BEFORE BREAKFAST AND DINNER GLIPIZIDE 2017-09 Yes [id number] TAKE ONE [facility] 10 mg 0-15 TABLET BY [facility] of tablet 00:00: MOUTH [place] 00 TWICE Medical DAILY Branch BEFORE BREAKFAST AND DINNER GLIPIZIDE 2017-09 Yes [id number] TAKE ONE [facility] 10 mg 0-15 TABLET BY [facility] of tablet 00:00: MOUTH [place] 00 TWICE Medical DAILY Branch BEFORE BREAKFAST AND DINNER GLIPIZIDE 2017-09 Yes [id number] TAKE ONE [facility] 10 mg 0-15 TABLET BY [facility] of tablet 00:00: MOUTH [place] 00 TWICE Medical DAILY Branch BEFORE BREAKFAST AND DINNER GLIPIZIDE 2017-09 Yes [id number] TAKE ONE [facility] 10 mg 0-15 TABLET BY [facility] of tablet 00:00: MOUTH [place] 00 TWICE Medical DAILY Branch BEFORE BREAKFAST AND DINNER GLIPIZIDE 2017-09 Yes [id number] TAKE ONE [facility] 10 mg 0-15 TABLET BY [facility] of tablet 00:00: MOUTH [place] 00 TWICE Medical DAILY Branch BEFORE BREAKFAST AND DINNER GLIPIZIDE 2017-09 Yes [id number] TAKE ONE [facility] 10 mg 0-15 TABLET BY [facility] of tablet 00:00: MOUTH [place] 00 TWICE Medical DAILY Branch BEFORE BREAKFAST AND DINNER GLIPIZIDE 2017-09 Yes [id number] TAKE ONE [facility] 10 mg 0-15 TABLET BY [facility] of tablet 00:00: MOUTH [place] 00 TWICE Medical DAILY Branch BEFORE BREAKFAST AND DINNER GLIPIZIDE 2017-09 Yes [id number] TAKE ONE [facility] 10 mg 0-15 TABLET BY [facility] of tablet 00:00: MOUTH [place] 00 TWICE Medical DAILY Branch BEFORE BREAKFAST AND DINNER GLIPIZIDE 2017-09 Yes [id number] TAKE ONE [facility] 10 mg 0-15 TABLET BY ity of tablet 00:00: MOUTH [place] 00 TWICE Medical DAILY Branch BEFORE BREAKFAST AND DINNER GLIPIZIDE 2017-09 Yes [id number] TAKE ONE [facility] 10 mg 0-15 TABLET BY ity of tablet 00:00: MOUTH [place] 00 TWICE Medical DAILY Branch BEFORE BREAKFAST AND DINNER GLIPIZIDE 2017-09 Yes [id number] TAKE ONE [facility] 10 mg 0-15 TABLET BY ity of tablet 00:00: MOUTH [place] 00 TWICE Medical DAILY Branch BEFORE BREAKFAST AND DINNER GLIPIZIDE 2017-09 Yes [id number] TAKE ONE [facility] 10 mg 0-15 TABLET BY ity of tablet 00:00: MOUTH [place] 00 TWICE Medical DAILY Branch BEFORE BREAKFAST AND DINNER GLIPIZIDE 2017-09 2020- No [id number] TAKE ONE Univers 10 mg 0-15 10-20 TABLET BY ity of tablet 00:00: 00:00 MOUTH [place] 00 :00 TWICE Medical DAILY Branch BEFORE BREAKFAST AND DINNER GLIPIZIDE 2017-09 2020- No [id number] TAKE ONE [facility] 10 mg 0-15 10-20 TABLET BY ity of tablet 00:00: 00:00 MOUTH [place] 00 :00 TWICE Medical DAILY Branch BEFORE BREAKFAST AND DINNER GLIPIZIDE 2017-09 2020- No [id number] TAKE ONE [facility] 10 mg 0-15 10-20 TABLET BY ity of tablet 00:00: 00:00 MOUTH [place] 00 :00 TWICE Medical DAILY Branch BEFORE [facility]FAST [facility] Yes [id number] TAKE ONE [facility] N 20 mg 9-17 TABLET BY ity of tablet 00:00: MOUTH ONCE 00 DAILY AT [facility] BEDTIME [place] [facility]-0 Yes [id number] TAKE ONE [facility] N 20 mg 9-17 TABLET BY ity of tablet 00:00: [facility] [place] [facility] Yes [id number] TAKE ONE [facility] N 20 mg 9-17 TABLET BY ity of tablet 00:00: [facility] [place] [facility] Yes [id number] TAKE ONE [facility] N 20 mg 9-17 TABLET BY ity of tablet 00:00: MOUTH ONCE 00 DAILY AT [facility] BEDTIME [place] [facility] 2018-0 Yes [id number] TAKE ONE [facility] N 20 mg 9-17 TABLET BY ity of tablet 00:00: MOUTH ONCE 00 DAILY AT [facility] BEDTIME [place] [facility] 2018-0 Yes [id number] TAKE ONE [facility] N 20 mg 9-17 TABLET BY ity of tablet 00:00: MOUTH ONCE 00 DAILY AT [facility] BEDTIME [place] [facility] 2018[facility]0 Yes [id number] TAKE ONE [facility] N 20 mg 9-17 TABLET BY ity of tablet 00:00: MOUTH ONCE [place] 00 DAILY AT [facility] BEDTIME [place] [facility] 2018-0 Yes [id number] TAKE ONE [facility] N 20 mg 9-17 TABLET BY ity of tablet 00:00: MOUTH ONCE 00 DAILY AT [facility] 0 Yes [id number] TAKE ONE [facility] N 20 mg 9-17 TABLET BY ity of tablet 00:00: MOUTH ONCE DAILY AT [facility] Yes [id number] TAKE ONE [facility] N 20 mg 9-17 TABLET BY ity of tablet 00:00: MOUTH ONCE [place] DAILY AT [facility] 0 Yes [id number] TAKE ONE [facility] N 20 mg 9-17 TABLET BY ity of tablet 00:00: MOUTH ONCE DAILY AT [facility] Yes [id number] TAKE ONE [facility] N 20 mg 9-17 TABLET BY ity of tablet 00:00: MOUTH ONCE DAILY AT [facility] Yes [id number] TAKE ONE [facility] N 20 mg 9-17 TABLET BY ity of tablet 00:00: MOUTH ONCE DAILY AT [facility] 0 Yes [id number] TAKE ONE Univers N 20 mg 9-17 TABLET BY ity of tablet 00:00: MOUTH ONCE DAILY AT [facility] 0 Yes [id number] TAKE ONE Univers N 20 mg 9-17 TABLET BY ity of tablet 00:00: MOUTH ONCE DAILY AT [facility] 0 Yes [id number] TAKE ONE Univers N 20 mg 9-17 TABLET BY ity of tablet 00:00: MOUTH ONCE 00 DAILY AT [facility] [id number] Yes [id number] TAKE ONE [facility] N 20 mg 9-17 TABLET BY ity of tablet 00:00: MOUTH ONCE DAILY AT [facility] [id number] Yes [id number] TAKE ONE [facility] N 20 mg 9-17 TABLET BY ity of tablet 00:00: MOUTH ONCE 00 DAILY AT [facility] [address] 2020- No [id number] TAKE ONE [facility] N 20 mg 9-17 10-20 TABLET BY ity of tablet 00:00: 00:00 [place] 00 [place] DAILY [place] [facility] 2019- No [id number] TAKE ONE [facility] N 20 mg 9-17 10-20 TABLET BY ity of tablet 00:00: 00:00 [place] 00 :[place] DAILY AT Medical BEDTIME [place] [facility] 2019- No [id number] TAKE ONE [facility] N 20 mg 9-17 10-20 TABLET BY ity of tablet 00:00: 00:00 [place] 00 [place] DAILY AT Medical BEDTIME [place] fluticasone 2017- Yes [id number] 2{spray Use 2 [facility] 50 4-18 } Sprays in ity of mcg/actuati 00:00: each [place] on nasal 00 nostril Medical spray daily. [place] fluticasone Yes [id number] 2{spray Use 2 Univers 50 4-18 } Sprays in ity of mcg/actuati 00:00: each [place] on nasal 00 nostril Medical spray daily. [place] fluticasone 2017- Yes [id number] 2{spray Use 2 [facility] 50 4-18 } Sprays in ity of mcg/actuati 00:00: each [place] on nasal 00 nostril Medical spray daily. [place] fluticasone 2017- Yes [id number] 2{spray Use 2 [facility] 50 4-18 } Sprays in ity of mcg/actuati 00:00: each [place] on nasal 00 nostril Medical spray daily. [place] fluticasone 2017- Yes [id number] 2{spray Use 2 [facility] 50 4-18 } Sprays in ity of mcg/actuati 00:00: each [place] on nasal 00 nostril Medical spray daily. [place] fluticasone 2017- Yes [id number] 2{spray Use 2 [facility] 50 4-18 } Sprays in ity of mcg/actuati 00:00: each [place] on nasal 00 nostril Medical spray daily. [place] fluticasone 2017- Yes [id number] 2{spray Use 2 [facility] 50 4-18 } Sprays in ity of mcg/actuati 00:00: each [place] on nasal 00 nostril Medical spray daily. [place] fluticasone 2017- Yes [id number] 2{spray Use 2 [facility] 50 4-18 } Sprays in ity of mcg/actuati 00:00: each [place] on nasal 00 nostril Medical spray daily. [place] fluticasone 2018- Yes [id number] 2{spray Use 2 [facility] 50 4-18 } Sprays in ity of mcg/actuati 00:00: each [place] on nasal 00 nostril Medical spray daily. Branch fluticasone 2017- Yes [id number] 2{spray Use 2 [facility] 50 4-18 } Sprays in ity of mcg/actuati 00:00: each [place] on nasal 00 nostril Medical spray daily. Branch fluticasone 2017- Yes [id number] 2{spray Use 2 Univers 50 4-18 } Sprays in ity of mcg/actuati 00:00: each [place] on nasal 00 nostril Medical spray daily. Branch fluticasone 2017- Yes [id number] 2{spray Use 2 [facility] 50 4-18 } Sprays in ity of mcg/actuati 00:00: each [place] on nasal 00 nostril Medical spray daily. Branch fluticasone 2017- Yes [id number] 2{spray Use 2 [facility] 50 4-18 } Sprays in ity of mcg/actuati 00:00: each [place] on nasal 00 nostril Medical spray daily. Branch fluticasone 2017- Yes [id number] 2{spray Use 2 [facility] 50 4-18 } Sprays in ity of mcg/actuati 00:00: each [place] on nasal 00 nostril Medical spray daily. Branch fluticasone 2017- Yes [id number] 2{spray Use 2 [facility] 50 4-18 } Sprays in ity of mcg/actuati 00:00: each [place] on nasal 00 nostril Medical spray daily. Branch fluticasone 2017- Yes [id number] 2{spray Use 2 Univers 50 4-18 } Sprays in ity of mcg/actuati 00:00: each [place] on nasal 00 nostril Medical spray daily. Branch fluticasone 2018- Yes [id number] 2{spray Use 2 [facility] 50 4-18 } Sprays in ity of mcg/actuati 00:00: each [place] on nasal 00 nostril Medical spray daily. Branch fluticasone 2017- Yes [id number] 2{spray Use 2 [facility] 50 4-18 } Sprays in ity of mcg/actuati 00:00: each [place] on nasal 00 nostril Medical spray daily. Branch fluticasone 2019- No [id number] 2{spray Use 2 [facility] 50 4-18 10-20 } Sprays in ity of mcg/actuati 00:00: 00:00 each [place] on nasal 00 :00 nostril Medical spray daily. [place] fluticasone 2019- No [id number] 2{spray Use 2 [facility] 50 4-18 10-20 } Sprays in ity of mcg/actuati 00:00: 00:00 each [place] on nasal 00 :00 nostril Medical spray daily. [place] fluticasone 2019- No [id number] 2{spray Use 2 [facility] 50 4-18 10-20 } Sprays in ity of mcg/actuati 00:00: 00:00 each [place] on nasal 00 :00 nostril Medical spray daily. [place] azithromyci azithromyci No azithromyc [facility] n 250 mg n 250 mg in 250 mg Fa [place] tablet tablet tablet Practic e benzonatate benzonatate No benzonatat [facility] 100 mg 100 mg e 100 mg Family capsule capsule capsule Practi c e bromphenira bromphenira No bromphenir [facility] mine-pseudo mine-pseudo amine-pseu Family ephedrine-D ephedrine-D doephedrin Practic M 2 mg-30 M 2 mg-30 e-DM 2 e mg-10 mg/5 mg-10 mg/5 mg-30 mL oral mL oral mg-10 mg/5 syrup TAKE syrup TAKE mL oral 10 ML BY 10 ML BY syrup TAKE MOUTH EVERY MOUTH EVERY 10 ML BY 4 HOURS 4 HOURS MOUTH NEEDED NEEDED EVERY 4 HOURS NEEDED cetirizine cetirizine No cetirizine [facility] 10 mg 10 mg 10 mg Family tablet TAKE tablet TAKE tablet Practic 1 TABLET BY 1 TABLET BY TAKE 1 e MOUTH EVERY MOUTH EVERY TABLET BY DAY DAY MOUTH EVERY DAY docusate docusate No docusate Dave arjun sodium 100 sodium 100 sodium 100 Family mg capsule mg capsule mg capsule Practic TAKE 1 TAKE 1 TAKE 1 e CAPSULE BY CAPSULE BY CAPSULE BY MOUTH EVERY MOUTH EVERY MOUTH 12 HOURS 12 HOURS EVERY 12 HOURS doxycycline doxycycline No doxycyclin [facility] hyclate 100 hyclate 100 e hyclate Family mg capsule mg capsule 100 mg P ractic capsule e famotidine famotidine No famotidine [facility] 20 mg 20 mg 20 mg Family tablet TAKE tablet TAKE tablet Practic 1 TABLET BY 1 TABLET BY TAKE 1 e MOUTH EVERY MOUTH EVERY TABLET BY NIGHT AT NIGHT AT MOUTH BEDTIME BEDTIME EVERY NIGHT AT BEDTIME fluoxetine fluoxetine No fluoxetine [facility] 20 mg 20 mg 20 mg Family capsule capsule capsule Practi c e fluoxetine fluoxetine No fluoxetine [facility] 40 mg 40 mg 40 mg Family capsule capsule capsule Practi c e fluticasone fluticasone No fluticason [facility] propionate propionate e Fam danny 50 50 propionate Practic mcg/actuati mcg/actuati 50 e on nasal on nasal mcg/actuat spray,suspe spray,suspe ion nasal nsion SHAKE nsion SHAKE spray,susp LIQUID AND LIQUID AND ension USE 1 SPRAY USE 1 SPRAY SHAKE IN EACH IN EACH LIQUID AND NOSTRIL NOSTRIL USE 1 TWICE DAILY TWICE DAILY SPRAY IN EACH NOSTRIL TWICE DAILY ibuprofen ibuprofen No ibuprofen [facility] 600 mg 600 mg 600 mg Family tablet TAKE tablet TAKE tablet Practic 1 TABLET BY 1 TABLET BY TAKE 1 e MOUTH EVERY MOUTH EVERY TABLET BY 6 HOURS 6 HOURS MOUTH WITH FOOD WITH FOOD EVERY 6 OR MILK OR MILK HOURS WITH NEEDED NEEDED FOOD OR MILK NEEDED Janumet XR Janumet XR No 2 Q1D Janumet XR [facility] 50 mg-1,000 50 mg-1,000 50 F amily mg mg mg-1,000 Practic tablet,exte tablet,exte mg e nded nded tablet,ext release release ended Take 2 Take 2 release tablets tablets Take 2 every day every day tablets by oral by oral every day route in route in by oral the morning the morning route in for 30 for 30 the days. days. morning for 30 days. Linzess 145 Linzess 145 No Linzess [facility] mcg capsule mcg capsule 145 mcg Family TAKE 1 TAKE 1 capsule Practic CAPSULE BY CAPSULE BY TAKE 1 e MOUTH DAILY MOUTH DAILY CAPSULE BY 30 MINUTES 30 MINUTES MOUTH BEFORE BEFORE DAILY 30 BREAKFAST BREAKFAST MINUTES BEFORE BREAKFAST meloxicam meloxicam No meloxicam [facility] 15 mg 15 mg 15 mg Family tablet TAKE tablet TAKE tablet Practic 1 TABLET BY 1 TABLET BY TAKE 1 e MOUTH ONCE MOUTH ONCE TABLET BY DAILY DAILY MOUTH ONCE NEEDED FOR NEEDED FOR DAILY PAIN FOR 30 PAIN FOR 30 NEEDED FOR DAYS DAYS PAIN FOR 30 DAYS metoclopram metoclopram No metoclopra [facility] ian 10 mg ian 10 mg mide [...] DAYS DAYS TWICE DAILY FOR 7 DAYS misoprostol misoprostol No misoprosto [place] 200 mcg 200 mcg l 200 mcg Fami ly tablet TAKE tablet TAKE tablet Practic 1 TABLET BY 1 TABLET BY TAKE 1 e MOUTH WITH MOUTH WITH TABLET BY MEAL THE MEAL THE MOUTH WITH NIGHT NIGHT MEAL THE BEFORE AND BEFORE AND NIGHT MORNING OF MORNING OF BEFORE AND PROCEDURE PROCEDURE MORNING OF PROCEDURE naproxen naproxen No naproxen Dave arjun 500 [...] NEEDED FOR PAIN nitrofurant nitrofurant No nitrofuran [facility] oin oin toin [facility] monohydrate monohydrate monohydrat Practic /macrocryst /macrocryst e/macrocry e als 100 mg als 100 mg stals 100 capsule capsule mg capsule TAKE 1 TAKE 1 TAKE 1 CAPSULE BY CAPSULE BY CAPSULE BY MOUTH TWICE MOUTH TWICE MOUTH DAILY FOR 7 DAILY FOR 7 TWICE DAYS DAYS DAILY FOR 7 DAYS nortriptyli nortriptyli No nortriptyl [facility] ne 10 mg ne 10 mg ine 10 mg Fa [facility] capsule capsule capsule Practi c TAKE 2 [...] IMPROVED. IN 3 WEEKS IF NOT IMPROVED. [place] 3 [place] 3 No [place] 3 [facility] omeprazole omeprazole No omeprazole [place] 20 mg 20 mg 20 mg Family capsule,del capsule,del capsule,de Practic ayed ayed layed e release release release TAKE 1 TAKE 1 TAKE 1 CAPSULE BY CAPSULE BY CAPSULE BY MOUTH EVERY MOUTH EVERY MOUTH MORNING IN MORNING IN EVERY THE MORNING THE MORNING MORNING IN THE MORNING prednisone prednisone No prednisone [facility] 20 mg 20 mg 20 mg Family tablet tablet tablet Practic e Prescriptio Prescriptio No Prescripti [facility] n - Prior n - Prior on - Prior Family Authorizati Authorizati Authorizat Practic on Request on Request ion e Request rosuvastati rosuvastati No rosuvastphillip [facility] n 10 mg n 10 mg in 10 mg Famil y tablet TAKE tablet TAKE tablet Practic 1 TABLET BY 1 TABLET BY TAKE 1 e MOUTH EVERY MOUTH EVERY TABLET BY EVENING EVENING MOUTH EVERY EVENING sulfamethox sulfamethox No sulfametho [facility] azole 800 azole 800 xazole 800 Family mg-trimetho mg-trimetho mg-trimeth Practic prim 160 mg prim 160 mg oprim 160 e tablet TAKE tablet TAKE mg tablet 1 TABLET BY 1 TABLET BY TAKE 1 MOUTH EVERY MOUTH EVERY TABLET BY 12 HOURS 12 HOURS MOUTH FOR 10 DAYS FOR 10 DAYS EVERY 12 HOURS FOR 10 DAYS Suprep Suprep No Suprep [place] Bowel Prep Bowel Prep Bowel Prep Family Kit 17.5 Kit 17.5 Kit 17.5 Pra ctic gram-3.13 gram-3.13 gram-3.13 e gram-1.6 gram-1.6 gram-1.6 gram oral gram oral gram oral solution solution solution USE USE USE DIRECTED DIRECTED DIRECTED PER PER PER COLONOSCOPY COLONOSCOPY COLONOSCOP PACKET PACKET Y PACKET tizanidine tizanidine No tizanidine [facility] 4 mg tablet 4 mg tablet 4 mg F amily TAKE 1 TAKE 1 tablet Practic TABLET BY TABLET BY TAKE 1 e MOUTH MOUTH TABLET BY NEEDED AT NEEDED AT MOUTH BEDTIME FOR BEDTIME FOR NEEDED AT MUSCLE MUSCLE BEDTIME SPASM FOR SPASM FOR FOR MUSCLE 30 DAYS 30 DAYS SPASM FOR 30 DAYS trazodone trazodone No trazodone [facility] 50 mg 50 mg 50 mg Family tablet tablet tablet Practic e Vitamin D3 Vitamin D3 No Vitamin D3 [facility] Family Practic e Immunizations Ordered Filled Immunization Date Status Comments Sour e Immunization Name Name SARS-COV-2 COVID-19 2021-01-09 Completed Unive rsity of PFIZER VACCINE 00:00:00 [facility] [place] SARS-COV-2 COVID-19 2021-01-09 Completed Unive rsity of PFIZER VACCINE 00:00:00 [facility] [place] SARS-COV-2 COVID-19 2021-01-09 Completed Unive rsity of PFIZER VACCINE 00:00:00 [facility] [place] SARS-COV-2 COVID-19 2021-01-09 Completed Unive rsity of PFIZER VACCINE 00:00:00 [facility] [place] SARS-COV-2 COVID-19 2021-01-09 Completed Unive rsity of PFIZER VACCINE 00:00:00 [facility] [place] COVID-19 COVID-19 2021-01-09 Completed [facility] (SARS-COV-2) (SARS-COV-2) 00:00:00 Practice vaccine, vaccine, unspecified unspecified SARS-COV-2 COVID-19 2020-12-20 Completed Unive rsity of PFIZER VACCINE 00:00:00 [facility] [place] SARS-COV-2 COVID-19 2020-12-20 Completed Unive rsity of PFIZER VACCINE 00:00:00 [facility] [place] SARS-COV-2 COVID-19 2020-12-20 Completed Unive rsity of PFIZER VACCINE 00:00:00 [facility] [place] SARS-COV-2 COVID-19 2020-12-20 Completed Unive rsity of PFIZER VACCINE 00:00:00 [facility] [place] SARS-COV-2 COVID-19 2020-12-20 Completed Unive rsity of PFIZER VACCINE 00:00:00 [facility] [place] COVID-19 COVID-19 2020-12-20 Completed [facility] (SARS-COV-2) (SARS-COV-2) 00:00:00 Practice vaccine, vaccine, unspecified unspecified Influenza Virus 2020-06-21 Completed Universit y of Vaccine Quad .5 mL 00:00:00 [place] [facility] IM 6+ MO Branch Influenza Virus 2020-06-21 Completed Universit y of Vaccine [place] .5 mL 00:00:00 [place] [facility] IM 6+ MO Branch Influenza Virus [...] y of Vaccine [place] .5 mL 00:00:00 [place] [facility] IM 6+ MO Branch Influenza Virus [...] y of Vaccine [place] .5 mL 00:00:00 [place] [facility] IM 6+ MO Branch Influenza Virus 2020-06-21 Completed Universit y of Vaccine [place] .5 mL 00:00:00 [place] [facility] IM 6+ MO Branch Influenza Virus 2020-06-21 Completed Universit y of Vaccine Quad .5 mL 00:00:00 [place] [facility] IM 6+ MO Branch Influenza Virus 2020-06-21 Completed Universit y of Vaccine [place] .5 mL 00:00:00 [place] [facility] IM 6+ MO Branch Influenza Virus 2020-06-21 Completed Universit y of Vaccine [place] .5 mL 00:00:00 [place] [facility] IM 6+ MO Branch Influenza Virus 2020-06-21 Completed Universit y of Vaccine [place] .5 mL 00:00:00 [place] [facility] IM 6+ MO Branch Influenza Virus 2020-06-21 Completed Universit y of Vaccine Quad .5 mL 00:00:00 [facility] 6+ MO Branch influenza, influenza, 2020-06-02 Completed [facility] Family injectable, injectable, 00:00:00 Practice quadrivalent quadrivalent Pneumococcal 2018-12-25 Completed University o f Polysaccharide, 00:00:00 [place] [facility] ical PPSV23 (PNEUMOVAX) Branch TDAP (ADACEL) 2018-12-25 Completed University of VACCINE 00:00:00 [facility] Pneumococcal 2018-12-25 Completed University o f Polysaccharide, 00:00:00 [place] [facility] ical PPSV23 (PNEUMOVAX) Branch TDAP (ADACEL) 2018-12-25 Completed University of VACCINE 00:00:00 [facility] Pneumococcal 2018-12-25 Completed University o f Polysaccharide, 00:00:00 [place] [facility] ical PPSV23 (PNEUMOVAX) Branch TDAP (ADACEL) 2018-12-25 Completed University of VACCINE 00:00:00 [facility] Pneumococcal 2018-12-25 Completed University o f Polysaccharide, 00:00:00 [place] [facility] ical PPSV23 (PNEUMOVAX) Branch TDAP (ADACEL) 2018-12-25 Completed University of VACCINE 00:00:00 [facility] Pneumococcal 2018-12-25 Completed University o f Polysaccharide, 00:00:00 [place] [facility] ical PPSV23 (PNEUMOVAX) Branch TDAP (ADACEL) 2018-12-25 Completed University of VACCINE 00:00:00 [facility] Pneumococcal 2018-12-25 Completed University o f Polysaccharide, 00:00:00 [place] [facility] ical PPSV23 (PNEUMOVAX) Branch TDAP (ADACEL) 2018-12-25 Completed University of VACCINE 00:00:00 [facility] Pneumococcal 2018-12-25 Completed University o f Polysaccharide, 00:00:00 [place] [facility] ical PPSV23 (PNEUMOVAX) Branch TDAP (ADACEL) 2018-12-25 Completed University of VACCINE 00:00:00 [facility] Pneumococcal 2018-12-25 Completed University o f Polysaccharide, 00:00:00 [place] [facility] ical PPSV23 (PNEUMOVAX) Branch TDAP (ADACEL) 2018-12-25 Completed University of VACCINE 00:00:00 [facility] Pneumococcal 2018-12-25 Completed University o f Polysaccharide, 00:00:00 [place] [facility] ical PPSV23 (PNEUMOVAX) Branch TDAP (ADACEL) 2018-12-25 Completed University of VACCINE 00:00:00 [facility] Pneumococcal 2018-12-25 Completed University o f Polysaccharide, 00:00:00 [place] [facility] ical PPSV23 (PNEUMOVAX) Branch TDAP (ADACEL) 2018-12-25 Completed University of VACCINE 00:00:00 [facility] Pneumococcal 2018-12-25 Completed University o f Polysaccharide, 00:00:00 [place] [facility] ical PPSV23 (PNEUMOVAX) Branch TDAP (ADACEL) 2018-12-25 Completed University of VACCINE 00:00:00 [facility] Pneumococcal 2018-12-25 Completed University o f Polysaccharide, 00:00:00 [place] [facility] ical PPSV23 (PNEUMOVAX) Branch TDAP (ADACEL) 2018-12-25 Completed University of VACCINE 00:00:00 [facility] Pneumococcal 2018-12-25 Completed University o f Polysaccharide, 00:00:00 [place] [facility] ical PPSV23 (PNEUMOVAX) Branch TDAP (ADACEL) 2018-12-25 Completed University of VACCINE 00:00:00 [facility] Pneumococcal 2018-12-25 Completed University o f Polysaccharide, 00:00:00 [place] [facility] ical PPSV23 (PNEUMOVAX) Branch TDAP (ADACEL) 2018-12-25 Completed University of VACCINE 00:00:00 [facility] Pneumococcal 2018-12-25 Completed University o f Polysaccharide, 00:00:00 [place] [facility] ical PPSV23 (PNEUMOVAX) Branch TDAP (ADACEL) 2018-12-25 Completed University of VACCINE 00:00:00 [facility] Pneumococcal 2018-12-25 Completed University o f Polysaccharide, 00:00:00 [place] [facility] ical PPSV23 (PNEUMOVAX) Branch TDAP (ADACEL) 2018-12-25 Completed University of VACCINE 00:00:00 [facility] Pneumococcal 2018-12-25 Completed University o f Polysaccharide, 00:00:00 [place] [facility] ical PPSV23 (PNEUMOVAX) Branch TDAP (ADACEL) 2018-12-25 Completed University of VACCINE 00:00:00 [facility] Pneumococcal 2018-12-25 Completed University o f Polysaccharide, 00:00:00 [place] [facility] ical PPSV23 (PNEUMOVAX) Branch TDAP (ADACEL) 2018-12-25 Completed University of VACCINE 00:00:00 [facility] Pneumococcal 2018-12-25 Completed University o f Polysaccharide, 00:00:00 [place] [facility] ical PPSV23 (PNEUMOVAX) Branch TDAP (ADACEL) 2018-12-25 Completed University of VACCINE 00:00:00 [facility] Pneumococcal 2018-12-25 Completed University o f Polysaccharide, 00:00:00 [place] [facility] ical PPSV23 (PNEUMOVAX) Branch TDAP (ADACEL) 2018-12-25 Completed University of VACCINE 00:00:00 [facility] Pneumococcal 2018-12-25 Completed University o f Polysaccharide, 00:00:00 [place] [facility] ical PPSV23 (PNEUMOVAX) Branch TDAP (ADACEL) 2018-12-25 Completed University of VACCINE 00:00:00 [facility] Pneumococcal 2018-12-25 Completed University o f Polysaccharide, 00:00:00 [place] [facility] ical PPSV23 (PNEUMOVAX) Branch TDAP (ADACEL) 2018-12-25 Completed University of VACCINE 00:00:00 [facility] Pneumococcal 2018-12-25 Completed University o f Polysaccharide, 00:00:00 [place] [facility] ical PPSV23 (PNEUMOVAX) Branch TDAP (ADACEL) 2018-12-25 Completed University of VACCINE 00:00:00 [facility] Pneumococcal 2018-12-25 Completed University o f Polysaccharide, 00:00:00 [place] [facility] ical PPSV23 (PNEUMOVAX) Branch Pneumococcal 2018-12-25 Completed University o f Polysaccharide, 00:00:00 [place] [facility] ical PPSV23 (PNEUMOVAX) Branch TDAP (ADACEL) 2018-12-25 Completed University of VACCINE 00:00:00 [facility] Pneumococcal 2018-12-25 Completed University o f Polysaccharide, 00:00:00 [place] [facility] ical PPSV23 (PNEUMOVAX) Branch TDAP (ADACEL) 2018-12-25 Completed University of VACCINE 00:00:00 [facility] TDAP (ADACEL) 2018-12-25 Completed University of VACCINE 00:00:00 [facility] Pneumococcal 2018-12-25 Completed University o f Polysaccharide, 00:00:00 [place] [facility] ical PPSV23 (PNEUMOVAX) Branch TDAP (ADACEL) 2018-12-25 Completed University of VACCINE 00:00:00 [facility] Pneumococcal 2018-12-25 Completed University o f Polysaccharide, 00:00:00 [place] [facility] ical PPSV23 (PNEUMOVAX) Branch TDAP (ADACEL) 2018-12-25 Completed University of VACCINE 00:00:00 [facility] Pneumococcal 2018-12-25 Completed University o f Polysaccharide, 00:00:00 [place] [facility] ical PPSV23 (PNEUMOVAX) Branch TDAP (ADACEL) 2018-12-25 Completed University of VACCINE 00:00:00 [facility] Pneumococcal 2018-12-25 Completed University o f Polysaccharide, 00:00:00 [place] [facility] ical PPSV23 (PNEUMOVAX) Branch TDAP (ADACEL) 2018-12-25 Completed University of VACCINE 00:00:00 [facility] Pneumococcal 2018-12-25 Completed University o f Polysaccharide, 00:00:00 [place] [facility] PPSV23 (PNEUMOVAX) Branch TDAP (ADACEL) 2018-12-25 Completed University of VACCINE 00:00:00 [facility] Pneumococcal 2018-12-25 Completed University o f Polysaccharide, 00:00:00 [place] [facility] PPSV23 (PNEUMOVAX) Branch TDAP (ADACEL) 2018-12-25 Completed University of VACCINE 00:00:00 [facility] Pneumococcal 2018-12-25 Completed University o f Polysaccharide, 00:00:00 [place] [facility] PPSV23 (PNEUMOVAX) Branch TDAP (ADACEL) 2018-12-25 Completed University of VACCINE 00:00:00 [facility] Pneumococcal 2018-12-25 Completed University o f Polysaccharide, 00:00:00 [place] [facility] PPSV23 (PNEUMOVAX) Branch TDAP (ADACEL) 2018-12-25 Completed University of VACCINE 00:00:00 [facility] Pneumococcal 2018-12-25 Completed University o f Polysaccharide, 00:00:00 [place] [facility] PPSV23 (PNEUMOVAX) Branch TDAP (ADACEL) 2018-12-25 Completed University of VACCINE 00:00:00 [facility] Pneumococcal 2018-12-25 Completed University o f Polysaccharide, 00:00:00 [place] [facility] PPSV23 (PNEUMOVAX) Branch TDAP (ADACEL) 2018-12-25 Completed University of VACCINE 00:00:00 [facility] Pneumococcal 2018-12-25 Completed University o f Polysaccharide, 00:00:00 [place] [facility] PPSV23 (PNEUMOVAX) Branch TDAP (ADACEL) 2018-12-25 Completed University of VACCINE 00:00:00 [facility] Pneumococcal 2018-12-25 Completed University o f Polysaccharide, 00:00:00 [place] [facility] PPSV23 (PNEUMOVAX) Branch TDAP (ADACEL) 2018-12-25 Completed University of VACCINE 00:00:00 [facility] Pneumococcal 2018-12-25 Completed University o f Polysaccharide, 00:00:00 [place] [facility] PPSV23 (PNEUMOVAX) Branch TDAP (ADACEL) 2018-12-25 Completed University of VACCINE 00:00:00 [facility] Pneumococcal 2018-12-25 Completed University o f Polysaccharide, 00:00:00 [place] [facility] PPSV23 (PNEUMOVAX) Branch Pneumococcal 2018-12-25 Completed University o f Polysaccharide, 00:00:00 [place] [facility] PPSV23 (PNEUMOVAX) Branch TDAP (ADACEL) 2018-12-25 Completed University of VACCINE 00:00:00 [facility] Pneumococcal 2018-12-25 Completed University o f Polysaccharide, 00:00:00 [place] [facility] PPSV23 (PNEUMOVAX) Branch TDAP (ADACEL) 2018-12-25 Completed University of VACCINE 00:00:00 [facility] TDAP (ADACEL) 2018-12-25 Completed University of VACCINE 00:00:00 [facility] Pneumococcal 2018-12-25 Completed University o f Polysaccharide, 00:00:00 [place] [facility] PPSV23 (PNEUMOVAX) Branch TDAP (ADACEL) 2018-12-25 Completed University of VACCINE 00:00:00 [facility] Pneumococcal 2018-12-25 Completed University o f Polysaccharide, 00:00:00 [place] [facility] PPSV23 (PNEUMOVAX) Branch TDAP (ADACEL) 2018-12-25 Completed University of VACCINE 00:00:00 [facility] Pneumococcal 2018-12-25 Completed University o f Polysaccharide, 00:00:00 [place] [facility] PPSV23 (PNEUMOVAX) Branch TDAP (ADACEL) 2018-12-25 Completed University of VACCINE 00:00:00 [facility] Pneumococcal 2018-12-25 Completed University o f Polysaccharide, 00:00:00 [place] [facility] PPSV23 (PNEUMOVAX) Branch TDAP (ADACEL) 2018-12-25 Completed University of VACCINE 00:00:00 [facility] Pneumococcal 2018-12-25 Completed University o f Polysaccharide, 00:00:00 [place] [facility] PPSV23 (PNEUMOVAX) Branch TDAP (ADACEL) 2018-12-25 Completed University of VACCINE 00:00:00 [facility] Pneumococcal 2018-12-25 Completed University o f Polysaccharide, 00:00:00 [place] [facility] PPSV23 (PNEUMOVAX) Branch TDAP (ADACEL) 2018-12-25 Completed University of VACCINE 00:00:00 [facility] Pneumococcal 2018-12-25 Completed University o f Polysaccharide, 00:00:00 [place] [facility] PPSV23 (PNEUMOVAX) Branch TDAP (ADACEL) 2018-12-25 Completed University of VACCINE 00:00:00 [facility] Vital Signs Vital Name Observation Time Observation Value Comments Source Systolic blood 2022-12-10 15:38:00 168 mm[Hg] Univer sity of pressure [facility] Diastolic blood 2022-12-10 15:38:00 93 mm[Hg] Unive rsity of pressure [facility] Heart rate 2022-12-10 15:38:00 97 /min [facility] Body temperature 2022-12-10 15:38:00 36.72 Radha [facility] Respiratory rate 2022-12-10 15:38:00 18 /min [facility] Body weight 2022-12-10 15:38:00 68.04 kg [facility] BMI 2022-12-10 15:38:00 26.57 kg/m2 [facility] [place] [facility] Oxygen saturation in 2022-12-10 15:38:00 99 /min University of Arterial blood by [facility] Pulse oximetry Branch BP Diastolic 2022-02-16 00:00:00 78 mm[Hg] [facility] Height 2022-02-16 00:00:00 63 [in_i] [facility] BMI (Body Mass 2022-02-16 00:00:00 26.9 kg/m2 [facility] BP Systolic 2022-02-16 00:00:00 133 mm[Hg] [facility] Body Weight 2022-02-16 00:00:00 152 [lb_av] [facility] BP Diastolic 2021-08-09 00:00:00 77 mm[Hg] [facility] Height 2021-08-09 00:00:00 63 [in_i] [facility] BMI (Body Mass 2021-08-09 00:00:00 25.3 kg/m2 [facility] BP Systolic 2021-08-09 00:00:00 125 mm[Hg] [facility] Body Weight 2021-08-09 00:00:00 142.8 [lb_av] [facility] BP Diastolic 2021-05-11 00:00:00 74 mm[Hg] [facility] Height 2020-10-06 00:00:00 63 [in_i] [facility] BMI (Body Mass 2020-10-06 00:00:00 27.1 kg/m2 [facility] BP Systolic 2020-10-06 00:00:00 119 mm[Hg] [facility] Body Weight 2020-10-06 00:00:00 153 [lb_av] [facility] Practice Systolic blood 2020-09-16 17:00:00 162 mm[Hg] Univer sity of pressure [facility] Diastolic blood 2020-09-16 17:00:00 89 mm[Hg] Unive rsity of pressure [facility] Heart rate 2020-09-16 17:00:00 100 /min Universi ty of [facility] Body temperature 2020-09-16 17:00:00 36.5 Radha Univ ersity of [facility] Respiratory rate 2020-09-16 17:00:00 16 /min Univ ersity of [facility] Body weight 2020-09-16 17:00:00 68.04 kg [facility] [place] [facility] BMI 2020-09-16 17:00:00 26.57 kg/m2 Universi ty of [facility] Oxygen saturation in 2020-09-16 17:00:00 100 /min [facility] Arterial blood by [facility] Pulse oximetry Branch Systolic blood 2020-07-20 14:15:00 126 mm[Hg] Univer sity of pressure [facility] Diastolic blood 2020-07-20 14:15:00 81 mm[Hg] Unive rsity of pressure [facility] Heart rate 2020-07-20 14:15:00 89 /min [facility] [place] [facility] Body height 2020-07-20 14:15:00 160 cm [facility] [place] [facility] Body weight 2020-07-20 14:15:00 69.854 kg [facility] [place] [facility] BMI 2020-07-20 14:15:00 27.28 kg/m2 [facility] [place] [facility] BP Diastolic 2020-07-05 00:00:00 82 mm[Hg] [facility] Height 2020-07-05 00:00:00 63 [in_i] [facility] BMI (Body Mass 2020-07-05 00:00:00 28.3 kg/m2 [facility] BP Systolic 2020-07-05 00:00:00 138 mm[Hg] [facility] Body Weight 2020-07-05 00:00:00 159.6 [lb_av] [facility] Practice Systolic blood 2020-06-28 20:25:00 148 mm[Hg] Univer sity of pressure [facility] Diastolic blood 2020-06-28 20:25:00 85 mm[Hg] Unive rsity of pressure [facility] Heart rate 2020-06-28 20:24:00 81 /min Universi ty of [facility] Respiratory rate 2020-06-28 20:24:00 19 /min Univ ersity of [facility] Body height 2020-06-28 20:24:00 160 cm Universi ty of [facility] Body weight 2020-06-28 20:24:00 71.895 kg [facility] [place] [facility] BMI 2020-06-28 20:24:00 28.08 kg/m2 Universi ty of [facility] Oxygen saturation in 2020-06-28 20:24:00 99 /min University Arterial blood by [facility] Pulse oximetry Branch Systolic blood 2020-06-21 14:01:00 118 mm[Hg] Univer sity of pressure [facility] Diastolic blood 2020-06-21 14:01:00 76 mm[Hg] Unive rsity of pressure [facility] Heart rate 2020-06-21 14:01:00 95 /min [facility] [place] [facility] [place] Body temperature 2020-06-21 14:01:00 36.33 Radha Univ ersity of [facility] Body height 2020-06-21 14:01:00 160 cm Universi ty of [facility] Body weight 2020-06-21 14:01:00 69.854 kg [facility] [place] [facility] BMI 2020-06-21 14:01:00 27.28 kg/m2 Universi ty of [facility] Systolic blood 2020-02-03 18:05:00 141 mm[Hg] Univer sity of pressure [facility] Diastolic blood 2020-02-03 18:05:00 87 mm[Hg] Unive rsity of pressure [facility] Heart rate 2020-02-03 18:05:00 86 /min Universi ty of [facility] Body temperature 2020-02-03 18:05:00 37.17 Radha Univ ersity of [facility] Body height 2020-02-03 18:05:00 160 cm [facility] [place] [facility] Body weight 2020-02-03 18:05:00 70.308 kg [facility] [place] [facility] BMI 2020-02-03 18:05:00 27.46 kg/m2 [facility] [place] [facility] [place] Oxygen saturation in 2020-02-03 18:05:00 98 /min University of Arterial blood by [facility] Pulse oximetry Branch Systolic blood 2019-12-07 15:26:00 135 mm[Hg] Univer sity of pressure [place] [facility] [place] Diastolic blood 2019-12-07 15:26:00 79 mm[facility]Hg] [facility] 2019-12-07 15:26:00 91 /min [facility]i [facility] [place] [facility] [place] Body temperature 2019-12-07 15:26:00 36.83 Radha [facility] Respiratory rate 2019-12-07 15:26:00 17 /min [facility] Body height 2019-12-07 15:26:00 160 cm [facility] [place] [facility] [place] Body weight 2019-12-07 15:26:00 67.132 kg [facility] [place] [facility] BMI 2019-12-07 15:26:00 26.22 kg/m2 Universi ty of [facility] Oxygen saturation in 2019-12-07 15:26:00 98 /min University of Arterial blood by [facility] Pulse oximetry Branch Procedures Procedure Date / Time Performing Clinician Source Performed XR ELBOW >3 VW LEFT 2022-12-10 18:13:13 Torsten Catherine [facility] XR WRIST 3+ VW LEFT 2022-12-10 18:13:13 Torsten Catherine [facility] XR LUMBAR SPINE 3 VW 2022-12-10 16:57:09 Beatriz Worrell [facility] XR SHOULDER 2+ VW LEFT 2022-12-10 16:56:25 [facility] OF [facility]IVACY 2022-12-10 15:36:39 Doctor Unassigned, [facility] PRACTICES [facility] CONSENT/REFUSAL FOR 2022-12-10 15:35:18 Doctor Unassigned, [facility] DIAGNOSIS AND TREATMENT [facility] MEDICAL RELEASE/CLEARANCE 2021-03-29 05:01:00 Doctor June [facility] FORMS [facility] EXTERNAL PROVIDER RECORDS 2021-03-17 05:01:00 Doctor June [facility] REFERRAL- REQUEST/RESPONSE 2021-02-13 05:01:00 Doctor Slade [facility] EXTERNAL PROVIDER RECORDS 2020-10-28 06:01:00 Doctor Slade [facility] AUTHORIZATION FOR RELEASE 2020-10-07 06:01:00 Doctor Slade [facility] NOTICE OF PRIVACY 2020-09-16 16:50:32 Doctor June [facility] CONSENT/REFUSAL FOR 2020-09-16 16:50:23 Doctor [facility] DIAGNOSIS AND TREATMENT [facility] MEDICAL RELEASE/CLEARANCE 2020-07-21 06:01:00 Doctor June [facility] FORMS [facility] FLU VACC ([id number]), 6+ 2020-06-21 14:20:16 Neymar Pagan [facility] MONTHS, IM, QUAD Medical Branch DISCLOSURE AND CONSENT, 2020-06-14 05:01:00 Doctor Slade, [facility] MEDICAL [facility] SURGICAL [facility] replaced by [facility] PROCEDURES BI SCREENING MAMMOGRAM 2020-05-03 20:47:04 Requisition, [facility] BILATERAL Medical Branch US PELVIS COMPLETE WITH 2020-05-03 20:37:12 Requisition, Paper [facility] TRANSVAGINAL Medical Branch NOTICE OF PRIVACY 2020-05-03 19:43:39 Doctor Slade [facility] CONSENT/REFUSAL FOR 2020-05-03 19:43:31 Doctor June [facility] DIAGNOSIS AND TREATMENT [facility] ASSIGNMENT OF BENEFITS 2020-05-03 19:43:21 Doctor Slade, [facility] ASSIGNMENT OF BENEFITS 2020-02-22 15:09:41 Doctor Sanjuanitassigned, [facility] NOTICE OF PRIVACY 2020-02-03 17:58:02 Doctor Unassigned, [facility] [place] PRACT[facility] CONSENT/REFUSAL FOR 2020-02-03 17:57:50 [facility] Ligation of Fallopian Tube 1996-09-02 00:00:00 [facility] Lap[facility]oscopic 1991-09-02 00:00:00 [facility] Fami ly Cholecystectomy Practice Tonsillectomy [facility] Plan of Care Planned Activity Planned Date Details Comments Source Diagnostic Test 2022-02-16 glucose, fingerstick, Dave díaz Family Pending 00:00:00 blood [code = Practice glucose, fingerstick, blood] Diagnostic Test 2022-02-16 hemoglobin A1C, [facility] 00:00:00 fingerstick [code = Practice hemoglobin A1C, fingerstick] Encounters Start End Encounter Admission Attending Care Care Encounter Source Date/Time Date/Time Type Type Clinicians Facility Department ID 2021-07-01 Emergency [facility] [id number] Univers 17:33:08 ity [facility] 2021-06-29 Emergency [facility] [id number] [facility]16 [facility] 2022-12-10 2022-12-10 Emergency [facility] ERT [id number] Univers 10:39:00 14:39:[address] [facility] 2022-12-10 2022-12-10 Emergency [facility] [id number] Univers 10:39:00 14:39:00 Torsten [facility] [id number] [facility] [id number] [facility] [phone] [place] [address] Branch 2022-04-14 2022-04-14 Outpatient Daniel_T VFP VFP [id number] 5-20 [facility] 00:00:00 00:00:00 [id number] Family Practic e 2022-03-08 2022-03-08 Outpatient Daniel_T VFP VFP [id number] 5-20 [facility] 03:43:00 03:43:00 [id number] Family Practic e 2022-02-16 2022-02-16 Outpatient Daniel_T VFP VFP [id number] 5-20 [facility] 04:35:00 04:35:00 [id number] Family Practic e 2022-02-16 2022-02-16 Ang VFP [place] - [id number] [facility] 00:00:00 [facility]:00:00 [facility] Family [place]kKorey MD: [id number] CHILANGO_Gary thierry Shadow [facility], [address] [address] , Ph. 2022-02-12 2022-02-12 Outpatient Daniel_T VFP VFP [id number] [address] [place] [address] 02:02:00 02:02:00 [id number] Family Practic e 2022-02-12 2022-02-12 Outpatient Daniel_T VFP VFP [id number] [address] [place] [address] 02:02:00 02:02:00 [id number] Family Practic e 2022-01-22 2022-01-22 Outpatient Daniel_T VFP VFP [id number] [address] [place] [address] 01:19:00 01:19:00 [id number] Family Practic e 2021-08-15 2021-08-15 Outpatient Daniel_T VFP VFP [id number] [address] [place] [address] 07:40:00 07:40:00 [id number] Family Practic e 2021-08-09 2021-08-09 Outpatient Daniel_T VFP VFP [id number] [address] [place] [address] 10:00:00 10:00:00 [id number] Family Practic e 2021-08-09 2021-08-09 Ang VFP [place] - [id number] [facility] 00:00:00 00:00:00 [facility] Family [place] MD: [id number] Max thierry Shadow [facility], [address], [place] [address] , Ph. 2021-08-03 2021-08-03 Outpatient Daniel_T VFP VFP [id number] [address] [place] [address] 10:33:00 10:33:00 [id number] Family Practic e 2021-08-03 2021-08-03 Outpatient Daniel_T VFP VFP [id number] [address] [place] [address] 10:33:00 10:33:00 [id number] Family Practic e 2021-05-16 2021-05-16 Outpatient Daniel_T VFP VFP [id number] [address] [place] [address] 02:53:00 02:53:00 [id number] Family Practic e 2021-05-11 2021-05-11 Outpatient Daniel_T VFP VFP [id number] [address] [place] [address] 09:52:00 09:52:00 [id number] Family Practic e 2021-05-11 2021-05-11 Ang VFP [place] - [id number] [facility] 00:00:00 00:00:00 [facility] Family [place], Medical - Prackelvin casey MD: [id number] VM_HOU_Shad e Shadow ow [address], [address], [place] [address] , Ph. 2021-03-29 2021-03-29 Orders Doctor KAUR [id number] Univers 00:00:00 00:00:00 Only Unassigned, [place] [id number] [facility] [place] [facility] [id number] Dank as [phone] [place] [address] Branch 2021-03-28 2021-03-28 Telephone [facility], [facility] [id number] Univers 00:00:00 00:00:00 N[place] [id number] ity [id number] [place] [phone] [place] dical [facility] 059 [facility] 2021-03-18 2021-03-18 Outpatient Daniel_T VFP VFP [id number] [address] [place] [address] 01:40:00 01:40:00 [id number] Family Practic e 2021-03-17 2021-03-17 Outpatient R RADIOLOGY [facility] [id number] Univers 00:00:00 00:00:00 ity of [facility] 2021-03-17 2021-03-17 Orders Doctor KAUR [id number] Univers 00:00:00 00:00:00 Only Unassigned, [place] [id number] [facility] [id number] Dank as [phone] [address] 2021-02-15 2021-02-15 Outpatient Daniel_T VFP VFP [id number] [address] [place] [address] 12:27:00 12:27:00 [id number] Family Practic e 2021-02-13 2021-02-13 Outpatient Daniel_T VFP VFP [id number] [address] [place] [address] 04:02:00 04:02:00 [id number] Family Practic e 2021-02-13 2021-02-13 Ang VFP [place] - [id number] [facility] 00:00:00 00:00:00 Dilemelina [facility] Family [place], Medical - Practi jacinto ESTEVEZ: [id number] VM_HOU_Shad e Shadow ow [address] [facility], [address], [place] [address] , Ph. 2021-02-13 2021-02-13 Orders Doctor KAUR [id number] Univers 00:00:00 00:00:00 Only Unassigned, [place] [id number] [facility]y [facility] [place] [facility] [id number] Dank as [phone] [facility] 009 Branch 2021-02-07 2021-02-07 Outpatient Daniel_T VFP VFP [id number] [address] [place] [address] 11:37:00 11:37:00 [id number] Family Practic e 2021-02-07 2021-02-07 Outpatient Daniel_T VFP VFP [id number] [address] [place] [address] 11:37:00 11:37:00 [id number] Family Practic e 2021-01-09 2021-01-09 Outpatient Jacob SOLIS [facility] [id number] [facility] 08:00:00 08:00:00 CIRO ity of [facility] 2020-12-28 2020-12-28 Outpatient Daniel_T VFP VFP [id number] [address] [place] [address] 12:12:00 12:12:00 [id number] Family Practic e 2020-12-28 2020-12-28 Outpatient Daniel_T VFP VFP [id number] [address] [place] [address] 12:12:00 12:12:00 [id number] Family Practic e 2020-12-25 2020-12-25 Outpatient Daniel_T VFP VFP [id number] [address] [place] [address] 01:03:00 01:03:00 [id number] Family Practic e 2020-12-21 2020-12-21 Outpatient HERO [facility] [id number] Univers 08:00:00 08:00:00 JOSÉ daly [facility] 2020-12-20 2020-12-20 Outpatient Jacob SOLIS, [facility] [id number] Univers 08:30:00 08:30:00 CIRO aimee [facility] 2020-12-20 2020-12-20 Outpatient Daniel_T VFP VFP [id number] [address] 01:18:00 01:18:00 [id number] Family Practic e 2020-12-10 2020-12-10 Outpatient Daniel_T VFP VFP [id number] [facility] 03:04:00 03:04:00 [id number] Family Practic e 2020-11-20 2020-11-20 Outpatient Daniel_T VFP VFP [id number] [facility] 01:01:00 01:01:00 [id number] Family Practic e 2020-11-17 2020-11-17 Patient Hero [facility] [id number] Univers 00:00:00 00:00:[address] [facility] [id number] i ty of [facility] [id number] [place] [phone] [place] dical [address] [place] 2020-10-28 2020-10-28 Orders Doctor KAUR [id number] Univers 00:00:00 00:00:00 Only Unassigned, [place] [id number] [facility] [place] [facility] [id number] Dank as [phone] [facility] marian 009 Branch 2020-10-11 2020-10-11 Outpatient Daniel_T VFP VFP [id number] [facility] 02:52:00 02:52:00 [id number] Family Practic e 2020-10-07 2020-10-07 Orders Doctor KAUR [id number] Univers 00:00:00 00:00:00 Only Unassigned, [place] [id number] [facility] [id number] Dank as [phone] [facility] 009 Branch 2020-10-06 2020-10-06 Outpatient Daniel_T VFP VFP [id number] 20 [facility] 05:17:00 05:17:00 [id number] Family Practic e 2020-10-06 2020-10-06 Ang VFP [place] - [id number] V [facility] 00:00:00 00:00:00 [facility] Family Jam, Medical - Prackelvin casey MD: [id number] VM_HOEvelia_Shaian e Shadow ow [address], [address], [place] [address] , Ph. 2020-09-30 2020-09-30 Outpatient Jam_Charlie VFP VFP [id number] 20 [facility] 10:31:00 10:31:00 [id number] Family Sarika e 2020-09-16 2020-09-16 Emergency [facility] [id number] Univers 11:02:00 11:57:00 Rachel [place] [id number] i ty of [id number] [phone] [facility] 084 Branch 2020-09-16 2020-09-16 Orders Doctor KAUR [id number] Univers 00:00:00 00:00:00 Only Unassigned, [place] [id number] [facility] [id number] Dank as [phone] [facility] 009 [place] 2020-09-13 2020-09-13 Patient Latasha [facility] [id number] Univers 00:00:00 00:00:00 Secure Msg Wonmeena [facility] [id number] ity of [place] [id number] Dank as [place] [phone] T[place] ankur santiago 044 Branch [address] 2020-08-05 2020-08-05 Telephone [facility] [id number] Univers 00:00:00 00:00:00 Marbella [facility] [id number] ity of Surgical [id number] [place]ank as Specialti [phone] [place] dical es 370 Branch [place] 2020-08-05 2020-08-05 Telephone Latasha [facility] [id number] Univers 00:00:00 00:00:00 Wondiful [facility] [id number] ity of [place] [id number] [place]ank as Professio [phone] [place] dical nal [address] [place] [address] 2020-08-04 2020-08-04 Letter Latasha [facility] [id number] Univers 00:00:00 00:00:00 (Out) Wondiful [facility] [id number] ity of [place] [id number] Dank as Professio [phone] [place] dical nal 0[address] [place] Office [facility] 2020-08-03 2020-08-03 Laboratory Lab, Adc Fam Pob I [facility] [id number] [id number] Univers 18:24:15 18:44:15 Only [place], [facility] [id number] ity of [place] [id number] Dank as Professio [phone] [place] dical nal 044 [place] Office [facility] 2020-08-03 2020-08-03 Outpatient R [facility] [id number] Univers 18:20:00 18:20:00 ity of [facility] 2020-07-21 2020-07-21 Telephone Tye [facility] [id number] Univers 00:00:00 00:00:00 Qi[place]atya [place] 350.1.13.10 [place] [phone] [place] dical nal 059 [facility] 2020-07-21 2020-07-21 Orders Doctor KAUR 1.2.840.114 [id number] Univers 00:00:00 00:00:00 Only Unassigned, [place] 350.1.13.10 ity of [place] [facility] 4.2.7.2.686 Dank as [phone] [address] 2020-07-20 2020-07-20 Laboratory Pc, Adc Echo Room 1 - [facility] 1 .2.840.114 [id number] Univers 07:59:54 08:59:54 Only Shaw Peña 350.1.13. 10 ity [facility] [place] [phone] [place] dical nal 059 [facility] 2020-07-20 2020-07-20 Outpatient R [facility] [id number] Univers 08:00:00 08:00:00 ity [facility] 2020-07-08 2020-07-08 Outpatient R [facility] [id number] Univers 09:00:00 09:00:00 ity [facility] 2020-07-05 2020-07-05 Outpatient Daniel_T VFP VFP [id number] [facility] 05:52:00 05:52:00 Family Practic e 2020-07-05 2020-07-05 Ang VFP [place] - [id number] V illage 00:00:00 00:00:00 [facility] Family JamKorey - Prackelvin casey MD: [id number] VM_HOU_Dani e [facility] [address] [address] , Ph. 2020-06-30 2020-06-30 Outpatient Danijonah_T VFP VFP [id number] [facility] 02:54:00 02:54:00 [id number] Family Practic e 2020-06-28 2020-06-28 [facility] 1..840.114 [id number] Univers 14:42:48 15:45:21 Visit Nkechi [place] 350.1.13.10 ity [facility] [place] [phone] [place] dical nal 059 [facility] 2020-06-28 2020-06-[address] [facility] [id number] Univers 15:00:00 15:00:00 NKECHI gonzalez f [facility] 2020-06-28 2020-06-28 Patient [facility] 1..840.114 [id number] Univers 00:00:00 00:00:00 Secure Ms Wonful [facility] 350.1.13.10 ity of [place] 4.2.7.2.686 Dank as Professio [phone] Tx dical nal [address] [place] [address] Office Building One 2020-06-27 2020-06-27 Outpatient Jam_Charlie VFP VFP [id number] [facility] 03:05:00 03:05:00 [id number] Family Practic e 2020-06-23 2020-06-23 Case Latasha [facility] 1.2.840.114 [id number] Univers 00:00:00 00:00:00 Management Wondiful A Health 350.1.13.10 ity of [place] 4.2.7.2.686 [place]ank [place] Professio [phone] [address] Office [facility] One 2020-06-21 2020-06-21 Housekeeping/Laundry Supervisor Lab, Adc Fam Pob I [facility] 1.2. 840.114 [id number] Univers 09:40:32 10:00:32 Visit New FreedomJohnson overtonallierenato [facility] 350.1.13.1 0 ity of [place] 4.2.7.2.686 [place]ank [place] Professio [phone] Tx rodolfoal [address] Office [facility] One 2020-06-21 2020-06-21 Office Latasha [facility] 1.2.840.114 [id number] Univers 08:28:04 09:40:39 Visit Neymar [facility] 350.1.13.10 ity of [place] 4.2.7.2.686 Dank as Professio [phone] [address] Office [facility] One 2020-06-21 2020-06-21 Outpatient R LATASHA [facility] [id number] Univers 08:30:00 08:30:00 WONDIFUL ity o f [facility] 2020-06-17 2020-06-17 Letter [facility] [id number] Univers 00:00:00 00:00:00 (Out) Maxx MULTISPEC 350.1.13.10 [place] [phone] [facility] AND [address] DI[facility]ET[facility] 2020-06-16 2020-06-16 Telephone Genaro [facility] 1.2.840.114 [id number] Univers 00:00:00 00:00:00 Maxx MULTISPEC 350.1.13.10 ity of [place] 4.2.7.2.[address] [facility] [place] [phone] [address] DI[facility] 2020-06-14 2020-06-14 Office Maxx Lam [facility] 1.2.840 .114 [id number] Univers 13:14:25 16:06:03 Visit Yusra AmayaPEC 350.1.13.10 ity of [place] 4.2.7.2.[address] [facility] [place] [phone] [address] [facility] 2020-06-14 2020-06-14 Outpatient R MONIQUE [facility] [id number] Univers 13:30:00 13:30:00 YUSRA daly o f [facility] 2020-06-14 2020-06-14 Orders Doctor KAUR 1.2.840.114 [id number] Univers 00:00:00 00:00:00 Only Unassigned, [place] 350.1.13.10 ity of [place] [facility] 4.2.7.2.686 Dank as [phone] [facility] [address] 2020-05-03 2020-05-03 Hospital Radiology [facility] 1.2.840.114 [id number] Univers 14:48:28 23:59:00 Encounter [place] 350.1.13.10 ity of [place] 4.2.7.2.[address] [facility] [place] [phone] [facility] [address] 2020-05-03 2020-05-03 Hospital Radiology [facility] 1.2.840.114 [id number] Univers 14:47:35 14:47:35 Encounter [place] 350.1.13.10 ity of [place] 4.2.7.2.[address] [facility] [place] [phone] [facility] [address] 2020-05-03 2020-05-03 Outpatient R RADIOLOGY [facility] [id number] Univers 00:00:00 00:00:00 ity of [facility] 2020-04-26 2020-04-26 Outpatient R MONIQUE [facility] [id number] Univers 10:30:00 10:30:00 YUSRA jenny o f [facility] 2020-04-26 2020-04-26 Case [facility] 1.2.524.109 [id number] Univers 00:00:00 00:00:00 Management Maxx ALICIAPEC 350.1.13.10 it[place] of [place] [phone] [facility] AND HOLLIDAY [address] [place] DI[facility] 2020-02-22 2020-02-22 Office Maxx Lam [facility] 1.2.8 40.114 [id number] Univers 10:08:06 10:30:23 Visit Randy Deutsch [facility] 350.1.13.10 ity of [place] [facility] 4.2.7.2.686 [facility] [phone] [facility] [address] [place] 2020-02-22 2020-02-22 Outpatient R THOMAS [facility] [id number] Univers 10:00:00 10:00:00 RANDY daly of [facility] 2020-02-22 2020-02-22 Orders Doctor KAUR 1.2.840.114 [id number] Univers 00:00:00 00:00:00 Only Unassigned, [place] 350.1.13.10 ity of [place] [facility] 4.2.7.2.686 Dank as [phone] [facility] [address] 2020-02-11 2020-02-11 Outpatient Jacob BURKETT [facility] [id number] Univers 09:00:00 09:00:00 RYAN daly of [facility] 2020-02-03 2020-02-03 Emergency [facility] 1.2.051.101 [id number] Univers 13:08:16 14:01:00 Josias [place] 350.1.13.10 i ty of [place].2.[place] [phone] [facility] [address] 2019-12-09 2019-12-09 Telephone KAUR Mix [id number] [id number] Univers 00:00:00 00:00:00 Anoop [place] 350.1.13.10 it y of [facility] 4.2.7.2.686 [place]ank as [phone] [address] 2019-12-07 2019-12-07 Urgent Pob1, Acute Care Clinic [facility] 1. 2.840.114 [id number] Univers 10:14:57 10:34:57 Mina Mix [facility] 350.1.13.10 ity of [place] 4.2.7.2.686 [place]ank [place] Professio [phone] [facility] [address] [place] Office [facility] One 2019-12-07 2019-12-07 Outpatient R MARIA DEL ROSARIO [facility] [id number] Univers 10:20:00 10:20:00 ANOOP ity of [facility] 2019-12-07 2019-12-07 Telephone Pob1, Acute [facility] 1.2.840.114 [id number] Univers 00:00:00 00:00:00 [facility] Health 350.1.13.10 ity of [place] 4.2.7.2.686 [place] Professio [phone] [facility] [address] [place] Office [facility] One 2019-12-07 2019-12-07 Patient Latasha [facility] 1.2.840.114 [id number] Univers 00:00:00 00:00:00 Secure Msg Wondiful A [place] 350.1.13.10 it[place] [phone] T[place] dicvalor health 044 [facility] 2019-10-22 2019-10-22 Refill [facility] 1.2.840.114 [id number] Univers 00:00:00 00:00:00 Wondiful A Health 350.1.13.10 ity of [place] 4.2.7.2.686 [place] Professio [phone] [facility] [address] [place] Office [facility] One 2019-04-08 2019-04-08 Refeldon Damico [facility] 1.2.840.114 [id number] Univers 00:00:00 00:00:00 Judy [place] 350.1.13.10 i ty of [place]2.7.2.[place] [phone] [facility] 220 [facility] 2019-04-08 2019-04-08 Refill [facility] 1.2.840.114 [id number] Univers 00:00:00 00:00:00 IActionable 350.1.13.10 itNate 4.2.7.2.686 [place] [phone] [address] Office Building One Results Test Description Test Time Test Comments Results Result Comments Source Hemoglobin A1c measurement device panel 2022-02-16 16:14:33 Test Item Value Reference Range Interpretation Comme nts Hemoglobin A1C Fingerstick: (test code = Hemoglobin A1C Fingerstick :) 6.3 [facility] Capillary [id number] 16:11:02 Test Item Value Reference Range Interpretation Comments Blood Glucose: mg/dl (test code = Blood 130 Glucose: mg/dl) [facility] [id number] 08:22:37 Test Item Value Reference Range Interpretation Comments Hemoglobin A1C Fingerstick: (test code 5.8 = Hemoglobin A1C Fingerstick:) [facility] [Mass/volume] in Capillary [id number] 08:19:24 Test Item Value Reference Range Interpretation Comments Blood Glucose: mg/dl (test code = Blood 110 Glucose: mg/dl) [facility] [id number] 20:56:23 Examination:BI SCREENING MAMMOGRAM BILATERAL History:Patient is 44 year old and is seen for: ?Encounter for screening mammogram for breast cancer. Computer- aided detection (CAD) utilized. Comparisons: 01/29/2019 BI SCREENING [...] no significant changes. Impression:No signs of malignancy. Recommendation:Annual mammographic follow-up - Bilateral BI-RADS Category: Both 2 - [facility] PELVIS COMPLETE WITH [id number] 20:43:20HISTORY: Pelvic pain. TECHNIQUE: Both transabdominal and transvaginal pelvic ultrasound studieswere c ompleted by the technologist. FINDINGS: Uterus is slightly [...] x 2.0 cm (6.94 ml) and left ovaryis 4.3 x 2.0 x 1.6cm (7.58 ml). Calcifications are seen around the surface of the rightovary. Lower p ole of the left ovary showed partially decompressed [...] transvaginal pelvic ultrasound studieswere completed by the technologist.FINDINGS: Uterus is slightly enlarged, lying in retroverted positi on in thepelvis, best visualized with endovaginal technique, [...] uterus.3. 16mm corpus luteum in the left ovary.[facility]
[2023-04-03] MEDS ORDERED: NA CHLORIDE 0.9% 2,000 ML ONE (10:56)
[2023-04-03] MEDS ORDERED: INSULIN -REGULAR HUMAN 50 UNIT/0.5 ML ML ONE ×2 (10:56→11:14)
[2023-04-03 11:23] LABS: Absolute Lymphocytes (CBC) 1.6 K/uL (0.7-4.9); Hematocrit 39.4 % (36.0-45.0); Lymphocytes % 23.2 % (15.3-44.8); MCV 90.1 fL (80-100); MPV 10.2 fL (7.6-11.3); RBC Red Blood Cell Count 4.37 M/uL (3.86-4.86)
[2023-04-03 11:36] LABS: Potassium 3.9 mEq/L (3.5-5.1)
[2023-04-03 11:41] LABS: SARS-CoV-2 Antigen Rapid Res Negative (Negative)
[2023-04-03 12:12] LABS: Specific Gravity > 1.030 (1.005-1.030); Urine Bilirubin NEGATIVE (Negative); Urine Blood Negative (Negative); Urine Clarity Clear (Clear); Urine Color Light-Yellow (Yellow); Urine Glucose 4+ (Over) (Negative); Urine Protein NEGATIVE (Negative); Urine Urobilinogen Normal (Normal); Urine pH 5.5 (5.0-7.0)
--- NOTE | 2023-04-03 13:24 | EDPHYS ---
Physician Documentation [facility] Name: Pablito Bonner Age: 47 yrs Sex: Female : 1975 Arrival Date: 04/03/2023 Time: 10:24 Bed 5 Private MD: ED Physician Kam Tucker HPI: 04/03 10:35 This 47 yrs old Female presents to ER via Unassigned with complaints of High rn Blood Sugar, Headache, Blurred Vision. 10:35 The patient or guardian reports hyperglycemia, that was potentially precipitated by no rn particular event. Onset: The symptoms/episode began/occurred 1 week(s) ago. Associated signs and symptoms: Pertinent positives: polydipsia, polyuria, Pertinent negatives: seizure activity. Current symptoms: In the emergency department the patient's symptoms are unchanged from the initial presentation. The patient has experienced similar episodes in the past. The patient has not recently seen a physician. Pt reports has diabetes but for last few months has been trying supplements and stopped taking her prescribed meds, for last 1.5 weeks has been having higher blood sugars in 300-400s, generalized weakness, fatigue, nasal congestion, headache, and polyuria.. 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 - Social history:: Smoking status: Patient denies any tobacco usage or history of. - Family history:: not pertinent. - Hospitalizations: : No recent hospitalization is reported. ROS: 10:35 Constitutional: Negative for fever, chills, and weight loss, Cardiovascular: Negative rn for chest pain, palpitations, and edema, Respiratory: Negative for shortness of breath, cough, wheezing, and pleuritic chest pain, Abdomen/GI: Negative for abdominal pain, nausea, vomiting, diarrhea, and constipation, Back: Negative for injury and pain, : + polyuria MS/Extremity: Negative for injury and deformity, Skin: Negative for injury, rash, and discoloration, Neuro: Negative for numbness, tingling, and seizure. Exam: 10:35 Constitutional: This is a well developed, well nourished patient who is awake, alert, rn and in no acute distress. Ambulatory to room without difficulty. Head/Face: Normocephalic, atraumatic. ENT: dry MM Cardiovascular: Regular rate and rhythm. No pulse deficits. Respiratory: No increased work of breathing, no retractions or nasal flaring. Abdomen/GI: Soft, non-tender Skin: Warm, dry MS/ Extremity: Pulses equal, no cyanosis. Neuro: Awake and alert, GCS 15 Vital Signs: 10:39 BP 156 / 87; Pulse 73; Resp 17; Temp 98.1(O); Pulse Ox 98% on R/A; Weight 73.48 kg; me1 Height 5 ft. 3 in. ; Pain 8/10; 11:30 BP 143 / 73; Pulse 77; Resp 16; Pulse Ox 100% on R/A; db 12:30 BP 146 / 75; Pulse 71; Resp 16; Pulse Ox 100% on R/A; db 13:30 BP 132 / 85; Pulse 67; Resp 16; Pulse Ox 99% on R/A; db 10:39 Body Mass Index 28.70 (73.48 kg, 160.02 cm) me1 10:39 Pain Scale: Adult me1 MDM: 10:26 Patient medically screened. rn 13:22 Differential diagnosis: DKA, hyperglycemia, dehydration. rn 13:22 Data reviewed: vital signs, nurses notes, lab test result(s), and as a result, I will rn faculty patient. Counseling: I had a detailed discussion with the patient and/or guardian regarding: the historical points, exam findings, and any diagnostic results supporting the discharge/admit diagnosis, lab results, the need for outpatient follow up, to return to the emergency department if symptoms worsen or persist or if there are any questions or concerns that arise at home. Response to treatment: the patient's symptoms have markedly improved after treatment, and as a result, I will discharge patient. Special discussion: I discussed with the patient/guardian in detail that at this point there is no indication for admission to the hospital. It is understood, however, that if the symptoms persist or worsen the patient needs to return immediately for re-evaluation. Based on the history and exam findings, there is no indication for further emergent testing or inpatient evaluation. I discussed with the patient/guardian the need to see the primary care provider for further evaluation of the symptoms. 04/03 10:35 Order name: CBC with Diff; Complete Time: 11:31 rn 04/03 10:35 Order name: Basic Metabolic Panel; Complete Time: 11:44 rn 04/03 10:35 Order name: Urinalysis w/ reflexes; Complete Time: 12:44 rn 04/03 10:35 Order name: SARS RAPID; Complete Time: 11:44 rn 04/03 10:50 Order name: Glucose, Ancillary Testing; Complete Time: 11:05 EDMS 04/03 10:52 Order name: Glucose, Ancillary Testing EDMS 04/03 13:09 Order name: Glucose, Ancillary Testing; Complete Time: 13:22 EDMS 04/03 10:35 Order name: IV Start; Complete Time: 11:23 rn 04/03 10:35 Order name: Glucose Level; Complete Time: 10:55 rn 04/03 12:56 Order name: Glucose Level; Complete Time: 13:04 rn Administered Medications: 10:57 Drug: Insulin Regular Human Sub-Q 10 units {Co-Signature: bp (Galdino Fontaine RN).} db Route: Sub-Q; Site: right upper abdomen; 13:29 Follow up: Response: No adverse reaction db 11:15 Drug: NS 0.9% IV 1000 ml Route: IV; Rate: 1000 ml; Site: right antecubital; db 13:29 Follow up: Response: No adverse reaction; IV Status: Infusion continued; IV Intake: db 1000ml 11:15 Drug: NS 0.9% IV 1000 ml Route: IV; Rate: 1000 ml; Site: right antecubital; db 13:29 Follow up: Response: No adverse reaction; IV Status: Completed infusion; IV Intake: db 1000ml Point of Care Testing: Blood Glucose: 10:35 Blood Glucose: 434 mg/dL; me1 Ranges: Critical Glucose Levels:Adult <50 mg/dl or >400 mg/dl <40 mg/dl or >180 mg/dl Disposition Summary: 04/03/23 13:23 Discharge Ordered Location: Home rn Problem: new rn Symptoms: have improved rn Condition: Stable rn Diagnosis - Hyperglycemia, unspecified rn - Dehydration rn Followup: rn - With: Private Physician - When: 2 - 3 days - Reason: Recheck today's complaints, Re-evaluation by your physician Discharge Instructions: - Discharge Summary Sheet rn - Dehydration, Adult rn - Hyperglycemia rn - Blood Glucose Monitoring, Adult rn Forms: - Medication Reconciliation Form rn - Thank You Letter rn - Antibiotic assistant county attorney - Prescription Opioid Use rn - Patient Portal Instructions rn Prescriptions: - Metformin 500 mg Oral Tablet Extended Release 24 hr - take 1 tablet by ORAL route once daily with evening meal; 30 tablet; Refills: rn 0, Product Selection Permitted Signatures: Dispatcher [employer] Kam Calix MD MD rn Benton, Danielle, RN RN db Bonita Araya, MANDY RN ak1 Galdino Fontaine RN bp
--- NOTE | 2023-04-03 13:24 | ER ---
Nurse's Notes [facility] [place] Name: Pablito Bonner Age: 47 yrs Sex: Female : 1975 Arrival Date: 04/03/2023 Time: 10:24 Bed 5 Private MD: Diagnosis: Hyperglycemia, unspecified;Dehydration Presentation: 04/03 10:39 Chief complaint: Patient states: high blood sugar, blurred vision, headache. ky1 Coronavirus screen: Vaccine status: Patient reports receiving the 2nd dose of the covid vaccine. At this time, the client does not indicate any symptoms associated with coronavirus-19. Ebola Screen: No symptoms or risks identified at this time. Initial Sepsis Screen: Does the patient meet any 2 criteria? No. Patient's initial sepsis screen is negative. Does the patient have a suspected source of infection? No. Patient's initial sepsis screen is negative. Risk Assessment: Do you want to hurt yourself or someone else? Patient reports no desire to harm self or others. Onset of symptoms was March 24, 2023. 10:39 Method Of Arrival: Ambulatory [facility] 10:39 Acuity: KALLI 3 ky1 Triage Assessment: 10:41 Headache History: Denies prior headaches. General: Appears uncomfortable, well groomed, me1 well developed, well nourished, Behavior is calm, cooperative, appropriate for age, Reports fatigue for >3 days, blurred vision, headache, high blood sugar that is usually managed with diet and exercise, thirst, frequent urination. Pain: Complains of pain in head Pain does not radiate. Pain currently is 8 out of 10 on a pain scale. Quality of pain is described as aching, Pain began 2-3 days ago. Also complains of no other associated symptoms. Neuro: Level of Consciousness is awake, alert, obeys commands, Oriented to person, place, time, situation. Cardiovascular: Capillary refill < 3 seconds Patient's skin is warm and dry. Respiratory: Respiratory effort is even, unlabored, Respiratory pattern is regular, symmetrical. :. 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 - Social history:: Smoking status: Patient denies any tobacco usage or history of. - Family history:: not pertinent. - Hospitalizations: : No recent hospitalization is reported. Screenin:24 [facility] ED Fall Risk Assessment (Adult) History of falling in the last 3 months, db including since admission No falls in past 3 months (0 pts) Confusion or Disorientation No (0 pts) Intoxicated or Sedated No (0 pts) Impaired Gait No (0 pts) Mobility Assist Device Used No (0 pt) Altered Elimination No (0 pt) Score/Fall Risk Level 0 - 2 = Low Risk Oriented to surroundings, Maintained a safe environment. Abuse screen: Denies threats or abuse. Denies injuries from another. Nutritional screening: No deficits noted. Tuberculosis screening: No symptoms or risk factors identified. Assessment: 11:10 Reassessment: Patient appears in no apparent distress at this time. Patient and/or db family updated on plan of care and expected duration. Pain level reassessed. Patient is alert, oriented x 3, equal unlabored respirations, skin warm/dry/pink. General: Appears in no apparent distress. comfortable, Behavior is calm, cooperative. Pain: Complains of pain in head. Neuro: Level of Consciousness is awake, alert, obeys commands, Oriented to person, place, time, situation, Speech is normal, Reports dizziness, headache. 13:45 Reassessment: Patient appears in no apparent distress at this time. Patient and/or db family updated on plan of care and expected duration. Pain level reassessed. Patient is alert, oriented x 3, equal unlabored respirations, skin warm/dry/pink. General: Appears in no apparent distress. comfortable, Behavior is calm, cooperative. Neuro: Level of Consciousness is awake, alert, obeys commands, Oriented to person, place, time, situation. Respiratory: Airway is patent Respiratory effort is even, unlabored, Respiratory pattern is regular, symmetrical. Vital Signs: 10:39 BP 156 / 87; Pulse 73; Resp 17; Temp 98.1(O); Pulse Ox 98% on R/A; Weight 73.48 kg; me1 Height 5 ft. 3 in. ; Pain 8/10; 11:30 BP 143 / 73; Pulse 77; Resp 16; Pulse Ox 100% on R/A; db 12:30 BP 146 / 75; Pulse 71; Resp 16; Pulse Ox 100% on R/A; db 13:30 BP 132 / 85; Pulse 67; Resp 16; Pulse Ox 99% on R/A; db 10:39 Body Mass Index 28.70 (73.48 kg, 160.02 cm) me1 10:39 Pain Scale: Adult ky1 ED Course: 10:26 Patient arrived in ED. rg4 10:26 Kam Tucker MD is Attending Physician. rn 10:41 Triage completed. me1 10:54 Lisa Maxwell, RN is Primary Nurse. db 11:15 Inserted saline lock: 20 gauge in right antecubital area, using aseptic technique. db Blood collected. 11:24 Patient has correct armband on for positive identification. Bed in low position. Call db light in reach. Side rails up X 1. 13:45 No provider procedures requiring assistance completed. IV discontinued, intact, db bleeding controlled, No redness/swelling at site. 13:45 Provided Education on: DISCHARGE. db 14:09 Arm band placed on Patient placed in an exam room. db Administered Medications: 10:57 Drug: Insulin Regular Human Sub-Q 10 units {Co-Signature: bp (Galdino Fontaine RN).} db Route: Sub-Q; Site: right upper abdomen; 13:29 Follow up: Response: No adverse reaction db 11:15 Drug: NS 0.9% IV 1000 ml Route: IV; Rate: 1000 ml; Site: right antecubital; db 13:29 Follow up: Response: No adverse reaction; IV Status: Infusion continued; IV Intake: db 1000ml 11:15 Drug: NS 0.9% IV 1000 ml Route: IV; Rate: 1000 ml; Site: right antecubital; db 13:29 Follow up: Response: No adverse reaction; IV Status: Completed infusion; IV Intake: db 1000ml Medication: 13:45 VIS not applicable for this client. db Point of Care Testing: Blood Glucose: 10:35 Blood Glucose: 434 mg/dL; me1 Ranges: Intake: 13:29 IV: 1000ml; Total: 1000ml. db 13:29 IV: 1000ml; Total: 2000ml. db Outcome: 13:23 Discharge ordered by . rn 14:08 Discharged to home ambulatory. db 14:08 Condition: stable 14:08 Discharge instructions given to patient, Instructed on discharge instructions, follow up and referral plans. Prescriptions given X 1. 14:09 Patient left the ED. db Signatures: Kam Tucker MD MD rn Garcia, Rubi rg4 Lisa Maxwell RN RN db Bonita Araya, RN RN me1 Galdino Fontaine RN bp Corrections: (The following items were deleted from the chart) 10:47 10:46 Blood Glucose: Blood Glucose Fndeovr=866 mg/dL. me1 me1
[2023-04-03 14:33] VITALS: TEMP 98.1
[2023-04-03 14:36] VITALS: BP 132/85; O2SAT 99
== END 2023-04-03 14:09 | disposition home or self-care (01) ==
LOC: ER 10:24
DX: E11.65 Type 2 diabetes mellitus with hyperglycemia (principal); E86.0 Dehydration; Z20.822 Contact with and (suspected) exposure to COVID-19
CPT/HCPCS: 36415; 80048; 81003; 82947; 85025; 87811; J1815; J7030